=== PATIENT | male | born 1955 | race Caucasian/White ===

== ENCOUNTER → 2019-07-08 10:03 | Outpatient (CLI) | payer BC, SELFPAY ==
--- NOTE | 2019-07-08 10:21 | ECG_ITS ---
APPROVED REPORT Exam: Resting ECG HR:62 bpm ECG Measurements Heart Rate 62 AXES MT 144 P 34 QRSd 90 QRS 46 QT 412 T 47 QTc 418 <Conclusion> Normal sinus rhythm Normal ECG Electronically signed by : Jose Major, 07/09/2019 08:05:52
== END ==
PROVIDERS: PCP Family Medicine; Visit Provider Family Medicine
DX: R07.9 Chest pain, unspecified (principal)
CPT/HCPCS: 93005

== ENCOUNTER → 2019-07-13 07:56 | Outpatient (CLI) | payer SELFPAY ==
--- NOTE | 2019-07-13 | CA_ITS ---
APPROVED REPORT Exam: Exercise Treadmill Technologist: Maricruz Caldera Ht: 5 ft 11 in Wt: 185 lbs BSA: 2.04 m2 HR: 68 bpm BP: 120/74 mmHg Indications: Chest pain Stress Test Details Test: Urbano HR Resting HR: 68 bpm Max Heart Rate (APMHR): 158 bpm Max HR Achieved: 142 bpm Target HR (85% APMHR): 134 bpm % of APMHR: 89 Recovery HR: 84 bpm BP Resting BP: 120/74 mmHg Max BP: 157/75 mmHg Recovery BP: 139.0/73.0 mmHg ECG Clinical Exercise duration: 07:22 min Highest Stage Achieved: Exercise capacity: 10.1 METs Stress ECG Conclusion Resting ECG: Sinus rhythm Urbano protocol completed. Exercised 07:22. Test stopped due to shortness of breath, leg fatigue. Symptoms: Positive shortness of breath. Leg fatigue at peak exercise. Resolved in recovery. Arrhythmias/Ectopy: Less than 1.[address] depression. Conclusion: GXT only. Appropriate blood pressure response. No ectopy. Less than 1.[address] depression. No chest pain. Test Summary . . . . . . . . Stop exercise at 07:22 . . . . . Electronically signed by : Jose Major, 07/14/2019 17:17:41
--- NOTE | 2019-07-13 08:05 | CT_ITS ---
PROCEDURE: CT HEART W CALCIUM SCORE CLINICAL HISTORY: SCREENING COMPARISON: No exams were available for comparison TECHNIQUE: Gated images are obtained Axial images obtained with sagittal and coronal reformats. All CT scans at the facility use one or more dose reduction, viz: automated exposure control, ma/kV adjustment per patient size (including targeted exams where dose is matched to indication, i.e. head), or iterative reconstruction technique. FINDINGS: Coronary artery calcium score is 4 indicating minimal plaque burden with low cardiovascular disease risk Incidental findings include minimal pericardial thickening for anteriorly. There are atelectatic or fibrotic changes in the left lower lobe IMPRESSION: Minimal calcific plaque burden with low cardiovascular disease risk Dictated by: Angel Velázquez MD 07/13/2019 18:10 Electronically signed by Angel Velázquez MD in [place] 07/13/2019 18:10
== END ==
PROVIDERS: PCP Family Medicine; Visit Provider Family Medicine
DX: R07.9 Chest pain, unspecified (principal); Z13.6 Encounter for screening for cardiovascular disorders
CPT/HCPCS: 75571; 93017

== ENCOUNTER → 2019-07-13 08:00 | Outpatient (CLI) | payer BC, SELFPAY | PROVIDERS: PCP Family Medicine; Visit Provider Family Medicine | DX: R07.9 Chest pain, unspecified (principal) | CPT/HCPCS: 93017 ==

== ENCOUNTER → 2020-04-24 09:19 | Outpatient (CLI) | payer BC, SELFPAY ==
[2020-04-24 09:40] LABS: Basophils # 0.1 K/mm3 (0-0.2); Basophils % 0.8 % (0.1-2.0); Eosinophils # 0.2 K/mm3 (0.0-0.4); Eosinophils % 2.1 % (0.1-12.0); Hematocrit 56.3 % (42.0-52.0); Lymphocytes # 2.6 K/mm3 (0.7-4.5); Lymphocytes % 25.4 % (10-50); Mean Corpuscular HGB Conc 33.2 g/dL (31.8-35.4); Mean Corpuscular Hemoglobin 31.7 pg (27.0-31.2); Mean Corpuscular Volume 95.6 fl (80-94); Mean Platelet Volume 7.5 fl (7.4-10.4); Monocytes # 0.6 K/mm3 (0.1-1.0); Monocytes % 5.9 % (1.7-9.3); Neutrophils # 6.7 K/mm3 (1.8-7.8); Neutrophils % 65.8 % (37.0-80.0); Platelet Count 257 K/mm3 (142-424); Red Blood Count 5.89 M/mm3 (4.60-6.20); Red Cell Distribution Width 13.5 % (11.5-17.5); White Blood Count 10.2 K/mm3 (4.8-10.8)
[2020-04-24 09:42] LABS: Hemoglobin 18.6 g/dL (14.1-18.0)
[2020-04-24 11:08] LABS: Vitamin B12 742 pg/mL (239-931)
[2020-04-24 11:23] LABS: Folate 4.71 ng/mL
[2020-04-25 12:54] LABS: Ceruloplasmin 24.7 mg/dL (16.0-31.0)
== END ==
PROVIDERS: Visit Provider Nurse Practitioner Family
DX: R25.1 Tremor, unspecified (principal)
CPT/HCPCS: 36415; 82390; 82607; 82746; 85025

== ENCOUNTER → 2020-04-25 14:39 | Outpatient (CLI) | payer BC, SELFPAY ==
--- NOTE | 2020-04-25 14:53 | MR_ITS ---
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 No prior. COMPARISON: No exams were available for comparison TECHNIQUE: Routine multiplanar multi echo sequences are performed without gadolinium enhancement. FINDINGS: No midline shift, mass effect, intracranial hemorrhage, or hydrocephalus is evident. No evidence of acute infarction. The cerebellopontine angles, cerebellum, and brainstem have an unremarkable appearance. No abnormal white matter signal intensity. The pituitary optic chiasm, corpus callosum, and craniocervical junction have unremarkable appearance. The hippocampal gyri and temporal horns are unremarkable. No mastoid effusion or sinus air-fluid level. Small retention cyst is present in the medial wall the left maxillary sinus at 4 mm. IMPRESSION: Negative MRI of the brain. No acute intracranial findings. Dictated by: Angel Velázquez MD 04/26/2020 10:12 Angel Velázquez MD in [place] 04/26/2020 10:12
== END ==
PROVIDERS: PCP Family Medicine; Visit Provider Specialist
DX: R25.1 Tremor, unspecified (principal)
CPT/HCPCS: 70551

== ENCOUNTER → 2020-05-05 10:31 | Outpatient (CLI) | payer BC, SELFPAY ==
[2020-05-14 01:08] LABS: Erythropoietin 8.8 mIU/mL (2.6-18.5)
[2020-06-09 13:37] LABS: Carbon Monoxide, Whole Blood 2.3
== END ==
PROVIDERS: Visit Provider Internal Medicine Medical Oncology
DX: D45 Polycythemia vera (principal)
CPT/HCPCS: 36415; 81270; 82375; 82668

== ENCOUNTER → 2020-05-17 09:39 | Outpatient (CLI) | payer BC, SELFPAY | PROVIDERS: PCP Family Medicine; Visit Provider Internal Medicine Medical Oncology | DX: G47.33 Obstructive sleep apnea (adult) (pediatric) (principal); R53.83 Other fatigue | CPT/HCPCS: G0399 ==

== ENCOUNTER → 2020-10-04 11:17 | Outpatient (CLI) | payer BC, SELFPAY | PROVIDERS: Visit Provider Internal Medicine Gastroenterology | DX: Z20.822 Contact with and (suspected) exposure to COVID-19 (principal) | CPT/HCPCS: U0003 ==

== ENCOUNTER 2020-10-06 07:25 | Day surgery (SDC) | payer BC, SELFPAY ==
[2020-09-29 13:17] VITALS: BMI 26.5
[2020-10-06 07:46] VITALS: BP 136/79; PULSE 92; RESP 18; TEMP 36.6; O2SAT 95
[2020-10-06 07:54] LABS: POC Glucose,Bedside 123 (70-110)
--- NOTE | 2020-10-06 08:22 | P.PCN_ITS ---
[facility] Procedure Note Procedure Note:: Colonoscopy Procedure Report: Colonoscopy with cold snare polypectomy Endoscopist: Lauri Li II, MD Referring physician: Blu Estrada MD Date of Procedure: October 06, 2020 Equipment: Olympus 190 variable stiffness pediatric colonoscope Sedation: MAC sedation Indication: Mr. Shipley is a 64-year-old gentleman who is here for screening colonoscopy. His last colonoscopy 12 years ago was normal. He reports no abdominal pain, weight loss, change in his bowel habits or rectal bleeding. He reports no family history of colon cancer. His father had prostate cancer. Procedure: Prior to the procedure, a history and physical exam was performed, and patient's medications and allergies were reviewed. The risks, benefits and alternatives of the sedation and procedure were discussed with the patient. All questions were answered and informed consent was obtained. The patient was brought to the procedure room. Patient identification and proposed procedure were verified by the physician and the nurse. The patient was placed in a left lateral decubitus position and the scope was passed under direct vision. Throughout the procedure, the patient's blood pressure, pulse, and oxygen saturations were monitored continuously. The colonoscopy was accomplished without difficulty. The patient tolerated the procedure well. Findings: On digital rectal examination there was normal rectal tone. There were no external hemorrhoids. The prostate was 2-3+, smooth, soft, symmetric without nodules. The colonoscope was introduced through the anal canal to the rectum and advanced to the cecum. The ileocecal valve and appendiceal orifice were identified. The scope was advanced a short distance into the ileum which appeared grossly normal. The scope was then withdrawn into the colon. There were a total of 4 diminutive polyps (cecum x3 (3, 3 and 4 mm) and descending x1 (3 mm)) which were all removed via cold snare polypectomy. The remaining cecum, ascending and transverse colon and mucosa were grossly normal. There were scattered diverticuli throughout the descending and sigmoid colon (LEFT colon). The rectum itself was normal. Upon retroflexion within the rectum there were grade 1-2 internal hemorrhoids. The preparation was excellent throughout with Emerson Preparation Score of 9. The cecal time was 12 minutes. Impression: 1. Diminutive colonic polyps x4 2. Left-sided diverticulosis 3. Grade 1-2 internal hemorrhoids Plan: I will follow up the polyp pathology and recommend repeat colonoscopy again in 5-7 years based upon the polyp histology. I would encourage bulking fiber supplementation on a long-term daily maintenance basis.
--- NOTE | 2020-10-06 08:25 | P.PN_ITS ---
[facility] Anesthesia Checklist - Patient Identification Patient Identification: Arm Band - Structural Data Admitted From: Home Planned Operative Procedure/s: colonoscopy Consent for Planned Operative Procedure(s) Verified: Yes Verified Documents: Surgical Consent, History and Physical - NPO Status Verified Time NPO: 00:00 - Additional verifications Anesthesia Reactions: No - Airway Assessment C-Spine Mobility Assessed: Yes (mp2) TMJ Mobility Assessed: Yes Dentition: Good Dentition - Neurological Assessment Level of Consciousness: Awake, Alert - Anesthesia Plan Anesthesia Risk discussed: Yes Anesthesia Plan: Verified ASA Class: III Anesthesia Type: MAC [facility] History I have reviewed the patient's past medical history: Yes Medical History: Reports:: Anxiety, Diabetes Mellitus Type 2, Hyperlipidemia, Hypertension Denies:: Cancer, Diabetes Mellitus Type 1, Internal Pacemaker, MRSA, Seizures *Have you ever received a pneumonia vaccine?: No *Have you received a flu vaccine this season?: Yes Other Medical History: Reports: Arthritis Anesthesia experience/problems:: nac Other Surgeries: Yes: No Previous Surgery, Other. No: Pacemaker Amputation: No Fractures: No - *Social History Last grade of school completed: High school graduate Smoking Status: Never smoker Alcohol Intake: current Alcohol Intake Frequency:: holidays/special occasions only Substance Use Type: denies use *Occupational Status:: retired Housing: house Household Members: spouse *Travel in the last 8 weeks: None - Psychiatric History Pschychiatric History:: Reports:: Anxiety Family Hx:: Diabetes, Cancer
[2020-10-06 08:47] VITALS: BP 91/74; PULSE 75; RESP 18; TEMP 36.1; O2SAT 94
[2020-10-06 08:57] VITALS: BP 103/72; PULSE 70; RESP 18; O2SAT 93
[2020-10-06 09:14] VITALS: BP 128/72; PULSE 80; RESP 18; O2SAT 93
[2020-10-06 09:36] VITALS: BP 124/75; PULSE 69; RESP 18; O2SAT 97
[2020-10-06 12:27] VITALS: O2SAT 97
== END 2020-10-06 09:49 | disposition home or self-care (01) ==
PROVIDERS: PCP Family Medicine; Visit Provider Internal Medicine Gastroenterology
PROC: 0DJD8ZZ Inspection of Lower Intestinal Tract, Via Natural or Artificial Opening Endoscopic (ICD-10-PCS; CPT 45378; principal; 2020-10-06 08:30)
DX: Z12.11 Encounter for screening for malignant neoplasm of colon (principal); K63.5 Polyp of colon; K57.30 Diverticulosis of large intestine without perforation or abscess without bleeding; K64.0 First degree hemorrhoids; Z80.42 Family history of malignant neoplasm of prostate; E78.5 Hyperlipidemia, unspecified; I10 Essential (primary) hypertension; E11.9 Type 2 diabetes mellitus without complications; F41.9 Anxiety disorder, unspecified; M19.90 Unspecified osteoarthritis, unspecified site; Z83.3 Family history of diabetes mellitus; Z79.899 Other long term (current) drug therapy
CPT/HCPCS: 45385; 82962

== ENCOUNTER → 2020-11-16 14:53 | Outpatient (CLI) | payer BC, SELFPAY ==
[2020-11-16 16:03] LABS: Chloride 103 mmol/L (98-107); Potassium 4.3 mmoL/L (3.5-5.1); Sodium 138 mmol/L (136-145)
[2020-11-16 16:05] LABS: Blood Urea Nitrogen 21 mg/dl (9-20); Estimated Glomerular Filt Rate 75 ml/min (>60); GFR (African American) 91 ML/MIN (>60)
[2020-11-16 16:06] LABS: Alanine Aminotransferase 32 U/L (12-78); Albumin Level 4.1 g/dl (3.5-5.0); Albumin/Globulin Ratio 1.5 (1.1-1.8); Alkaline Phosphatase 66 U/L (38-126); Anion Gap 16.3 mEq/L (5-15); Aspartate Amino Transferase 33 U/L (17-59); Bilirubin,Total 0.2 mg/dl (0.2-1.3); Calcium 9.3 mg/dl (8.4-10.2); Carbon Dioxide 23 mmol/L (22.0-30.0); Globulin 2.7 g/dL (1.3-3.2); Glucose 140 mg/dl (74-100); Magnesium 1.8 mg/dl (1.6-2.3); Phosphorous 3.4 mg/dl (2.5-4.5); Total Protein,Serum 6.8 g/dl (6.3-8.2)
== END ==
PROVIDERS: Visit Provider Family Medicine
DX: R53.83 Other fatigue (principal)
CPT/HCPCS: 80053; 83735; 84100

== ENCOUNTER 2020-11-17 12:05 | Emergency (ER) | payer BC, SELFPAY ==
[2020-11-17 13:40] VITALS: BP 127/82; PULSE 89; RESP 18; TEMP 36.8; O2SAT 94; BMI 27.2
--- NOTE | 2020-11-17 14:13 | HMH.EDUTC ---
[facility] [place] Disposition Clinical Impression: Viral syndrome, Exposure to COVID-19 virus Disposition: Home, Self-Care Condition on Discharge: Good Instructions: DI for COVID-19 (Suspected or Confirmed ), Preventing the Spread of Coronavirus Discharge Instructions Additional Instructions: Drink plenty of fluids. Take tylenol for pain or fever. Return if you begin to have difficulty breathing. Follow up with your regular doctor. GO TO THE ER FOR ANY WORSENING SYMPTOMS Quarantine until you know the results of your covid-19 test. If it is positive, the health department should call you and give you further instructions about your length of Quarantine and other things. Notify your school or workplace of your results and follow their instructions regarding return to work/school. Referrals: Blu Estrada MD [Primary Care Provider] - Time of Disposition: 14:16 Medical Decision Making - Medical Records Medical records reviewed: No: I reviewed the patient's medical records. - Miky Inquiry Pt receiving controlled substance: No Vital Signs: 11/17/20 13:40 11/17/20 14:19 Temperature 98.3 F 98.3 F Temperature Source Oral Pulse Rate 89 Pulse Rate [Right Brachial] 89 Respiratory Rate 18 18 Blood Pressure 127/82 Blood Pressure [Right Arm] 127/82 Blood Pressure Mean [Right Arm] 97 Blood Pressure Source [Right Arm] Automatic Cuff Blood Pressure Position [Right Arm] Sitting 02 Sat by Pulse Oximetry 94 L Oxygen Delivery Method Room Air [facility] [place] HPI - General Stated complaint: covid test Time Seen by Provider: 11/17/20 14:13 Mode of Arrival: Ambulatory Source of Information: Patient Limitations: No Limitations Description of Symptoms (Recalled from Triage Doc. by RN): COVID TEST. STATES HE HAS BEEN FEELING SICK X 2 WEEKS HEENT Symptoms (Recalled from RN notes): No Resp Symptoms (Recalled from RN notes): No Skin Symptoms (Recalled from RN notes): No MS Symptoms (Recalled from RN notes): No Functional Status (Recalled from RN notes): WNL - History of Present Illness Provider Complaint: He is here to have a covid-19 test. He has felt very fatigued and he has had gi upset for the past several weeks. His pcp has did blood work and treated him diverticulitis. He states that he doesn't feel much better after finishing the anitibiotics that his pcp prescribed. He has an abdominal ct scan scheduled in 2 days to check further into the diverticulosis. He denies any cough, chest congestion, fever/chills/body aches. He has not been vaccinated against covid-19. - Related Data Home Medications Medication Instructions Recorded Confirmed empagliflozin 12.5 mg-metformin ER 1 tab PO BID 04/24/20 10/06/20 1,000 mg tablet,extended rel 24 hr lisinopril 10 1 tab PO DAILY tab 04/24/20 10/06/20 mg-hydrochlorothiazide 12.5 mg tablet meloxicam 15 mg tablet 15 mg PO DAILY tab 04/24/20 10/06/20 rosuvastatin 20 mg tablet 20 mg PO DAILY tab 04/24/20 10/06/20 cholecalciferol (vitamin D3) 125 125 mcg PO DAILY 06/19/20 10/06/20 mcg (5,000 unit) capsule Primidone 200 mg PO BID 09/29/20 10/06/20 Ubidecarenone/Vit E Acet [Co Q-10 2 each PO DAILY 09/29/20 10/06/20 100 mg Softgel] Allergies Allergy/AdvReac Type Severity Reaction Status Date / Time No Known Allergies Allergy Verified 10/06/20 07:39 - Worker's Comp Is this a Worker's Comp case?: No [facility] History - Hepatitis A Screen Drug use history?: No High risk sexual behaviors?: No History of sexually transmitted infection?: No Currently employed?: No Childcare worker?: No Do you have indoor plumbing?: Yes Do you have electricity?: Yes Attestation statement:: This patient has been screened for Hepatitis A risk factors. I have reviewed the patient's past medical history: Yes Medical History: Reports:: Anxiety, Diabetes Mellitus Type 2, Hyperlipidemia, Hypertension Denies:: Cancer, Diabetes Mellitus Type 1, Internal Pacemaker, MRSA, Seiz
[2020-11-17 14:19] VITALS: BP 127/82; PULSE 89; RESP 18; TEMP 36.8; O2SAT 94
== END 2020-11-17 14:22 | disposition home or self-care (01) ==
PROVIDERS: Emergency Provider Nurse Practitioner Family; PCP Family Medicine
DX: B34.9 Viral infection, unspecified (principal); Z20.822 Contact with and (suspected) exposure to COVID-19; I10 Essential (primary) hypertension; E11.9 Type 2 diabetes mellitus without complications; E78.5 Hyperlipidemia, unspecified; F41.9 Anxiety disorder, unspecified; Z79.899 Other long term (current) drug therapy
CPT/HCPCS: 99202; G0463; U0003

== ENCOUNTER → 2020-11-21 11:04 | Outpatient (CLI) | payer BC, SELFPAY ==
--- NOTE | 2020-11-21 11:12 | CT_ITS ---
PROCEDURE: CT ABDOMEN PELVIS W CON CLINICAL INDICATION: ABD PAIN Diverticulitis COMPARISON: No exams were available for comparison TECHNIQUE: IV Contrast: 75ML Isovue 370 Oral Contrast 450ml Redicat Axial images obtained with sagittal and coronal reformats. All CT scans at the facility use one or more dose reduction, viz: automated exposure control, ma/kV adjustment per patient size (including targeted exams where dose is matched to indication, i.e. head), or iterative reconstruction technique. FINDINGS: LOWER THORAX: Mild atelectatic changes in the lung bases ABDOMEN & PELVIS: The liver and gallbladder, pancreas, and adrenal glands appear unremarkable. 4 mm I so density in the central aspect of the spleen nonspecific. The spleen has otherwise unremarkable appearance. No renal or ureteral calculi. No hydronephrosis or hydroureter No intestinal obstruction or free air. There is a mild amount of retained colonic feces. There is a prominent appendicolith within the distal aspect of the appendix which measures 11 by 5 mm. No evidence of appendicitis. There are small bilateral inguinal hernias containing fat. Urinary bladder wall slightly thickened nonspecific. There is diverticulosis of the sigmoid colon but no evidence of diverticulitis. No abscess or perforation apparent. Bowel gas pattern is nonspecific with no evidence of obstruction. There is a tiny umbilical hernia containing fat. No acute bony findings evident. IMPRESSION: 1. No acute finding. No evidence of diverticulitis, abscess, or perforation.. 2. Prominent appendicoliths at 11 x 5 mm. No evidence of appendicitis. 3. Small bilateral inguinal hernias containing fat and a small umbilical hernia containing fat. Dictated by: Angel Velázquez MD 11/22/2020 13:05 Angel Velázquez MD in [place] 11/22/2020 13:05
== END ==
PROVIDERS: PCP Family Medicine; Visit Provider Family Medicine
DX: R10.32 Left lower quadrant pain (principal)
CPT/HCPCS: 74177; Q9967

== ENCOUNTER → 2021-01-10 10:05 | Outpatient (CLI) | payer BC, SELFPAY ==
[2021-01-10 11:30] LABS: Basophils # 0.1 K/mm3 (0-0.2); Basophils % 0.7 % (0.1-2.0); Eosinophils # 0.3 K/mm3 (0.0-0.4); Eosinophils % 2.3 % (0.1-12.0); Hematocrit 52.9 % (42.0-52.0); Hemoglobin 17.3 g/dL (14.1-18.0); Lymphocytes # 1.7 K/mm3 (0.7-4.5); Lymphocytes % 13.9 % (10-50); Mean Corpuscular HGB Conc 32.7 g/dL (31.8-35.4); Mean Corpuscular Hemoglobin 32.8 pg (27.0-31.2); Mean Corpuscular Volume 100.4 fl (80-94); Mean Platelet Volume 7.4 fl (7.4-10.4); Monocytes # 0.7 K/mm3 (0.1-1.0); Monocytes % 5.7 % (1.7-9.3); Neutrophils # 9.3 K/mm3 (1.8-7.8); Neutrophils % 77.4 % (37.0-80.0); Platelet Count 232 K/mm3 (142-424); Red Blood Count 5.27 M/mm3 (4.60-6.20); Red Cell Distribution Width 13.4 % (11.5-17.5)
== END ==
PROVIDERS: PCP Family Medicine; Visit Provider Family Medicine
DX: Z20.822 Contact with and (suspected) exposure to COVID-19 (principal)
CPT/HCPCS: 36415; 85025; C9803; U0003; U0005

== ENCOUNTER → 2021-03-13 09:24 | Outpatient (POV) | payer BC, SELFPAY | PROVIDERS: Visit Provider Dermatology | DX: Z00.00 Encounter for general adult medical examination without abnormal findings (principal) ==

== ENCOUNTER → 2021-06-06 10:25 | Outpatient (CLI) | payer BC, SELFPAY ==
[2021-06-06 12:49] LABS: Basophils # 0.1 K/mm3 (0-0.2); Basophils % 1.2 % (0.1-2.0); Eosinophils # 0.2 K/mm3 (0.0-0.4); Eosinophils % 2.4 % (0.1-12.0); Hematocrit 54.2 % (42.0-52.0); Hemoglobin 17.5 g/dL (14.1-18.0); Lymphocytes # 1.9 K/mm3 (0.7-4.5); Lymphocytes % 25.6 % (10-50); Mean Corpuscular HGB Conc 32.2 g/dL (31.8-35.4); Mean Corpuscular Hemoglobin 32.3 pg (27.0-31.2); Mean Corpuscular Volume 100.3 fl (80-94); Monocytes # 0.4 K/mm3 (0.1-1.0); Monocytes % 5.6 % (1.7-9.3); Neutrophils # 4.9 K/mm3 (1.8-7.8); Neutrophils % 65.2 % (37.0-80.0); Platelet Count 238 K/mm3 (142-424); Red Blood Count 5.41 M/mm3 (4.60-6.20); Red Cell Distribution Width 13.1 % (11.5-17.5); White Blood Count 7.5 K/mm3 (4.8-10.8)
[2021-06-06 13:10] LABS: C-Reactive Protein 4.5 mg/L (0-4)
[2021-06-06 14:01] LABS: Erythrocyte Sedimentation Rate 5 mm/hr (0-20)
== END ==
PROVIDERS: Visit Provider Orthopaedic Surgery
DX: Z01.818 Encounter for other preprocedural examination (principal); Z11.52 Encounter for screening for COVID-19
CPT/HCPCS: 36415; 85025; 85651; 86140; C9803; U0003; U0005

== ENCOUNTER 2021-06-08 06:02 | Day surgery (SDC) | payer BC, SELFPAY ==
[2021-06-07 11:02] VITALS: BMI 26.5
[2021-06-07 11:48] LABS: Chloride 105 mmol/L (98-107); Potassium 4.4 mmoL/L (3.5-5.1); Sodium 139 mmol/L (136-145)
[2021-06-07 11:51] LABS: Alanine Aminotransferase 26 U/L (12-78); Albumin Level 4.4 g/dl (3.5-5.0); Albumin/Globulin Ratio 1.7 (1.1-1.8); Alkaline Phosphatase 64 U/L (38-126); Anion Gap 13.4 mEq/L (5-15); Aspartate Amino Transferase 28 U/L (17-59); Bilirubin,Total 0.4 mg/dl (0.2-1.3); Blood Urea Nitrogen 19 mg/dl (9-20); Carbon Dioxide 25 mmol/L (22.0-30.0); Creatinine Clearance Estimated 89 mL/min (50-200); Estimated Glomerular Filt Rate 75 ml/min (>60); GFR (African American) 91 ML/MIN (>60); Globulin 2.6 g/dL (1.3-3.2)
[2021-06-07 11:52] LABS: Calcium 8.5 mg/dl (8.4-10.2); Glucose 130 mg/dl (74-100)
[2021-06-08 06:22] VITALS: BP 140/89; PULSE 67; RESP 18; TEMP 36.2; O2SAT 96
--- NOTE | 2021-06-08 08:02 | HMH.ANESCL ---
[facility] Anesthesia Checklist - Patient Identification Patient Identification: Arm Band - Structural Data Admitted From: Home Planned Operative Procedure/s: Left Carpal Tunnel Release, Left Cubital Tunnel Release Consent for Planned Operative Procedure(s) Verified: Yes Verified Documents: Surgical Consent, History and Physical - NPO Status Verified Time NPO: 00:00 - Additional verifications Anesthesia Reactions: No Hx Blood Transfusions: No Blood Transfusion Reaction: No - Airway Assessment C-Spine Mobility Assessed: Yes (mp2) TMJ Mobility Assessed: Yes Dentition: Good Dentition - Neurological Assessment Level of Consciousness: Awake, Alert - Anesthesia Plan Anesthesia Risk discussed: Yes Anesthesia Plan: Verified ASA Class: II Anesthesia Type: MAC [facility] History I have reviewed the patient's past medical history: Yes Medical History: Reports:: Anxiety, Diabetes Mellitus Type 2, Hyperlipidemia, Hypertension Denies:: Cancer, Diabetes Mellitus Type 1, Internal Pacemaker, MRSA, Seizures *Have you ever received a pneumonia vaccine?: No *Have you received a flu vaccine this season?: Yes Other Medical History: Reports: Arthritis. Denies: Blood Transfusion Reaction Anesthesia experience/problems:: nac Other Surgeries: Yes: No Previous Surgery, Colonoscopy, Other. No: Pacemaker Amputation: No Fractures: No - *Social History Last grade of school completed: High school graduate Smoking Status: Never smoker Alcohol Intake: never Alcohol Intake Frequency:: holidays/special occasions only Substance Use Type: denies use *Occupational Status:: retired Housing: house Household Members: spouse *Travel in the last 8 weeks: None - Psychiatric History Pschychiatric History:: Reports:: Anxiety Family Hx:: Diabetes, Cancer
[2021-06-08 09:05] VITALS: BP 121/87; PULSE 63; RESP 16; TEMP 36.2; O2SAT 92
[2021-06-08 09:20] VITALS: BP 135/77; PULSE 54; RESP 16; O2SAT 95
--- NOTE | 2021-06-08 09:21 | HMH.OPNOTE ---
Date of procedure: 06/08/21 Pre-op Diagnosis:: Left carpal tunnel syndrome, left cubital tunnel syndrome Post-op Diagnosis:: Same Procedure performed:: Left endoscopic carpal tunnel release, left cubital tunnel release Surgeon:: Jose Guadalupe Benson JR, MD Anesthesia: GETA Estimated blood loss (mL): 5 Operative findings:: Decompression of the ulnar nerve at the elbow, median nerve at the wrist. Release of the transverse carpal ligament confirmed endoscopically. No ulnar nerve subluxation noted. Operative note:: Patient was identified in preoperative holding. Operative site was marked in indelible ink. History, physical, consent were reviewed and updated. Patient was surrendered to the anesthesia team, taken to the operative suite, placed supine on a well-padded operative table. A nonsterile tourniquet placed on the proximal brachium. Anesthesia was induced. The operative extremity was prepped and draped in the usual sterile fashion. The operative team donned sterile gowns and gloves and a timeout was called. All in attendance agreed regarding the patient's identity, procedure, operative site. Weight-based dose of antibiotics was given prior to incision. I made a transverse incision at the proximal wrist crease proximal to the transverse carpal ligament. I bluntly dissected through skin and subcutaneous tissue with care taken to avoid injuring the palmaris longus. I transected the fascia, inserted a dilating probe deep to the transverse carpal ligament and noted its depth distal to the transverse carpal ligament. I then inserted a cannula and scope, visualize the fibers of the transverse carpal ligament. I took to the distal aspect of the transverse carpal ligament to confirm its location, then with a curved blade under endoscopic visualization, transected the fibers of the transverse carpal ligament and noted that they retracted medially and laterally. I removed the cannula, achieved hemostasis, closed with Monocryl, Prineo and Dermabond. The patient was brought to the operating room and once an adequate general anesthesia was achieved, his left upper extremity was prepped and draped in standard sterile fashion. A sterile tourniquet was positioned and tourniquet was inflated at 250 mmHg. Perioperative antibiotics were infused. Time-out procedure was called. The medial epicondyle and the olecranon tip were well palpated. The incision was initiated at equidistant between the olecranon and the medial epicondyle. The ulnar nerve was identified proximally. It was mobilized with a blunt and a sharp dissection proximally to the arcade of [place], which was released sharply. The roof of the cubital tunnel was then incised and the nerve was mobilized distally to its motor branches. The ulnar nerve was well-isolated before it entered the cubital tunnel. The arch of the FCU was well defined. The fascia was elevated from the nerve and both the FCU fascia and the Ross fascia were divided protecting the nerve under direct visualization. Distally, the dissection was carried between the 2 heads of the FCU. Decompression of the nerve was performed between the heads of the FCU. The muscular branches were well protected. Similarly, the cutaneous branches in the arm and forearm were well protected. The venous plexus proximally and distally were well protected. The nerve was well mobilized from the cubital tunnel preserving the small longitudinal vessels accompanying it. Proximally, multiple vascular leashes were defined near the incision of the septum into the medial epicondyle, which were also protected. Once the in situ decompression of the ulnar nerve was performed proximally and distally, the elbow was flexed and extended. There was no evidence of any subluxation. Satisfactory decompression was performed. Tourniquet was released. Hemostasis was achieved. Subcutaneous layer was closed with 2-0 Vicryl and skin was approximated with Monocryl, Prineo, Dermabond. Nishant quinones
[2021-06-08 09:35] VITALS: BP 148/94; PULSE 58; RESP 16; O2SAT 94
[2021-06-08 09:50] VITALS: BP 131/79; PULSE 51; RESP 16; O2SAT 95
[2021-06-08 10:15] VITALS: BP 147/87; PULSE 54; RESP 16; O2SAT 95
[2021-12-20 10:58] LABS: POC Glucose,Bedside 152 (70-110)
== END 2021-06-08 10:15 | disposition home or self-care (01) ==
LOC: OR 06:04
PROVIDERS: PCP Family Medicine; Visit Provider Orthopaedic Surgery
PROC: (CPT 64721; principal; 2021-06-08 07:30)
DX: G56.02 Carpal tunnel syndrome, left upper limb (principal); G56.22 Lesion of ulnar nerve, left upper limb
CPT/HCPCS: 64721; 64718; 80053; 82962; 96374

== ENCOUNTER → 2021-07-26 09:31 | Outpatient (CLI) | payer BC, SELFPAY ==
--- NOTE | 2021-07-26 09:31 | MR_ITS ---
FINAL REPORT CLINICAL HISTORY: left wrist pain/ CTS left wrist pain , swelling and discolored , pt unable to move finger well pt also had surgery 8 weeks ago for carpal tunnel release and ulnar nerve release FINDINGS: MRI JOINT UPPER EXTREMITY W/O CONTRAST Multiplanar MR imaging of the left wrist was performed without contrast. There are mild degenerative changes. There is no evidence of fracture, bone bruise or marrow edema. There is no evidence of intrinsic ligament injury. There is a partial tear at the ulnar attachment of the triangular fibrocartilage. The flexor and extensor tendons are intact. There is small joint effusions. There is a 5 mm presumed ganglion cyst along the volar radial aspect of the wrist at the level of the distal radius. No focal abnormality is identified of the median nerve. IMPRESSION: Partial tear at the ulnar attachment of the triangular fibrocartilage. 5 mm presumed ganglion cyst as described. Small joint effusions. Reviewed, Interpreted and Dictated by Jose Billings III, MD Transcribed by Nicole Horowitz Authenticated by Jose Billings III, MD on 07/26/2021 12:53:15 PM [facility]
== END ==
PROVIDERS: PCP Family Medicine; Visit Provider Orthopaedic Surgery
DX: G56.02 Carpal tunnel syndrome, left upper limb (principal); G56.22 Lesion of ulnar nerve, left upper limb
CPT/HCPCS: 73221

== ENCOUNTER 2021-08-08 10:00 | Outpatient (RCR) | payer BC, SELFPAY ==
--- NOTE | 2021-07-02 10:49 | HMH.OTOPEV ---
OT Inpatient Evaluation Rehab OT Outpatient Eval Start: 07/02/21 10:17 Freq: Status: Active Protocol: Document 07/02/21 10:18 JAVIER (Rec: 07/02/21 10:49 JAVIER [id number]) Electronically Signed By Lisseth Britton OT 07/02/21 10:18 Outpatient Therapy Subjective History Subjective History 65 year old male referred to skilled OP OT services for left carpal tunnel release and left cubital tunnel release on 06/08/21. However Patient is only being seen for left carpal tunnel release due to increase pain, limited AROM and triage clinician strengthening. Patient stated having difficulty with grasping everday items such as hygiene/ grooming and utensils for self feeding. Patient stated to be dropping items 2* pain and weakness. Chief Complaint Pain,Weakness,Decreased Coordination Symptom Type Ache,Numbness,Tingling, Shooting Symptoms Relieved By Nothing Symptoms Aggravated By Physical Activity Prior Functional Limitations None Current Functional Limitations Reaching,Lifting,Recreation Activity Symptom Description Intermittent Level of pain today (0-10) 0 Pain scale - at its best (0-10) 0 Pain scale - at its worst (0-10) 9 Wrist/Hand Eval Wrist Range of Motion Left Wrist Extension Active Range of Motion ( 54 degrees) Wrist Flexion Active Range of Motion ( 60 degrees) Wrist Radial Deviation Active Range of 16 Motion (degrees) Wrist Ulnar Deviation Active Range of 20 Motion (degrees) Forearm Supination Active Range of 90 Motion (degrees) Forearm Pronation Active Range of Motion 90 (degrees) Lithograph Printer/Pinch Strength Right Lithograph Printer Strength Measurement (lbs) 65 Left Lithograph Printer Strength Measurement (lbs) 18 OT Outpatient Assessment Impairments Problems/Impairments Impaired Range of Motion, Impaired Strength,Subjective C /O Pain Prognosis Rehab Potential Good Clinical Impression Consistent with Diagnosis Yes Short Term Goals Number of Weeks 2 Increase Range of Motion Yes: AROM of L UE wrist flex: 65; ext: 60; RD: 18; UD: 25
== END 2021-08-08 10:05 | disposition home or self-care (01) ==
LOC: OT 10:00
PROVIDERS: Visit Provider Orthopaedic Surgery
DX: G56.02 Carpal tunnel syndrome, left upper limb (principal)
CPT/HCPCS: 97010; 97014; 97035; 97110; 97140; 97164; 97165; 97530; G0283

== ENCOUNTER → 2022-10-29 13:46 | Outpatient (POV) | payer MEDICARE, BC, SELFPAY | PROVIDERS: Visit Provider Dermatology | DX: Z00.00 Encounter for general adult medical examination without abnormal findings (principal) ==

== ENCOUNTER 2023-01-06 08:00 | Emergency (ER) | payer MEDICARE, BC, SELFPAY ==
[2023-01-06 08:10] VITALS: BP 131/75; PULSE 96; RESP 20; TEMP 36.8; O2SAT 94; BMI 25.8
--- NOTE | 2023-01-06 08:23 | EXP.UTC ---
Discharge Plan Disposition Patient Disposition: Home, Self-Care Condition: Good Prescriptions Prescriptions: New amoxicillin [amoxicillin] 875 mg tablet 875 mg PO Q12H Qty: 20 0RF methylprednisolone 4 mg Tablets,Dose Pack 4 mg PO DIRECTED Qty: 21 0RF hirvxjzwikuhmxu-rifjunxfl-UO [Bromfed DM] 2-30-10 mg/5 mL Syrup 5 ml PO Q6H PRN (Reason: Cough) Qty: 240 0RF ondansetron 4 mg Tablet,Disintegrating 4 mg PO Q8H PRN (Reason: Nausea) Qty: 12 0RF No Action empagliflozin-metformin 12.5-1,000 mg tablet, IR - ER, biphasic 24hr 1 tab PO BID lisinopril-hydrochlorothiazide 10-12.5 mg tablet 1 tab PO DAILY Patient Comments: TAKE 1 TABLET BY MOUTH ONCE DAILY rosuvastatin 20 mg tablet 20 mg PO DAILY meloxicam 15 mg tablet 15 mg PO DAILY primidone 250 mg tablet 250 mg PO BID Patient Comments: TAKE 1 TABLET BY MOUTH TWICE DAILY propranolol 160 mg capsule,extended release 24 hr 160 mg PO DAILY Patient Comments: TAKE 1 CAPSULE BY MOUTH ONCE DAILY Rybelsus 7 mg tablet 7 mg PO DAILY cholecalciferol (vitamin D3) 125 mcg (5,000 unit) capsule 125 mcg PO DAILY coenzyme Q10 [CoQ-10] 100 mg Capsule 200 mg PO DAILY Referrals Follow up/Referrals: Blu Estrada MD [Primary Care Provider] - See instructions Activity Restrictions/Add. Instructions Additional Instructions/Restrictions: Drink plenty of fluids. Take tylenol or ibuprofen for pain or fever. Take the medications as directed. Follow up with your regular doctor. GO TO THE ER FOR ANY WORSENING SYMPTOMS Clinical Impressions Clinical Impression: Pharyngitis, Acute viral syndrome, Exposure to 2019 novel coronavirus Instructions Patient Instructions: Dexamethasone Injection, Coronavirus Disease 2019, Preventing the Spread of Coronavirus Discharge Instructions Discharge ED Provider: Drake Motley [facility] HPI General Stated complaint: Sore throat and Headache Mode of Arrival: Ambulatory Source of Information: Patient Limitations: No Limitations Time Seen by Provider: 01/06/23 08:23 Description of Symptoms (Recalled from Triage Doc. by RN): PATIENT C/O HEADACHE, CONGESTION, AND SORE THROAT X 3 DAYS. HE STATES HIS TESTED POSITIVE FOR COVID ON FRIDAY HEENT Symptoms (Recalled from RN notes): Yes Resp Symptoms (Recalled from RN notes): No Skin Symptoms (Recalled from RN notes): No MS Symptoms (Recalled from RN notes): No Functional Status (Recalled from RN notes): WNL History of Present Illness Provider Complaint: He states that for the past 2 days he has had a very sore throat and chills. His tested positive for covid-19 1 day ago. He denies any chest congestion and shortness of breath. Related Data Home Medications Medication Instructions Recorded Confirmed empagliflozin 12.5 mg-metformin ER 1 tab PO BID Diabetes 04/24/20 01/06/23 1,000 mg tablet,extended rel 24 hr lisinopril 10 1 tab PO DAILY Hypertension 04/24/20 01/06/23 mg-hydrochlorothiazide 12.5 mg tablet meloxicam 15 mg tablet 15 mg PO DAILY Arthritis 04/24/20 01/06/23 rosuvastatin 20 mg tablet 20 mg PO DAILY Cholesterol 04/24/20 01/06/23 cholecalciferol (vitamin D3) 125 125 mcg PO DAILY Supplement 06/19/20 01/06/23 mcg (5,000 unit) capsule primidone 250 mg tablet 250 mg PO BID 07/30/21 01/06/23 propranolol 160 mg capsule,24 160 mg PO DAILY 07/30/21 01/06/23 hr,extended release semaglutide 7 mg tablet (Rybelsus) 7 mg PO DAILY 01/01/23 01/06/23 coenzyme Q10 100 mg capsule 200 mg PO DAILY 01/06/23 01/06/23 (CoQ-10) Previous Rx's Medication Instructions Recorded amoxicillin 875 mg tablet 875 mg PO Q12H #20 tabs 01/06/23 wgmufzpyyrrcddy-qhrowtkbaueyuju-MT 5 ml PO Q6H PRN Cough #240 mL 01/06/23 2 mg-30 mg-10 mg/5 mL oral syrup (Bromfed DM) methylprednisolone 4 mg tablets in 4 mg PO DIRECTED #21 tabs 01/06/23 a dose pack ondansetron 4 mg disintegrating 4 mg PO Q8H PRN Na
[2023-01-06 08:26] LABS: UTC Strep Screen (Rapid) Negative (Negative)
[2023-01-06 08:39] VITALS: BP 131/75; PULSE 96; RESP 20; TEMP 36.8; O2SAT 94
== END 2023-01-06 08:46 | disposition home or self-care (01) ==
PROVIDERS: Emergency Provider Nurse Practitioner Family; PCP Family Medicine
DX: U07.1 COVID-19 (principal); R51.9 Headache, unspecified; I10 Essential (primary) hypertension; E78.5 Hyperlipidemia, unspecified; E11.9 Type 2 diabetes mellitus without complications; G47.33 Obstructive sleep apnea (adult) (pediatric); Z79.84 Long term (current) use of oral hypoglycemic drugs
CPT/HCPCS: 87635; 87880; 96372; 99212; 99214; G0463

== ENCOUNTER 2024-09-09 11:07 | Outpatient (CLI) | payer MEDICARE, BC, SELFPAY ==
--- OUTSIDE RECORDS SUMMARY | 2024-03-09 05:00 | XMS_ITS ---
Author Organization [facility] Address [address] [place] [id number] Care Team Providers Care Tub Puller Name Role Phone Blu Estrada Primary Care Provider Allergies No Known Allergies REASON FOR VISIT 6 month check Medications Medication SIG (Take, Route, Frequency, Duration) Notes Start Date End Date Status Synjardy XR 12.5-1000 MG 1 tab Orally Once a day Active Sildenafil Citrate 20 MG 1 to 5 tab(s) o rally once daily as needed 08/07/2020 Active RELION GLUCOMETER 10/17/2016 A ctive Vitamin D3 125 MCG (5000 UT) 1 cap(s) orally once a day Active Rybelsus 7 MG 1 tablet at least 30 minutes before first food, beverage or other oral medicine of the day Orally Once a day 09/05/2022 Active Meloxicam 15 MG 1 tablet Orally once daily for 90 days Active ReliOn Blood Glucose Test - as directed In Vitro Active ReliOn Lancets Ultra-Thin 30G - as directed Active Terbinafine HCl 250 MG 1 tablet Orally O nce a day for 90 days 03/09/2024 Active CoQ-10 100 MG as directed Orally Active Propranolol HCl ER 160 MG 1 capsule Oral ly Once a day for 90 days Active Rosuvastatin Calcium 20 MG 1 tab(s) oral ly once a day (at bedtime) for 90 days Active Modafinil 100 MG 1 tab(s) Orally Two times a day Active Primidone 250 MG 1 tablet Orally Two times a day for 90 days Active Lisinopril 10 MG 1 tablet Orally Once a day Active Immunizations Vaccine Route Administration Date Status Comme nts Fluzone High Dose (65yr and older) IM Intramuscular 03/09/2024 Administered PNEUMOVAX 23 VACCINE IM Intramuscular 03/09/2024 Administe red Vital Signs Blood pressure systolic 120 mm Hg 03/09/20 24 Blood pressure diastolic 70 mm Hg 024 Heart Rate 90 /min 03/09/2024 Height 69.50 in 03/09/2024 Weight 182 lbs 03/09/2024 BMI 26.49 kg/m2 03/09/2024 Encounters Encounter Location Date Provider Diagnosis [facility] [address] [facility] 36 [facility] [address] [place] [id number] 03/09/2024 Blu Estrada Essential hypertensi on I10 ; Vitamin D deficiency E55.9 ; Mixed hyperlipidemia E78.2 ; Hypertriglyceridemia E78.1 ; Essential tremor G25.0 and Encounter for immunization Z23 Assessments Encounter Date Diagnosis (ICD Code) Assessment Notes Treatment Notes Treatment Clinical Notes Section Notes 03/09/2024 Essential hypertensi on (ICD-10 - I10) 03/09/2024 Vitamin D deficiency (ICD-10 - E55.9) 03/09/2024 Mixed hyperlipidemia (ICD-10 - E78.2) 03/09/2024 Hypertriglyceridemia (ICD-10 - E78.1) 03/09/2024 Essential tremor (IC D-10 - G25.0) 03/09/2024 Encounter for immunization (ICD-10 - Z23) Plan Of Treatment Medication Medication Name Sig Start Date Stop Date Notes Meloxicam 15 MG 1 tablet Orally once daily for 90 days Terbinafine HCl 250 MG 1 tablet Orally O nce a day for 90 days 03/09/2024 Propranolol HCl ER 160 MG 1 capsule Oral ly Once a day for 90 days Rosuvastatin Calcium 20 MG 1 tab(s) oral ly once a day (at bedtime) for 90 days Primidone 250 MG 1 tablet Orally Two times a day for 90 days Lisinopril 10 MG 1 tablet Orally Once a day Next Appt Details Follow Up: 6 Months, Reason: Provider Name:Blu allen, 03/09/2025 10:15:00 AM, [address] [facility], [address], [place], [id number], Progress Notes * Darrion COWAN:[birth year] (68 yo M)Acc No.[id number]:03/09/2024 Progress Notes Patient: Darrion CONNOR Provider: Cody Estrada M.D. :1955 A ge:68 Y S ex:Male Date:03/09/2024 Address:[address] [place] [address] [id number] Subjective: * Chief Complaints: * 1 . 6 month check. * HPI: C ardiology: 68 year old male presents with c/o Blood Pressure Elevated P t here for 6 mo f/u on hypertension, states he is doing well and does not have any concerns. c/o Hyperlipidemia P t is fasting today. E ndocrinology: c/o Recent Blood Sugars P t here to f/u on DM 2, pt states he does check blood sugar at home and it has been normal . Pt states he sees Endo and his A1C was 6.5% in January. * ROS: D ERMATOLOGY: no R allan. [...] day Orally Once a day , Taking Meloxicam 15 MG Tablet Take 1 tablet by mouth once daily , Taking Synjardy XR 12.5-1000 MG Tablet Extended Release 24 Hour 1 tab Orally Once a day , Taking Propranolol HCl ER 160 MG Capsule Extended Release 24 Hour 1 capsule Orally Once a day , Taking Rosuvastatin Calcium 20 MG Tablet 1 tab(s) orally once a day (at bedtime) , Taking Lisinopril 10 MG Tablet 1 tablet Orally Once a day , Taking Primidone 250 MG Tablet Take 1 tablet by mouth twice daily for 90 days , Discontinued Terbinafine HCl 250 MG Tablet 1 tablet Orally Once a day , Discontinued Cefdinir 300 MG Capsule 1 cap(s) Orally Two times a day , Medication List reviewed and reconciled with the patient * Allergies: N .K.D.A. Objective: * Vitals: W t:182, Temp:97.6, BP:120/70, HR:90, Nurse:lanie, Ht: 69.50, BMI:26.49. * Examination: E ndocrinology: General Appearance: N AD. Heart: R SR. Lungs: c lear to auscultation. Extremities: n o leg edema. Skin: l eft great toenail thickened and crumbling distally.? Assessment: * Assessment: 1. E ssential hypertension - I10 (Primary) 2 . V itamin D deficiency - E55.9 3 . M ixed hyperlipidemia - E78.2 4 . H ypertriglyceridemia - E78.1 5 . E ssential tremor - G25.0 6 . E ncounter for immunization - Z23 Plan: * Treatment: 2. M ixed hyperlipidemia Refill Rosuvastatin Calcium Tablet, 20 MG, 1 tab(s), orally, once a day (at bedtime), 90 days, 90, Refills 1. 3. E ssential tremor Refill Primidone Tablet, 250 MG, 1 tablet, Orally, Two times a day, 90 days, 180 Tablet, Refills 1.? 4. O thers Refill Meloxicam Tablet, 15 MG, 1 tablet, Orally, once daily, 90 days, 90, Refills 1; S tart Terbinafine HCl Tablet, 250 MG, 1 tablet, Orally, Once a day, 90 days, 90 Tablet, Refills 0. ? * Immunizations: Fluzone High Dose (65yr and older) : 0.5 mL (Route: Intramuscular) given by Lisa De La Garza on Right Deltoid (Encounter for immunization) PNEUMOVAX 23 VACCINE : 0.5 mL (Route: Intramuscular) given by Lisa De La Garza on Left Arm (Encounter for immunization) * Procedure Codes: G 2211 Complex e/m visit add on * Follow Up: 6 Months * Billing Information: * Visit Code: 40858 Office Visit, Est Pt., Level 4. * Procedure Codes: G2211 Complex e/m visit add on. * Electronic signature of Cyn Estrada MD on 09/09/2024 at 11:16 AM EDT Sign off status: Pending * Provider: Cody Estrada M.D. Date: 1 05/10/2023 Generated for Mayco almaraz/Barbara/Jayitting on: 0 09/09/2024 11:16 AM EDT History and Physical Notes * HPI (History of Present Illness) Category Sub-Category Detail Notes Category Not es Endocrinology Recent Blood Sugars Pt here to f /u on DM 2, pt states he does check blood sugar at home and it has been normal . Pt states he sees Endo and his A1C was 6.5% in January Cardiology Blood Pressure Elevated Pt here for 6 mo f/u on hypertension, states he is doing well and does not have any concerns Hyperlipidemia Pt is fasting today Examination Category Sub-Category Detail Notes Category Not es Endocrinology Heart: RSR Lungs: clear to auscultatio n Extremities: no leg edema General Appearance: NAD Skin: left great toenail t hickened and crumbling distally
--- OUTSIDE RECORDS SUMMARY | 2024-07-29 10:00 | XMS_ITS | Encounter Summary ---
Author Organization Healthcare Address [address] [place] [address] Care Team Providers Care Restaurant Crew Name Role Phone Blu Estrada MD Primary Care Provider [phone] Encounter Details Date Type Department Care Team (Late st Contact Info) Description 07/29/2024 10:00 AM EDT [facility] [place] [facility] Room E214 [address] [place] [phone] Jenifer Tejeda, DDS [address] [place] [address] [phone] Traci Dozier Obstructive sleep apnea (Primary Dx) Social History Tobacco Use Types Packs/Day Years Used Date Smoking Tobacco: Never Assessed Sex and Gender Information Value Date Recorded Sex Assigned at Not on file Legal Sex Male 8:52 PM EDT Gender Identity Not on file Sexual Orientation Not on file documented as of this encounter Last Filed Vital Signs Vital Sign Reading Time Taken Comments Blood Pressure 161/92 07/29/2024 9:34 AM EDT Pulse 68 07/29/2024 9:34 AM EDT Temperature 36.7 C (98 F) 07/29/2024 9:34 AM EDT Respiratory Rate - - Oxygen Saturation 96% 07/29/2024 9:34 AM EDT Inhaled Oxygen Concentration - - Weight 81.8 kg (180 lb 5.4 oz) 07/29/2024 9:34 A M EDT Height 177.8 cm (5' 10 ) 07/29/2024 9:34 AM EDT Body Mass Index 25.88 07/29/2024 9:34 AM EDT documented in this encounter Miscellaneous Notes * Progress Notes - Traci Dozier - 07/29/2024 10:00 AM EDT Patient returned to the [facility] the [facility] for a follow-up appointment to evaluate his Panthera appliance for the management of moderate PETER. History of present illness: Darrion Shipley reported some improvement in his symptoms since ourlast appointment. Reportedly, he uses the appliance every night for 8 hours and indicated using theAM shipping and receiving associate every morning for 5 minutes as recommended. He denied for snoring and denied gasping forair. Reportedly, his sleep quality improved significantly, and his nocturia not changed (from 1 to 1 ). His daytime sleepiness remained unchanged and naps of 2 hours in the afternoon (denied using theappliance during his naps). EES=5. Darrion Shipley denied changes in his bite and denied pain in jaw muscles and/or TMJ. Appointment Date ESS Night-time urination Initial eval 04/15/24 3 1 FU #1 06/24/24 3 0 FU #2 07/08/24 6 0 FU #3 07/29/2024 5 1 Medical history: No changes were reported since last visit. Examination: Visit Vitals BP (!) 161/92 Pulse 68 Temp 36.7 ??C (98 ??F) Ht 1.778 m (5' 10 ) Wt 81.8 kg (180 lb 5.4 oz) SpO2 96% BMI 25.88 kg/m?? No changes in occlusion noted since last appointment. No dental mobility was found LA occlusal contact with max stock was noted between all teeth except teeth #6- 11 and their antagonist. No pain upon palpation. No noises were recorded. Max opening 50 mm. Vertical overbite 3 mm and horizontal overjet 4 mm. Procedure: Appliance had size 28 arms. It was advanced 1 mm per side for a total of 27 mm arms. It was tried for 10 minutes and patient indicated it felt comfortable. Remaining protrusive movement 4 mm. Appointment Date Adjustment of appliance Total amount of protrusion Delivery 3/6/25 Arm #30 FU #1 06/24/24 Arm # 29 +1 mm FU #2 07/08/24 Arm #28 +1 mm FU #3 07/29/24 Arm #27 +1 mm Assessment: Moderate obstructive sleep apnea managed by MAD pending results of second sleep study. Plan: Patient to continue wearing appliance nightly and recommended to use while taking nap. We will evaluate his symptoms in next visit and refer for the second sleep study since patient has not noted further benefit with the last advacements. Patient to return for follow-up appointment on 08/19/2024. Cosigned by Jenifer Tejeda DDS at 08/02/2024 3:38 PM EDT Associated attestation - Jenifer Tejeda DDS - 08/02/2024 3:38 PM EDT I saw and evaluated the patient, I discussed the case with the student services director and agree with the notes as documented below. documented in this encounter Plan of Treatment Upcoming Encounters Date Type Department Care Team (Late st Contact Info) Description 09/14/2024 11:00 AM EDT [facility] [place] [facility] Room [facility] [place] [address] Jenifer Tejeda DDS [address] [phone] [place] Berrios documented as of this encounter Visit Diagnoses Diagnosis Obstructive sleep apnea- Primary Obstructive sleep apnea (adult) (pediatric) documented in this encounter Additional Health Concerns Assessment Noted Time A Body Mass Index follow-up plan has been documented for the patient 08/02/2024 3:39 PM EDT documented as of this encounter Care Teams Restaurant Crew Relationship Specialty Start Date End Date Blu Estrada MD [address] [place] [id number] PCP - General 08/09/21 documented as of this encounter
--- OUTSIDE RECORDS SUMMARY | 2024-08-19 10:30 | XMS_ITS | Encounter Summary ---
Author Organization Healthcare Address [address] [place] [address] Care Team Providers Care Corporate Bond Trader Name Role Phone Blu Estrada MD Primary Care Provider Encounter Details Date Type Department Care Team (Late st Contact Info) Description 08/19/2024 10:30 AM EDT Office Visit [facility] Room E214 [address] [place] [address] Jenifer Tejeda, DDS [address] [place] [address] [phone] El Modi Obstructive sleep apnea (Primary Dx) Social History [...] Sign Reading Time Taken Comments Blood Pressure 158/100 08/19/2024 10:11 AM EDT Pulse 78 08/19/2024 10:11 AM EDT Temperature 36.4 C (97.6 F) 08/19/2024 10:11 AM EDT Respiratory Rate - - Oxygen Saturation 96% 08/19/2024 10:11 AM EDT Inhaled Oxygen Concentration - - Weight 80.5 kg (177 lb 7.5 oz) 08/19/2024 10:11 AM EDT Height 177.8 cm (5' 10 ) 08/19/2024 10:11 AM EDT Body Mass Index 25.46 08/19/2024 10:11 AM EDT documented in this encounter Miscellaneous Notes * Progress Notes - El Modi - 08/19/2024 10:30 AM EDT Patient returned to the [facility] at the [facility] for a follow-up appointment to evaluate his Panthera appliance for the management of moderate PETER. History of present illness: Darrion Shipley reported significant improvement in his symptoms since our last appointment. Reportedly, he uses the appliance every night for 8 hours and indicated using the AM plaster mechanic every morning for 5 minutes as recommended. He denied for snoring and denied gasping for air. Reportedly, his sleep quality improved significantly, and his nocturia not changed (from 1 to 1). His daytime sleepiness remained unchanged and the length of his afternoon naps has decreased. EES=3. Darrion Shipley denied changes in his bite and denied pain in jaw muscles and/or TMJ. Appointment Date ESS Night-time urination Initial eval 04/15/24 3 1 FU #1 06/24/24 3 0 FU #2 07/08/24 6 0 FU #3 07/29/2024 5 1 FU #4 08/19/2024 3 1 Medical history: No changes were reported since last visit. Examination: Visit Vitals BP (!) 158/100 Pulse 78 Temp 36.4 ??C (97.6 ??F) Ht 1.778 m (5' 10 ) Wt 80.5 kg (177 lb 7.5 oz) SpO2 96% BMI 25.46 kg/m?? No changes in occlusion noted since last appointment. Grade 1 mobility #24 and 25 [place] occlusal contact with max stock was noted between all teeth except teeth #6- 11 and their antagonist. No pain upon palpation. No noises were recorded. Max opening 50 mm. Vertical overbite 3 mm and horizontal overjet 4 mm. Procedure: Appliance had size 27 arms. It was advanced 1 mm per side for a total of 26 mm arms per patient request. It was tried for 10 minutes and patient indicated it felt comfortable with slight tightness inthe jaw muscles. Remaining protrusive movement 3 mm. Appointment Date Adjustment of appliance Total amount of protrusion Delivery 05/27/24 Arm #30 FU #1 06/24/24 Arm # 29 +1 mm FU #2 07/08/24 Arm #28 +1 mm FU #3 07/29/24 Arm #27 +1 mm FU #4 08/19/2024 Arm #26 +1 mm Assessment: Moderate obstructive sleep apnea managed by MAD pending results of second sleep study. Plan: Patient to continue wearing appliance nightly and recommended to use while taking nap. We will evaluate his symptoms in next visit and refer for the second sleep study Patient to return for follow-up appointment in 2 weeks. Cosigned by Jenifer Tejeda DDS at 08/20/2024 10:13 AM EDT Associated attestation - Jenifer Tejeda DDS - 08/20/2024 10:13 AM EDT I saw and evaluated the patient, I discussed the case with the public relations account supervisor and agree with the notes as documented below. documented in this encounter Plan of Treatment Upcoming Encounters Date Type Department Care Team (Late st Contact Info) Description 09/14/2024 11:00 AM EDT Office Visit [facility] Room [facility] [place] [address] Jenifer Tejeda DDS [address] [phone] [place] Berrios documented as of this encounter Visit Diagnoses Diagnosis Obstructive sleep apnea- Primary Obstructive sleep apnea (adult) (pediatric) documented in this encounter Additional Health Concerns Assessment Noted Time A Body Mass Index follow-up plan has been documented for the patient 08/20/2024 10:14 AM EDT documented as of this encounter Care Teams Corporate Bond Trader Relationship Specialty Start Date End Date Blu Estrada MD [address] [place] [phone] PCP - General 08/09/21 documented as of this encounter
--- OUTSIDE RECORDS SUMMARY | 2024-09-07 05:30 | XMS_ITS ---
Author Organization [facility] Address [address] [facility] [address] [place] [id number] Care Team Providers Care Land Resource Specialist Name Role Phone Maxi Estradaian Primary Care Provider Allergies No Known Allergies Results Component Value Reference Range Notes P-Comprehensive Metabolic Pa zafar (CMP) Reviewed date:09/09/2024 09:06:30 AM Interpretation:K+ 6.8, gluc 132 Performing Lab: Notes/Report: Test performed by [facility], [place] [address] [place] [address] , [address], [place] [address] Nicolas Skelton MD, Covered Buckle Assembler CLIA: [id number] Sodium 138 135-145 mmol/L Potassium 6.8 3.5-5.3 mmol/L ALERT VALUE Results were repeated and confirmed. No visual hemolysis present. Chloride 103 97-108 mmol/L CO2 23 22-32 mmol/L Glucose 132 65-99 mg/dL BUN 14 8-23 mg/dL Creatinine 0.97 0.70-1.30 mg/dL Calcium 9.3 8.6-10.4 mg/dL eGFR by Creatinine 85 >59 mL/min/1.73m2 Protein 6.8 6.0-8.3 g/dL Albumin 4.4 3.5-5.3 g/dL Alkaline Phosphatase 81 40-129 IU/L ALT (SGPT) 26 <5-55 IU/L AST (SGOT) 24 <5-46 IU/L Bilirubin, Total 0.4 <0.2-1.2 mg/dL A/G Ratio 1.8 1.1-2.5 P-Lipid Panel Reviewed date:09/09/2024 09:06:30 AM Interpretation:Normal Performing Lab: Notes/Report: Test performed by [facility], [place] [id number] [facility] [address], [place] [address] Nicolas Skelton MD, Covered Buckle Assembler CLIA: [id number] Cholesterol 189 <200 mg/dL Triglycerides 114 <150 mg/dL HDL Cholesterol 65 >39 mg/dL Cholesterol / HDL Ratio 2.91 0.00-4.99 Ratio Non-HDL Cholesterol 124 <130 mg/dL LDL Cholesterol (Calculation) 101 <130 mg/dL LDL Cholesterol Levels* Less than [...] Results: 91 Units: mg/dL % Change: - Test Date: 09/08/2024 LDL Results: 101 Units: mg/dL % Change: +10% P-PSA Reviewed date:09/09/2024 09:06:30 AM Interpretation:Normal Performing Lab: Notes/Report: Test performed by [facility] [address] , [place] [address] Nicolas Skelton MD, Covered Buckle Assembler CLIA: [id number] PSA 1.55 <4.00 ng/mL Please note this is an ultrasensitive PSA assay with a lower limit of detection of 0.014 ng/mL. This test is performed by the Bert ECLIA methodology. Values obtained with different assay methods or kits cannot be directly compared. P-TSH reflex to FT4 Reviewed date:09/09/2024 09:06:30 AM Interpretation:Normal Performing Lab: Notes/Report: Test performed by [facility] [address] , [place] [address] Nicolas Skelton MD, Covered Buckle Assembler CLIA: [id number] TSH reflex to FT4 1.28 0.43-5.25 mU/L P-Microalbumin/Creatinine, R andom Urine Sample Reviewed date:09/09/2024 09:06:30 AM Interpretation:Normal Performing Lab: Notes/Report: Test performed by [facility] [address] , [place] [address] Nicolas Skelton MD, Covered Buckle Assembler CLIA: [id number] Albumin/Creatinine Ratio, Urine 5 0-30 ug/mg Microalbumin, Urine, Random 0.5 Creatinine, Urine 92.1 P-Vitamin D 25-Hydroxy Reviewed date:09/09/2024 09:06:30 AM Interpretation:46.3 Performing Lab: Notes/Report: Test performed by [facility] [address] , [place] [address] Nicolas Skelton MD, Covered Buckle Assembler CLIA: [id number] Vitamin D 25-Hydroxy 46.3 30.0-100.0 ng/mL Interpretation of Vitamin D 25 OH: < 20 ng/mL - Deficiency 20 - 29 ng/mL - Insufficiency 30 - 100 ng/mL - Sufficiency > 100 ng/mL - Super-therapeutic- toxicity may occur above this level. Clinical correlation required. REASON FOR VISIT 6 months Medications Medication SIG (Take, Route, Frequency, Duration) Notes Start Date End Date Status Modafinil 200 MG 1 tablet in the morn ing Orally Once a day Active ReliOn Lancets Ultra-Thin 30G - as directed Active Modafinil 100 MG 1 tablet in the afte rnoon Orally Once a day Active CoQ-10 100 MG as directed Orally Active ReliOn Blood Glucose Test - as directed In Vitro Active Lisinopril 10 MG 1 tablet Orally Once a day for 90 days Active Meloxicam 15 MG 1 tablet Orally once daily for 90 days Active Primidone 250 MG 1 tablet Orally Two times a day for 90 days Active Terbinafine HCl 250 MG 1 tablet Orally O nce a day for 90 days 03/09/2024 Active Jardiance 25 MG 1 tablet Orally Once a day Active Propranolol HCl ER 160 MG 1 capsule Oral ly Once a day for 90 days Active Rosuvastatin Calcium 20 MG 1 tab(s) oral ly once a day (at bedtime) for 90 days Active Rybelsus 7 MG 1 tablet at least 30 minutes before first food, beverage or other oral medicine of the day Orally Once a day 09/05/2022 Active Sildenafil Citrate 20 MG 1 to 5 tab(s) o rally once daily as needed 08/07/2020 Active RELION GLUCOMETER 10/17/2016 A ctive Vitamin D3 125 MCG (5000 UT) 1 cap(s) orally once a day Active Problems Problem Type SNOMED Code ICD Code Onset Dates Problem Status W/U Status Risk Notes Problem [id number] PETER (obstructive sleep apnea) (G47.33) Active confirmed Vital Signs Blood pressure systolic 124 mm Hg 09/08/19 25 Blood pressure diastolic 70 mm Hg 025 Heart Rate 75 /min 09/07/2024 Height 69.50 in 09/07/2024 Weight 178.8 lbs 09/07/2024 BMI 26.02 kg/m2 09/07/2024 Encounters Encounter Location Date Provider Diagnosis [facility] [address] [place], [place] [id number] 09/07/2024 Blu P[place] Essential hypertensi on I10 ; Mixed hyperlipidemia E78.2 ; Hypertriglyceridemia E78.1 ; Vitamin D deficiency E55.9 ; Type 2 diabetes mellitus without complication, without long-term current use of insulin E11.9 ; Prostate cancer screening Z12.5 and PETER (obstructive sleep apnea) G47.33 Assessments Encounter Date Diagnosis (ICD Code) Assessment Notes Treatment Notes Treatment Clinical Notes Section Notes 09/07/2024 Essential hypertensi on (ICD-10 - I10) 09/07/2024 Mixed hyperlipidemia (ICD-10 - E78.2) 09/07/2024 Hypertriglyceridemia (ICD-10 - E78.1) 09/07/2024 Vitamin D deficiency (ICD-10 - E55.9) 09/07/2024 Type 2 diabetes angelito itus without complication, without long-term current use of insulin (ICD-10 - E11.9) 09/07/2024 Prostate cancer screening (ICD-10 - Z12.5) 09/07/2024 PETER (obstructive sle ep apnea) (ICD-10 - G47.33) Doing well with mandibular advancment device Plan Of Treatment Medication Medication Name Sig Start Date Stop Date Notes Lisinopril 10 MG 1 tablet Orally Once a day for 90 days Treatment Notes Assessment Notes PETER (obstructive sleep apnea) Doing well with mandibular advancment device Next Appt Details Follow Up: 6 Months, Reason: Provider Name:Blu Hernandez , 03/09/2025 10:15:00 AM, [address], [address], [place], [id number], Progress Notes * Darrion COWANDOB:[birth year] (68 yo M)Acc No.[id number]:09/07/2024 Progress Notes Patient: Darrion CONNOR Provider: Cody Estrada M.D. :1955 A ge:68 Y S ex:Male Date:09/07/2024 Address:[address] [place], [place] [id number] Subjective: * Chief Complaints: * 1 . 6 months. * HPI: C ardiology: 68 year old male presents with c/o Blood Pressure Elevated P t here for 6 mo f/u on hypertension. Pt states he is doing well and does not have any concerns.? c/o Hyperlipidemia P t is fasting today. E ndocrinology: c/o Recent Blood Sugars P t here to f/u on DM 2. Pt requesting lab results from today to be faxed to Dr. Theron Monahan in [place]. * ROS: D ERMATOLOGY: no R allan. n o H lilly. G ASTROENTEROLOGY: no N ausea. n o V omiting. U ROLOGY: no D ifficulty urinating. n o B lood in urine. * Medical History: T ype 2 Diabetes, followed by [facility], Allergic Rhinitis, Anxiety disorder, Father had prostate cancer in his 50's, sleep apnea, Dx: 2013, Tremor, Hypertension, Hyperlipidemia, Hypertriglyceridemia, Carpal tunnel syndrome, Diverticulosis, Basal cell carinoma, Squamous cell skin cancer. * Surgical History: V asectomy , Colonoscopy [...] Sexually active: yes. * Medications: T aking Jardiance 25 MG Tablet 1 tablet Orally Once a day , Taking Modafinil 200 MG Tablet 1 tablet in the morning Orally Once a day , Taking Modafinil 100 MG Tablet 1 tablet in the afternoon Orally Once a day , Taking ReliOn Lancets Ultra-Thin [...] capsule Orally Once a day , Taking Primidone 250 MG Tablet 1 tablet Orally Two times a day , Taking Meloxicam 15 MG Tablet 1 tablet Orally once daily , Taking Terbinafine HCl 250 MG Tablet 1 tablet Orally Once a day , Taking Lisinopril 10 MG Tablet 1 tablet Orally Once a day , Discontinued Synjardy XR 12.5-1000 MG Tablet Extended Release 24 Hour 1 tab Orally Once a day , Medication List reviewed and reconciled with the patient * Allergies: N .K.D.A. Objective: * Vitals: W t: 178.8, Temp: 97.8, BP: 124/70, HR: 75, Nurse: lanie, Ht: 69.50, BMI:26.02. * Examination: E ndocrinology: General Appearance: N AD. HEENT: u nremarkable. Heart: R SR. Lungs: c lear to auscultation. Extremities: n o leg edema. Assessment: * Assessment: 1. E ssential hypertension - I10 (Primary) 2 . M ixed hyperlipidemia - E78.2 3 . H ypertriglyceridemia - E78.1 4 . V itamin D deficiency - E55.9 5 . T ype 2 diabetes mellitus without complication, without long-term current use of insulin - E11.9 6 . P rostate cancer screening - Z12.5 7 . O SA (obstructive sleep apnea) - G47.33 Plan: * Treatment: Value Reference Range A /G Ratio 1.8 1.1-2.5 - * A lbumin 4.4 3.5-5.3 - g/dL * A lkaline Phosphatase 81 40-129 - IU/L * A LT (SGPT) 26 <5-55 - IU/L * A ST (SGOT) 24 <5-46 - IU/L * B ilirubin, Total 0.4 <0.2-1.2 - mg/dL * B UN 14 8-23 - mg/dL * C alcium 9.3 8.6-10.4 - mg/dL * C hloride 103 97-108 - mmol/L * C O2 23 22-32 - mmol/L * C reatinine 0.97 0.70-1.30 - mg/dL * G lucose 132 H 65-99 - mg/dL * P otassium 6.8 HH 3.5-5.3 - mmol/L * S odium 138 135-145 - mmol/L * P rotein 6.8 6.0-8.3 - g/dL * e GFR by Creatinine 85 >59 - mL/min/1.73m2 * Shabana Martínez 09/09/2024 09:0 6:22 AM EDT > See phone encounter ?LAB: P-Microalbumin/Creatinine, Random Urine Sample (Collection Date & Time - 09/08/2024 09:14 AM)?Normal* Value Reference Range A lbumin/Creatinine Ratio, Urine 5 0-30 - ug /mg * C reatinine, Urine 92.1 - mg/dL * M icroalbumin, Urine, Random 0.5 - mg/dL * Shabana Martínez 09/09/2024 09:0 6:22 AM EDT > See phone encounter 2.?Mixed hyperlipidemia?LAB: P-Comprehensive Metabolic Panel (CMP) (Collection Date & Time - 09/08/2024 09:14 AM)?K+ 6.8, gluc 132* Value Reference Range A /G Ratio 1.8 1.1-2.5 - * A lbumin 4.4 3.5-5.3 - g/dL * A lkaline Phosphatase 81 40-129 - IU/L * A LT (SGPT) 26 <5-55 - IU/L * A ST (SGOT) 24 <5-46 - IU/L * B ilirubin, Total 0.4 <0.2-1.2 - mg/dL * B UN 14 8-23 - mg/dL * C alcium 9.3 8.6-10.4 - mg/dL * C hloride 103 97-108 - mmol/L * C O2 23 22-32 - mmol/L * C reatinine 0.97 0.70-1.30 - mg/dL * G lucose 132 H 65-99 - mg/dL * P otassium 6.8 HH 3.5-5.3 - mmol/L * S odium 138 135-145 - mmol/L * P rotein 6.8 6.0-8.3 - g/dL * e GFR by Creatinine 85 >59 - mL/min/1.73m2 * Shabana Martínez 09/09/2024 09:0 6:22 AM EDT > See phone encounter ?LAB: P-Lipid Panel (Collection Date & Time - 09/08/2024 09:14 AM)?Normal* Value Reference Range C holesterol / HDL Ratio 2.91 0.00-4.99 - Ratio * C holesterol 189 <200 - mg/dL * H DL Cholesterol 65 >39 - mg/dL * L DL Cholesterol (Calculation) 101 <130 - mg/d L * L DL/HDL Ratio 1.6 <3.3 - Ratio * N on-HDL Cholesterol 124 <130 - mg/dL * T riglycerides 114 <150 - mg/dL * Shabana Martínez 09/09/2024 09:0 6:22 AM EDT > See phone encounter ?LAB: P-TSH reflex to FT4 (Collection Date & Time - 09/08/2024 09:14 AM)? Normal* Value Reference Range T SH reflex to FT4 1.28 0.43-5.25 - mU/L * Shabana Martínez 09/09/2024 09:0 6:22 AM EDT > See phone encounter 3.?Vitamin D deficiency?LAB: P-Vitamin D 25-Hydroxy (Collection Date & Time - 09/08/2024 09:14 AM)? 46.3* Value Reference Range V itamin D 25-Hydroxy 46.3 30.0-100.0 - ng/mL * Shabana Martínez 09/09/2024 09:0 6:22 AM EDT > See phone encounter 4.?Type 2 diabetes mellitus without complication, without long-term current use of insulin?LAB: P-Comprehensive Metabolic Panel (CMP) (Collection Date & Time - 09/08/2024 09:14 AM)?K+ 6.8, gluc 132* Value Reference Range A /G Ratio 1.8 1.1-2.5 - * A lbumin 4.4 3.5-5.3 - g/dL * A lkaline Phosphatase 81 40-129 - IU/L * A LT (SGPT) 26 <5-55 - IU/L * A ST (SGOT) 24 <5-46 - IU/L * B ilirubin, Total 0.4 <0.2-1.2 - mg/dL * B UN 14 8-23 - mg/dL * C alcium 9.3 8.6-10.4 - mg/dL * C hloride 103 97-108 - mmol/L * C O2 23 22-32 - mmol/L * C reatinine 0.97 0.70-1.30 - mg/dL * G lucose 132 H 65-99 - mg/dL * P otassium 6.8 HH 3.5-5.3 - mmol/L * S odium 138 135-145 - mmol/L * P rotein 6.8 6.0-8.3 - g/dL * e GFR by Creatinine 85 >59 - mL/min/1.73m2 * Shabana Martínez 09/09/2024 09:0 6:22 AM EDT > See phone encounter 5.?Prostate cancer screening?LAB: P-PSA (Collection Date & Time - 09/08/2024 09:14 AM)?Normal* Value Reference Range P SA 1.55 <4.00 - ng/mL * Shabana Martínez 09/09/2024 09:0 6:22 AM EDT > See phone encounter 6.?PETER (obstructive sleep apnea)? Notes: Doing well with mandibular advancment device?? * Procedure Codes: G 2211 Complex e/m visit add on * Follow Up: 6 Months * Billing Information: * Visit Code: 64272 Office Visit, Est Pt., Level 4. * Procedure Codes: G2211 Complex e/m visit add on. * Electronic signature of Cyn Estrada MD on 09/09/2024 at 11:15 AM EDT Sign off status: Pending * Provider: Cody Estrada M.D. Date: 0 09/07/2024 Generated for Gregoryi ng/Faxing/eTransmitting on: 0 09/09/2024 11:15 AM EDT History and Physical Notes * HPI (History of Present Illness) Category Sub-Category Detail Notes Category Not es Endocrinology Recent Blood Sugars Pt here to f /u on DM 2. Pt requesting lab results from today to be faxed to Dr. Theron Monahan in [place] [facility] Blood Pressure Elevated Pt here for 6 mo f/u on hypertension. Pt states he is doing well and does not have any concerns Hyperlipidemia Pt is fasting today Examination Category Sub-Category Detail Notes Category Not es Endocrinology HEENT: unremarkable Heart: RSR Lungs: clear to auscultatio n Extremities: no leg edema General Appearance: NAD
--- OUTSIDE RECORDS SUMMARY | 2024-09-09 11:16 | XMS_ITS | Encounter Summary ---
Author Organization [facility] Address [address] [place] [address] Care Team Providers Care Stockroom Selector Name Role Phone Blu Estrada MD Primary Care Provider [phone] Encounter Details Date Type Department Care Team (Late st Contact Info) Description 09/08/2024 Telephone [facility] Room [address] [address] Gaby Pennington [facility] [place] [address] Social History Tobacco Use Types Packs/Day Years Used Date Smoking Tobacco: Never Assessed Sex and Gender Information Value Date Recorded Sex Assigned at Not on file Legal Sex Male 8:52 PM EDT Gender Identity Not on file Sexual Orientation Not on file documented as of this encounter Miscellaneous Notes * Telephone Encounter - Gaby Pennington - 09/08/2024 10:37 AM EDT Phone call complete documented in this encounter Plan of Treatment Upcoming Encounters Date Type Department Care Team (Late st Contact Info) Description 09/14/2024 11:00 AM EDT Office Visit [facility] Room [address] [place] [address] Jenifer Tejeda, DDS [address] [address] Melani Berrios documented as of this encounter Visit Diagnoses Not on filedocumented in this encounter Additional Health Concerns Assessment Noted Time A Body Mass Index follow-up plan has been documented for the patient 08/20/2024 10:14 AM EDT documented as of this encounter Care Teams Stockroom Selector Relationship Specialty Start Date End Date Blu Estrada MD [address] [place] [address] PCP - General 08/09/21 documented as of this encounter
--- OUTSIDE RECORDS SUMMARY | 2024-09-09 11:16 | XMS_ITS | Encounter Summary ---
Author Organization [facility] Address [address] [place] [address] Care Team Providers Care Parts Cataloguer Name Role Phone Blu Estrada MD Primary Care Provider [phone] Encounter Details Date Type Department Care Team (Latest Contact Info) Description 08/12/2024 Travel Social History Tobacco Use Types Packs/Day Years Used Date Smoking Tobacco: Never Assessed Sex and Gender Information Value Date Recorded Sex Assigned at Not on file Legal Sex Male 8:52 PM EDT Gender Identity Not on file Sexual Orientation Not on file documented as of this encounter Plan of Treatment Upcoming Encounters Date Type Department Care Team (Late st Contact Info) Description 09/14/2024 11:00 AM EDT Office Visit [facility] Room [address] [place] [address] Jenifer Tejeda, DDS [address] [address] Melani Berrios documented as of this encounter Visit Diagnoses Not on filedocumented in this encounter Additional Health Concerns Assessment Noted Time A Body Mass Index follow-up plan has been documented for the patient 08/02/2024 3:39 PM EDT documented as of this encounter Care Teams Parts Cataloguer Relationship Specialty Start Date End Date Blu Estrada MD [address] [place] [address] PCP - General 08/09/21 documented as of this encounter
--- OUTSIDE RECORDS SUMMARY | 2024-09-09 11:16 | XMS_ITS | Encounter Summary ---
Author Organization [facility] Address [address] [place] [address] Care Team Providers Care Director Water And Waste Services Name Role Phone Blu Estrada MD Primary Care Provider [phone] Encounter Details Date Type Department Care Team (Latest Contact Info) Description 09/07/2024 Travel Social History Tobacco Use Types Packs/Day [...] Description 09/14/2024 11:00 AM EDT Office Visit [facility] Room [address] [place] [address] Jenifer Tejeda, DDS [address] [address] Melani Berrios documented as of this encounter Visit Diagnoses Not on filedocumented in this encounter Additional Health Concerns Assessment Noted Time A Body Mass Index follow-up plan has been documented for the patient 08/20/2024 10:14 AM EDT documented as of this encounter Care Teams Director Water And Waste Services Relationship Specialty Start Date End Date Blu Estrada MD [address] [place] [address] PCP - General 08/09/21 documented as of this encounter
--- OUTSIDE RECORDS SUMMARY | 2024-09-09 11:16 | XMS_ITS | Encounter Summary ---
Author Organization [facility] Address [address] [place] [address] Care Team Providers Care Polisher And Buffer Name Role Phone Blu Estrada MD Primary Care Provider [phone] Encounter Details Date Type Department Care Team (Latest Contact Info) Description 07/29/2024 Travel Social History Tobacco Use Types Packs/Day [...] Description 09/14/2024 11:00 AM EDT Office Visit [facility] Room [address] [place] [address] Jenifer Tejeda, DDS [address] [address] Melani Berrios documented as of this encounter Visit Diagnoses Not on filedocumented in this encounter Additional Health Concerns Assessment Noted Time A Body Mass Index follow-up plan has been documented for the patient 08/02/2024 3:39 PM EDT documented as of this encounter Care Teams Polisher And Buffer Relationship Specialty Start Date End Date Blu Estrada MD [address] [place] [address] PCP - General 08/09/21 documented as of this encounter
--- OUTSIDE RECORDS SUMMARY | 2024-09-09 11:16 | XMS_ITS | Patient Health Record ---
Author Organization [facility] Address [address] [facility] [address] [facility] [address] [place] Guadalupe [id number] Care Team Providers Care Organ Builder Name Role Phone Maxi Estradaian Primary Care Provider [phone] Allergies No Known Allergies Results Component Value Reference Range Notes P-Comprehensive Metabolic Pa zafar (CMP) Reviewed date:09/09/2024 09:06:30 AM Interpretation:K+ 6.8, gluc 132 Performing Lab: Notes/Report: Test performed by [facility] [address] [place] [address] , [address], [place] [address] Nicolas Skelton MD, Roll Up Helper CLIA: [id number] Sodium 138 135-145 mmol/L Potassium 6.8 3.5-5.3 [...] Interpretation:Normal Performing Lab: Notes/Report: Test performed by [facility] [address] [facility] , [address], [place] [address] Nicolas Skelton MD, Roll Up Helper MIAH: [id number] Cholesterol 189 <200 mg/dL Triglycerides 114 <150 [...] Interpretation:Normal Performing Lab: Notes/Report: Test performed by [facility] , [place] [address] Nicolas Skelton MD, Roll Up Helper CLIA: [id number] PSA 1.55 <4.00 ng/mL Please note this is an ultrasensitive PSA assay with a lower limit of detection of 0.014 ng/mL. This test is performed by the [employer] ECLIA methodology. Values obtained with different assay methods or kits cannot be directly compared. P-TSH reflex to FT4 Reviewed date:09/09/2024 09:06:30 AM Interpretation:Normal Performing Lab: Notes/Report: Test performed by [facility] , [place] [address] Nicolas Skelton MD, Roll Up Helper CLIA: [id number] TSH reflex to FT4 1.28 0.43-5.25 mU/L P-Microalbumin/Creatinine, R andom Urine Sample Reviewed date:09/09/2024 09:06:30 AM Interpretation:Normal Performing Lab: Notes/Report: Test performed by [facility] , [address], [place] [address] Nicolas Skelton MD, Roll Up Helper CLIA: [id number] Albumin/Creatinine Ratio, Urine 5 0-30 ug/mg Microalbumin, Urine, Random 0.5 Creatinine, Urine 92.1 P-Vitamin D 25-Hydroxy Reviewed date:09/09/2024 09:06:30 AM Interpretation:46.3 Performing Lab: Notes/Report: Test performed by [facility] , [address], [place] [address] Nicolas Skelton MD, Roll Up Helper CLIA: [id number] Vitamin D 25-Hydroxy 46.3 30.0-100.0 ng/mL Interpretation of Vitamin D 25 OH: < 20 ng/mL - Deficiency 20 - 29 ng/mL - Insufficiency 30 - 100 ng/mL - Sufficiency > 100 ng/mL - Super-therapeutic- toxicity may occur above this level. Clinical correlation required. CBC Fingerstick (in house) Reviewed date:09/22/2023 04:13:39 [...] - 38 plat 251 100 - 400 Reason For Referral No Information Medications Medication SIG (Take, Route, Frequency, Duration) Notes Start Date End Date Status Modafinil 200 MG 1 tablet in the morn ing Orally Once a day Active RELION GLUCOMETER 10/17/2016 A ctive Vitamin D3 125 MCG (5000 UT) 1 cap(s) orally once a day Active CoQ-10 100 MG as directed Orally Active ReliOn Blood Glucose Test - as directed In Vitro Active Terbinafine HCl 250 MG 1 tablet Orally O nce a day for 90 days 03/09/2024 Active Jardiance 25 MG 1 tablet Orally Once a day Active Rosuvastatin Calcium 20 MG 1 tab(s) oral ly once a day (at bedtime) for 90 days Active Rybelsus 7 MG 1 tablet at least 30 minutes before first food, beverage or other oral medicine of the day Orally Once a day 09/05/2022 Active Sildenafil Citrate 20 MG 1 to 5 tab(s) o rally once daily as needed 08/07/2020 Active Lisinopril 10 MG 1 tablet Orally Once a day for 90 days Active [facility] Lancets Ultra-Thin 30G - as directed Active Meloxicam 15 MG 1 tablet Orally once daily for 90 days Active Modafinil 100 MG 1 tablet in the afte rnoon Orally Once a day Active Primidone 250 MG 1 tablet Orally Two times a day for 90 days Active Propranolol HCl ER 160 MG 1 capsule Oral ly Once a day for 90 days Active Immunizations Vaccine Route Administration Date Status Comme nts COVID 19 David Unknown 05/31/2020 Administered COVID 19 Pfizer Unknown 02/22/2021 Administered Flublok IM Intramuscular 02/27/2018 Administered Fluzone High Dose (65yr and older) IM Intramuscular 02/21/2023 Administered Fluzone High Dose (65yr and older) IM Intramuscular 03/09/2024 Administered Fluzone Quad (6months&older) IM Intramuscular 02/04/2017 Administered Fluzone Quad (6months&older) IM Intramuscular 12/07/2018 Administered Fluzone Quad (6months&older) IM Intramuscular 02/05/2021 Administered PNEUMOVAX 23 VACCINE IM Intramuscular 03/09/2024 Administe red Prevnar (PCV20) IM Intramuscular 02/21/2023 Administered Problems Problem Type SNOMED Code ICD Code Onset Dates Problem Status W/U Status Risk Notes Problem 14829807 Vitamin D defici ency (E55.9) Active confirmed Problem 01793421 Essential hypert ension (I10) Active confirmed Problem 297711101 Hypertriglycerid emia (E78.1) Active confirmed Problem 38762767 Tremor (R25.1) Active confirmed Problem 849246372 Impaired fasting glucose (R73.01) Active confirmed Problem 83073944 Generalized anxi ety disorder (F41.1) Active confirmed Problem 578416189 Mixed hyperlipid emia (E78.2) Active confirmed Problem 836832669 Essential tremor (G25.0) Active confirmed Problem 036692320 Erectile dysfunc tion, unspecified erectile dysfunction type (N52.9) Active confirmed Problem 62078449 PETER (obstructive sleep apnea) (G47.33) Active confirmed Problem 12943263 Carpal tunnel sy ndrome of left wrist (G56.02) Active confirmed Problem 870332449 Type 2 diabetes mellitus without complication, without long-term current use of insulin (E11.9) Active confirmed Problem 15693740 Rhinitis, unspec ified type (J31.0) Active confirmed Problem 121099942 Pure hypercholesterolemia (E78.00) Active confirmed Problem 610097339 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) Active confirmed Vital Signs Heart Rate 75 /min 09/07/2024 Blood pressure diastolic 70 mm Hg 09/07/2024 Height 69.50 in 09/07/2024 Blood pressure systolic 124 mm Hg 09/07/2024 Weight 178.8 lbs 09/07/2024 BMI 26.02 kg/m2 09/07/2024 Encounters Encounter Location Date Provider Diagnosis [facility] [address] [place] [id number] 09/22/2023 [facility] [address] [place] [id number] 03/09/2024 Blu Leburn Essential hypertensi on I10 ; Vitamin D deficiency E55.9 ; Mixed hyperlipidemia E78.2 ; Hypertriglyceridemia E78.1 ; Essential tremor G25.0 and Encounter for immunization Z23 [facility] [address] [facility] [address] [place] [id number] 09/07/2024 Blu Leburn Essential hypertensi on I10 ; Mixed hyperlipidemia E78.2 ; Hypertriglyceridemia E78.1 ; Vitamin D deficiency E55.9 ; Type 2 diabetes mellitus without complication, without long-term current use of insulin E11.9 ; Prostate cancer screening Z12.5 and PETER (obstructive sleep apnea) G47.33 [facility] [address] [place] [id number] 09/09/2024 Blu Leburn Abnormal finding of blood chemistry, unspecified R79.9 Assessments Encounter Date Diagnosis (ICD Code) Assessment Notes Treatment Notes Treatment Clinical Notes Section Notes 09/22/2023 Acute URI (ICD-10 - J06.9) 03/09/2024 Vitamin D deficiency (ICD-10 - E55.9) 03/09/2024 Essential hypertensi on (ICD-10 - I10) 09/07/2024 Essential hypertensi on (ICD-10 - I10) 09/07/2024 Mixed hyperlipidemia (ICD-10 - E78.2) 09/09/2024 Abnormal finding of blood chemistry, unspecified (ICD-10 - R79.9) 09/07/2024 Hypertriglyceridemia (ICD-10 - E78.1) 03/09/2024 Mixed hyperlipidemia (ICD-10 - E78.2) 03/09/2024 Hypertriglyceridemia (ICD-10 - E78.1) 09/07/2024 Vitamin D deficiency (ICD-10 - E55.9) 09/07/2024 Type 2 diabetes angelito itus without complication, without long-term current use of insulin (ICD-10 - E11.9) 03/09/2024 Essential tremor (IC D-10 - G25.0) 03/09/2024 Encounter for immunization (ICD-10 - Z23) 09/07/2024 Prostate cancer screening (ICD-10 - Z12.5) 09/07/2024 PETER (obstructive sle ep apnea) (ICD-10 - G47.33) Doing well with mandibular advancment device Plan Of Treatment Pending Test Test Name Order Date H-Potassium 09/09/2024 Next Appt Details Provider Name:Blu Hernandez ry, 03/09/2025 10:15:00 AM, [address], [address], [place], [place], [id number], Insurance Providers Payer Name Payer Address Payer Phone Subscriber Number Group Number Insured Name Patient Relationship to Insured Coverage Start Date Coverage End Date MEDICARE PART B [address] [address] [place] L[place] [address] [id number] Darrion Shipley Self - patient is the insured [employer] [address] [place] [address] [id number] Darrion Shipley Self - patient is the insured Medications Administered Medication Instructions Date of Administration Dosage Notes Dexamethasone 12/04/2015 1 mL Dexamethasone 12/25/2020 1 mL Medical (General) History Medical History History ICD Code Type 2 Diabetes, followed by Endo Allergic Rhinitis Anxiety disorder Father had prostate cancer in his 50's sleep apnea, Dx: 2013 Tremor Hypertension hyperlipidemia hypertriglyceridemia carpal tunnel syndrome diverticulosis Basal cell carinoma Squamous cell skin cancer Surgical History Surgery Date(Month/Year) Vasectomy Colonoscopy 2008 Colonoscopy 2020 LT Carpal Tunnel Release 2021 LT Ulnar Nerve Release 2021
--- OUTSIDE RECORDS SUMMARY | 2024-09-09 11:16 | XMS_ITS | Encounter Summary ---
Author Organization [facility] Address [address] [place] [address] Care Team Providers Care Pre Owned Sales Manager Name Role Phone Blu Estrada MD Primary Care Provider [phone] Encounter Details Date Type Department Care Team (Late st Contact Info) Description 09/08/2024 Telephone [facility] Room [facility] [address] [place] [phone] Clary Valente Social History Tobacco Use Types Packs/Day Years [...] Description 09/14/2024 11:00 AM EDT Office Visit [facility] Room [address] [place] [address] Jenifer Tejeda, DDS [address] [address] Melani Berrios documented as of this encounter Visit Diagnoses Not on filedocumented in this encounter Additional Health Concerns Assessment Noted Time A Body Mass Index follow-up plan has been documented for the patient 08/20/2024 10:14 AM EDT documented as of this encounter Care Teams Pre Owned Sales Manager Relationship Specialty Start Date End Date Blu Estrada MD [address] [facility] [address] [place] [id number] PCP - General 08/09/21 documented as of this encounter
--- OUTSIDE RECORDS SUMMARY | 2024-09-09 11:16 | XMS_ITS | Encounter Summary ---
Author Organization Healthcare Address [address] [id number] Care Team Providers Care Wallpaper Scraper Name Role Phone Blu Estrada MD Primary Care Provider [phone] Reason for Referral * Consultation (Routine) - Closed Specialty Diagnoses / Procedures Referred By Anna layne Referred To Contact Dentist / Pain Medicine Diagnoses Obstructive sleep apnea Mariaa Macdonald MD [address] [place] [address] Phone: tel: fax: Jenifer Tejeda, DDS [address] [facility] [address] [place] [address] Phone: tel: fax: Referral ID Status Reason Start Date Expiration Date Visits Re quested Visits Authorized [id number] Closed 01/12/2024 07/13/2025 1 1 Encounter Details Date Type Department Care Team (Late st Contact Info) Description 01/12/2024 Community [facility] [address] [place] [address] Mariaa Macdonald MD [address] [facility] [address] [place] [address] Obstructive sleep apnea (Primary Dx) Social History [...] Description 09/14/2024 11:00 AM EDT Office Visit [facility] [address] [place] [address] Jenifer Tejeda, DDS [address] [place] [phone] Melani Berrios Scheduled Referrals Name Type Priority Associated Diagnoses Order Schedule Ambulatory Referral to Orofacial Pain Outpatient Referral Routine Obstructive sleep apnea Expected: 01/12/2024 (Approximate), Expires: 07/12/2025 documented as of this encounter Visit Diagnoses Diagnosis Obstructive sleep apnea- Primary Obstructive sleep apnea (adult) (pediatric) documented in this encounter Care Teams Wallpaper Scraper Relationship Specialty Start Date End Date Blu Estrada MD [address] [facility] [address] [place] [address] PCP - General 08/09/21 documented as of this encounter
--- OUTSIDE RECORDS SUMMARY | 2024-09-09 11:16 | XMS_ITS | Encounter Summary ---
Author Organization [facility] Address [address] [place] [address] Care Team Providers Care Slot Editor Name Role Phone Blu Estrada MD Primary Care Provider [phone] Encounter Details Date Type Department Care Team (Latest Contact Info) Description 08/19/2024 Travel Social History Tobacco Use Types Packs/Day [...] Description 09/14/2024 11:00 AM EDT Office Visit [facility] [address] [place] [address] Jenifer Tejeda, DDS [address] [address] Melani Berrios documented as of this encounter Visit Diagnoses Not on filedocumented in this encounter Additional Health Concerns Assessment Noted Time A Body Mass Index follow-up plan has been documented for the patient 08/20/2024 10:14 AM EDT documented as of this encounter Care Teams Slot Editor Relationship Specialty Start Date End Date Blu Estrada MD [address] [place] [address] PCP - General 08/09/21 documented as of this encounter
--- OUTSIDE RECORDS SUMMARY | 2024-09-09 11:16 | XMS_ITS | Encounter Summary ---
Author Organization [facility] Address [address] [place] [address] Care Team Providers Care Finisher Denture Name Role Phone Blu Estrada MD Primary Care Provider [phone] Encounter Details Date Type Department Care Team (Latest Contact Info) Description 07/22/2024 Travel Social History Tobacco Use Types Packs/Day [...] 09/14/2024 11:00 AM EDT Office [facility] [address] [place] [address] Jenifer Tejeda, DDS [address] [address] Melani Berrios documented as of this encounter Visit Diagnoses Not on filedocumented in this encounter Additional Health Concerns Assessment Noted Time A Body Mass Index follow-up plan has been documented for the patient 07/12/2024 10:51 PM EDT documented as of this encounter Care Teams Finisher Denture Relationship Specialty Start Date End Date Blu Estrada MD [address] [place] [address] PCP - General 08/09/21 documented as of this encounter
--- OUTSIDE RECORDS SUMMARY | 2024-09-09 11:16 | XMS_ITS | Clinical Summary ---
Author Organization [facility] Address [address] [place] [address] Care Team Providers Care Home Hospice Aide Name Role Phone Blu Estrada MD Primary Care Provider [phone] Allergies No known active allergies Medications cholecalciferol (Vitamin D-3) 125 MCG (5000 UT) capsule Take 1 capsule (5,000 Units) by mouth 1 (one) time each day. Active Synjardy XR 12.5-1000 MG 24 hr tablet Take 2 tablets by mouth 1 (one) time each day. 02/12/2024 Active levoFLOXacin (Levaquin) 500 MG tablet take 1 tablet by mouth once daily for 7 days 07/08/2023 Active lisinopril 10 MG tablet Take 1 tablet (10 mg) by mouth 1 (one) time each day. 04/12/2014 Active meloxicam (Mobic) 15 MG tablet 04/12/2019 Active modafinil (Provigil) 100 MG tablet Take 1 tablet (100 mg) by mouth 2 (two) times a day. 01/05/2024 Active Rybelsus 7 MG tablet Take 7 mg by mouth 1 (one) time each day. 04/12/2023 Active propranolol LA (Inderal LA) 160 MG 24 hr capsule Take 1 capsule (160 mg) by mouth 1 (one) time each day. 02/15/2024 Active Encounters Date Type Department Care Team Description 09/08/2024 Telephone [facility] [address] [place] [address] Clary Valente 09/08/2024 Telephone [facility] [address] [place] [address] James Penningtonpa 09/07/2024 Travel 08/19/2024 10:30 AM EDT Office Visit [facility] [address] [place] [address] Jenifer Tejeda, [place] Obstructive sleep apnea (Primary Dx) 08/19/2024 Travel 08/12/2024 Travel 07/29/2024 10:00 AM EDT Office Visit [facility] [address] [place] [address] Jenifer Tejeda, Traci Harris Obstructive sleep apnea (Primary Dx) 07/29/2024 Travel 07/22/2024 Travel 07/08/2024 10:45 AM EDT Office Visit [facility] [address] [place] [address] Jenifer Tejeda DDS Kimble, Catherine D Obstructive sleep apnea (Primary Dx) 07/08/2024 Travel 07/07/2024 Travel 06/24/2024 11:15 AM EDT Office Visit [facility] [address] [place] [address] Jenifer Tejeda DDS Kimble, Catherine D Obstructive sleep apnea (Primary Dx) 06/24/2024 Travel 06/18/2024 Travel from Last 3 Months Family History Medical History Relation Name Comments Cancer Father Jose Guadalupe Stringertox Sr Diabetes Mother Jenifer Stringertox Relation Name Status Comments Father Jose Guadalupe Stringertox Sr Alive Mother Jenifer Stringertox Alive Social History Tobacco Use Types Packs/Day Years Used Date Smoking Tobacco: Never Assessed Sex and Gender Information Value Date Recorded Sex Assigned at Not on file Legal Sex Male 8:52 PM EDT Gender Identity Not on file Sexual Orientation Not on file Last Filed Vital Signs Vital Sign Reading [...] Mass Index 25.46 08/19/2024 10:11 AM EDT Plan of Treatment Upcoming Encounters Date Type Department Care Team (Late st Contact Info) Description 09/14/2024 11:00 AM EDT [facility] [address] [place] [address] Jenifer Tejeda, S [address] [address] Melani Berrios Health Maintenance Due Date Last Done Comments Dental Oral Exam 1955 Dental Prophylaxis 1955 Dental X-Ray: Bitewings 1955 Dental X-Ray: Full Mouth 1955 [facility]-Depression Screening 1956 [facility]-Hepatitis C Screening 1956 [facility]-Medicare Annual Wellness (AWV) 1955 [facility]-Infant/Child/Adol SDOH Screenings 1956 [facility]- SDOH Screenings 1974 [facility]-Adult SDOH Screenings 1974 [facility]-DTaP,Tdap,and Td Vaccines (1 - Tdap) 10/11/1975 CT Colonography 2001 Colonoscopy 2001 FIT-DNA 2001 FIT 2001 FOBT 2001 Sigmoidoscopy 2001 [facility]-Colorectal Cancer Screening 2001 [facility]-Zoster Vaccines (1 of 2) 2006 IGT-PDLYO-02 Vaccine (3 - season) 2023 02/22/2021, 05/31/2020 [facility]-Influenza Vaccine (Season Ended) 2024 02/05/2021, 12/07/2018, 02/27/2018, Additional history exists [facility]-RSV Vaccine: 60+ Years or (1 - 1-dose 75+ series) 10/11/2031 [facility]-Pneumococcal Vaccine: 50+ Years Completed 03/09/2024, 02/21/2023 [facility]-Obesity Intervention Completed 025, 07/29/2024, 07/08/2024, Additional history exists HPV Vaccines Aged Out No longer eligi ble based on patient's age to complete this topic [facility]-HIB Vaccines Aged Out No longer e ligible based on patient's age to complete this topic [facility]-Hepatitis A Vaccines Aged Out No longer eligible based on patient's age to complete this topic [facility]-IPV Vaccines Aged Out No longer e ligible based on patient's age to complete this topic [facility]-Rotavirus Vaccines Aged Out No lo nger eligible based on patient's age to complete this topic Insurance [facility] [facility] [id number] [place] MEDICARE Care Teams Home Hospice Aide Relationship Specialty Start Date End Date Blu Estrada MD [address] [place] [address] PCP - General 08/09/21
[2024-09-09 13:16] LABS: Potassium 4.2 mmoL/L (3.5-5.1)
== END 2024-09-09 23:59 | disposition home or self-care (01) ==
PROVIDERS: PCP Family Medicine; Visit Provider Family Medicine
DX: R79.9 Abnormal finding of blood chemistry, unspecified (principal)
CPT/HCPCS: 36415; 84132

== ENCOUNTER → 2024-11-01 14:01 | Outpatient (CLI) | payer MEDICARE, BC, SELFPAY ==
--- OUTSIDE RECORDS SUMMARY | 2024-03-09 05:00 | XMS_ITS ---
[facility] Address [address] [place] [id number] Care Team Providers Care Asset Protection Manager Name Role Phone Blu Estrada Primary Care [...] 03/09/2024 Encounters Encounter Location Date Provider Diagnosis [facility] [address] [place] [id number] 03/09/2024 Blu Estrada Essential hypertensi on I10 [...] Follow Up: 6 Months, Reason: Provider Name:Blu Hernadnez ry, 03/09/2025 10:15:00 AM, [address] [facility], [address], [place], [phone], Progress Notes * Darrion COWAN:[birth year] (69 yo M)Acc No.[id number]:03/09/2024 Progress Notes Patient: Darrion CONNOR Provider: Cody Estrada M.D. :1955 A ge:68 Y S ex:Male Date:03/09/2024 Address:[address] [place] [address] [place] [phone] Subjective: * Chief Complaints: * 1 . [...] * Images: Billing Information: * Visit Code: 45521 Office Visit, Est Pt., Level 4. * Procedure Codes: G2211 Complex e/m visit add on. * Electronic signature of Cyn Estrada MD on 11/01/2024 at 02:17 PM EDT Sign off status: Pending * Provider: Cody Estrada M.D. Date: 05/10/2023 Generated for Mayco almaraz/Barbara/Jayitting on: 0 11/01/2024 02:17 PM EDT History and Physical Notes * [...]
--- OUTSIDE RECORDS SUMMARY | 2024-08-06 09:15 | XMS_ITS | Encounter Summary ---
Author Organization [facility] Address [address] [place] [address] Care Team Providers Care Glassware Verifier Name Role Phone Blu Estrada MD Primary Care Provider + [phone] Reason for Visit * Reason Comments Diabetes Encounter Details Date Type Department Care Team (Late st Contact Info) Description 08/06/2024 9:15 AM EDT Office Visit [facility] [address] [facility] [place] [address] [place] [phone] Thao Crump MD [address] [facility] [address] [place] [phone] Type 2 diabetes mellitus with hyperglycemia, without long-term current use of insulin (Primary Dx); Hyperlipidemia, unspecified hyperlipidemia type Social History Tobacco Use Types Packs/Day Years Used Date Smoking Tobacco: Never Smokeless Tobacco: Never Tobacco Cessation:Counseling Given: Not Answered Alcohol Use Standard Drinks/Week Comments Not Currently 0 (1 standard drink = 0.6 oz pur e alcohol) occasionally Sex and Gender Information Value Date Recorded Sex Assigned at Male 07/30/2024 7:28 AM EDT Legal Sex Male 2:00 PM EDT Gender Identity Not on file Sexual Orientation Not on file documented as of this encounter Last Filed Vital Signs Vital Sign Reading Time Taken Comments Blood Pressure 130/78 08/06/2024 8:36 AM EDT Pulse 67 08/06/2024 8:36 AM EDT Temperature - - Respiratory Rate - - Oxygen Saturation 95% 08/06/2024 8:36 AM EDT Inhaled Oxygen Concentration - - Weight 81.2 kg (179 lb) 08/06/2024 8:36 AM EDT Height 177.8 cm (5' 10 ) 08/06/2024 8:36 AM EDT Body Mass Index 25.68 08/06/2024 8:36 AM EDT documented in this encounter Progress Notes * Thao Crump MD - 08/06/2024 9:15 AM EDT Chief Complaint Patient presents with Diabetes HPI Darrion Shipley is a 68 y.o. male had concerns including Diabetes. Patient presents for follow-up of diabetes. He reports gastrointestinal symptoms resolved after stopping synjardy. He did have a rise in glucose and jardiance was started. Current diabetes medications include the following: Rybelsus 7 mg daily Jardiance 25 mg daily Patient reports intermittently high glucose values which are generally after he had eaten somethingout of the ordinary. He denies adverse effects of current medications. Glucose values generally improved throughout the day. Patient is taking rosuvastatin 20 mg daily for hyperlipidemia. The following portions of the patient's history were reviewed and updated as appropriate: allergies, current medications, and past social history. Review of Systems Gastrointestinal: Negative for diarrhea, nausea and vomiting. BP 130/78 Pulse 67 Ht 177.8 cm (70 ) Wt 81.2 kg (179 lb) SpO2 95% BMI 25.68 kg/m?? Physical Exam Constitutional: well developed; well nourished no acute distress appears stated age ENT/Thyroid: not examined Eyes: Conjunctiva: clear Respiratory: breathing is unlabored clear to auscultation bilaterally Cardiovascular: regular rate and rhythm Chest: Not performed. Abdomen: Not performed. : Not performed. Musculoskeletal: Not performed Skin: not performed. Neuro: mental status, speech normal Psych: mood and affect are within normal limits Labs/Imaging A1C: Lab Results Component Value Date HGBA1C 6.4 (A) 08/06/2024 HGBA1C 6.6 (A) 04/08/2024 Glucose: Lab Results Component Value Date POCGLU 143 (A) 08/06/2024 Diagnoses and all orders for this visit: 1. Type 2 diabetes mellitus with hyperglycemia, without long-term current use of insulin (Primary) - POC Glucose, Blood - POC Glycosylated Hemoglobin (Hb A1C) Diabetes is well-controlled with hemoglobin A1c 6.4%. Glucose is mildly elevated during office visit Patient has intermittent hyperglycemia on home glucose data Patient denies adverse effects of current medications, plan to continue Rybelsus, Jardiance. Patient to contact the clinic in the interim between visits if values are persistently abnormal. Monofilament exam was completed March 2024 CMP, lipid panel, urine microalbumin are up-to-date from August 2023-patient reports that his PCP will repeat labs at follow-up next month and he will have these forwarded for review. 2. Hyperlipidemia, unspecified hyperlipidemia type Patient will continue rosuvastatin 20 mg daily Other orders - empagliflozin (Jardiance) 25 MG tablet tablet; Take 1 tablet by mouth Daily. Dispense: 90 tablet;Refill: 1 - Rybelsus 7 MG tablet; Take 7 mg by mouth Daily. Dispense: 90 tablet; Refill: 1 Outside labs received dated 09/08/2024 Alkaline phosphatase 81 ALT 26 AST 24 eGFR 85 Total cholesterol 189 LDL 101 Triglycerides 114 TSH 1.28 Urine albumin to creatinine ratio 5 Return in about 6 months (around 02/06/2025). The patient was instructed to contact the clinic withany interval questions or concerns. Electronically signed by: Thao Crump MD Community Association Manager Dictated Utilizing Dragon Dictation documented in this encounter Plan of Treatment Upcoming Encounters Date Type Department Care Team (Late st Contact Info) Description 02/08/2025 8:00 AM EST Office Visit [facility] END[facility] [address] [phone] Thao Crump MD [address] [phone] documented as of this encounter Procedures Procedure Name Priority Date/Time Associated Diagnosis Comments EGFR-GLOMERULAR FILTRATION Routine 09/09/2024 MICROALBUMIN / CREATININE URINE RATIO Routine 09/09/2024 POCT GLUCOSE, BLD (NON STRIP) Routine 08/06/2024 8:48 AM EDT Type 2 diabetes mellitus with hyperglycemia, without long-term current use of insulin POCT GLYCOSYLATED HEMOGLOBIN (HGB A1C) Routine 08/06/2024 8:48 AM EDT Type 2 diabetes mellitus with hyperglycemia, without long-term current use of insulin documented in this encounter Results * eGFR-Glomerular Filtration (09/09/2024) eGFR 85 Blood 09/09/2024 Historical Provider LAB BLOOD ORDERABLES Estefania l Result * Microalbumin / Creatinine Urine Ratio - Urine, Clean Catch (09/09/2024) Albumin/Creatin ine Ratio, Urine 5 Urine Urine specimen obtained by clean catch procedure / Unknown 09/09/2024 Historical Provider URINE ORDERABLES Final Re sult * (ABNORMAL) POC Glycosylated Hemoglobin (Hb A1C) (08/06/2024 8:48 AM EDT) Hemoglobin A1C 6.4(A) 4.5 - 5.7 % [facility] Lot Number [facility] Expiration Date [facility] Blood 08/06/2024 8:48 AM EDT Thao Crump MD POINT OF CARE TEST ORDERABLES F inal Result [facility]
[address] [place] [address], * (ABNORMAL) POC Glucose, Blood (08/06/2024 8:48 AM EDT) Glucose 143(A) 70 - 130 mg/dL Lot Number [id number] Expiration Date Blood 08/06/2024 8:48 AM EDT Thao Crump MD POINT OF CARE TEST ORDERABLES F inal Result documented in this encounter Visit Diagnoses Diagnosis Type 2 diabetes mellitus with hyperglycemia, without long-term current use of insulin- Primary Hyperlipidemia, unspecified hyperlipidemia type documented in this encounter Care Teams Glassware Verifier Relationship Specialty Start Date End Date Blu Estrada MD [address] [facility] [address] [facility] [address] [place] [address] PCP - General Family Medicine 02/11/23 documented as of this encounter
--- OUTSIDE RECORDS SUMMARY | 2024-09-09 05:05 | XMS_ITS ---
Author Organization [facility] Address [address] [place] [address] [address] ANG[place] Guadalupe [id number] Care Team Providers Care Community Health Nurse Supervisor Name Role Phone Blu Estrada Primary Care Provider Results Component Value Reference Range Notes H-Potassium Reviewed date:09/09/2024 04:33:42 PM Interpretation: Performing Lab: Notes/Report: K 4.2 3.5-5.1 mmoL/L REASON FOR VISIT critical lab (DONE) Encounters Encounter Location Date Provider Diagnosis [facility] [address] [facility] [address] [facility] [address] [place] Gu[place]upe [id number] 09/09/2024 Blu Estrada Abnormal finding of blood chemistry, unspecified R79.9 Assessments Encounter Date Diagnosis (ICD Code) Assessment Notes Treatment Notes Treatment Clinical Notes Section Notes 09/09/2024 Abnormal finding of blood chemistry, unspecified (ICD-10 - R79.9) Plan Of Treatment Next Appt Details Provider Name:Blu Hernandez ry, 03/09/2025 10:15:00 AM, [address], [address], [place] Gu[place], [phone], Progress Notes * CAMRYNDarrion Vick RufinoDOB:[birth year] (68 yo M)Acc No.[id number]:09/09/2024 Patient: Darrion CONNOR :1955 A ge:68 Y S ex:Male Address:[address] [place], [address] Subjective: * Chief Complaints: * c ritical lab (DONE) * Medical History: * Surgical History: * Hospitalization/Major Diagno stic Procedure: * Medications: Objective: * Vitals: * Physical Examination: Assessment: * Assessment: 1. A bnormal finding of blood chemistry, unspecified - R79.9 Plan: * Treatment: Value Reference Range K 4.2 3.5-5.1 - mmoL/L * Procedure Codes: * true * Date: Generated for Mayco almaraz/Barbara/eTnosmitting on: 0 11/01/2024 02:17 PM EDT
--- OUTSIDE RECORDS SUMMARY | 2024-09-14 11:00 | XMS_ITS | Encounter Summary ---
Author Organization Healthcare Address [address] [place] [address] Care Team Providers Care Vp Software Engineering Name Role Phone Blu Estrada MD Primary Care Provider [phone] Encounter Details Date Type Department Care Team (Late st Contact Info) Description 09/14/2024 11:00 AM EDT [facility] Visit [facility] [address] [place] [address] Jenifer Tejeda, DDS [address] [address] Willow Benson Obstructive sleep apnea (Primary Dx) Social History [...] Sign Reading Time Taken Comments Blood Pressure 150/92 09/14/2024 10:53 AM EDT Pulse 68 09/14/2024 10:53 AM EDT Temperature 36.7 C (98.1 F) 09/14/2024 10:53 AM EDT Respiratory Rate - - Oxygen Saturation 97% 09/14/2024 10:53 AM EDT Inhaled Oxygen Concentration - - Weight 81 kg (178 lb 9.2 oz) 09/14/2024 10:53 AM EDT Height 177.8 cm (5' 10 ) 09/14/2024 10:53 AM EDT Body Mass Index 25.62 09/14/2024 10:53 AM EDT documented in this encounter Miscellaneous Notes * Progress Notes - Willow Benson - 09/14/2024 11:00 AM EDT Patient returned to the [facility] at the [facility] for a follow-up appointment to evaluate his Panthera appliance for the management of moderate PETER. History of present illness: Darrion Shipley reported no improvement in his symptoms since our last appointment. Reportedly, he uses the appliance every night for 8 hours and indicated using the AM home economics expert every morning for 5 minutes as recommended. He denied for snoring and denied gasping for air. Reportedly, his sleep quality improved significantly, and his nocturia not changed (from 1 to 1). His daytime sleepiness has remained unchanged and the length of his afternoon naps has decreased. EES=3. Mr. Shipley denied changes in his bite and reported having jaw pain on the left side (masseter/pre-auricular area). The pain occurs after taking appliance out in the morning and remains the entire day. He would like to have the appliance pushed back. The self care recommendation have been helpful. Appointment Date ESS Night-time urination Initial eval 04/15/24 3 1 FU #1 06/24/24 3 0 FU #2 07/08/24 6 0 FU #3 07/29/2024 5 1 FU #4 08/19/2024 3 1 FU #5 09/14/24 3 1 Medical history: No changes were reported since last visit. Examination: Visit Vitals BP (!) 150/92 Pulse 68 Temp 36.7 ??C (98.1 ??F) Ht 1.778 m (5' 10 ) Wt 81 kg (178 lb 9.2 oz) SpO2 97% BMI 25.62 kg/m?? No changes in occlusion noted since last appointment. Grade 1 mobility #24 and 25 ID occlusal contact with max stock was noted between all teeth except teeth #6- 11 and their antagonist. Pain on palpation of left masseter Max opening 50 mm. Vertical overbite 3 mm and horizontal overjet 4 mm. Procedure: Appliance had size 26 arms. It was reduced 1 mm per side for a total of 27 mm arms per patient request. It was tried for 10 minutes and patient indicated it felt comfortable with slight tightness in the jaw muscles. Remaining protrusive movement 3 mm. Appointment Date Adjustment of appliance Total amount of protrusion Delivery 05/27/24 Arm #30 FU #1 06/24/24 Arm # 29 +1 mm FU #2 07/08/24 Arm #28 +1 mm FU #3 07/29/24 Arm #27 +1 mm FU #4 08/19/2024 Arm #26 +1 mm FU #5 09/14/24 Arm #27 -1 mm Assessment: Moderate obstructive sleep apnea managed by MAD pending results of second sleep study. Plan: Patient to continue wearing appliance nightly and recommended to use while taking nap. We will refer patient back to physician for the second sleep study w/ appliance in place. Patient to return for follow-up after completion of sleep study Cosigned by Jenifer Tejeda DDS at 09/15/2024 12:31 PM EDT Associated attestation - Jneifer Tejeda DDS - 09/15/2024 12:31 PM EDT I saw and evaluated the patient, I discussed the case with the crm dynamics developer and agree with the notes as documented below. documented in this encounter Plan of Treatment Upcoming Encounters Date Type Department Care Team (Late st Contact Info) Description 03/09/2025 2:30 PM EST Office Visit [facility] Room [facility] [place] [address] Jenifer Tejeda DDS [address] [address] Clary Valente documented as of this encounter Visit Diagnoses Diagnosis Obstructive sleep apnea- Primary Obstructive sleep apnea (adult) (pediatric) documented in this encounter Additional Health Concerns Assessment Noted Time A Body Mass Index follow-up plan has been documented for the patient 09/15/2024 12:33 PM EDT documented as of this encounter Care Teams Vp Software Engineering Relationship Specialty Start Date End Date Blu Estrada MD [address] [place] [address] PCP - General 08/09/21 documented as of this encounter
--- OUTSIDE RECORDS SUMMARY | 2024-11-01 14:16 | XMS_ITS | Encounter Summary ---
Author Organization [facility] Address [address] [place] [address] Care Team Providers Care Grain Oilseed Or Pasture Farm Manager Name Role Phone Blu Estrada MD Primary Care Provider [phone] Encounter Details Date Type Department Care Team [...] Description 03/09/2025 2:30 PM EST Office Visit [facility] [address] [place] [address] Jenifer Tejeda, DDS [address] [address] Clary Valente documented as of this encounter Visit Diagnoses Not on filedocumented in this encounter Additional Health Concerns Assessment Noted Time A Body Mass Index follow-up plan has been documented for the patient 08/20/2024 10:14 AM EDT documented as of this encounter Care Teams Grain Oilseed Or Pasture Farm Manager Relationship Specialty Start Date End Date Blu Estrada MD [address] [place] [id number] PCP - General 08/09/21 documented as of this encounter
--- OUTSIDE RECORDS SUMMARY | 2024-11-01 14:16 | XMS_ITS | Clinical Summary ---
Author Organization [facility] Address [address] [place] [address] Care Team Providers Care Junior Graphic Designer Name Role Phone Blu Estrada MD Primary Care Provider [phone] Allergies No known active allergies Medications modafinil (PROVIGIL) 100 MG tablet Take 1 tablet by mouth Daily. 300 mg. 02/03/2023 Active meloxicam (MOBIC) 15 MG tablet Take 1 tablet by mouth Daily. 01/27/2023 Active primidone (MYSOLINE) 250 MG tablet Take 1 tablet by mouth Every 12 (Twelve) Hours. 12/23/2022 Active rosuvastatin (CRESTOR) 20 MG tablet Take 1 tablet by mouth every night at bedtime. 01/27/2023 Active propranolol LA (INDERAL LA) 160 MG 24 hr capsule Take 1 capsule by mouth Daily. 12/03/2022 Active coenzyme Q10 100 MG capsule Take 2 capsules by mouth Daily. Active vitamin D3 125 MCG (5000 UT) capsule capsule Take 1 capsule by mouth Daily. Active lisinopril (PRINIVIL,ZESTR IL) 10 MG tablet Take 1 tablet by mouth Daily. 12/06/2023 Active empagliflozin (Jardiance) 25 MG tablet tablet Take 1 tablet by mouth Daily. 90 tablet 1 08/06/2024 Active Rybelsus 7 MG tablet Take 7 mg by mouth Daily. 90 tablet 1 08/06/2024 Active Active Problems No known active problems Encounters Date Type Department Care Team Description 08/06/2024 9:15 AM EDT Office Visit [facility] ENDOCR[facility]OLOGY [address] [facility] [address] [place] [address] Thao Crump MD Type 2 diabetes mellitus with hyperglycemia, without long-term current use of insulin (Primary Dx); Hyperlipidemia, unspecified hyperlipidemia type 08/06/2024 Travel from Last 3 Months Family History Medical History Relation Name Comments No Known Problems Brother 1 Jose Guadalupe No Known Problems Brother 2 [place] Brain cancer Father Jose Guadalupe Stringertox Sr Cancer Father Jose Guadalupe Stringertox Sr Diabetes Mother Jenifer Shipley Relation Name Status Comments Brother 1 Jose Guadalupe Alive Brother 2 [place] Alive Daughter 1 Melanie Alive Daughter 2 [place] Alive Father Jose Guadalupe Stringertox Sr Mother Jenifer Shipley Social History Tobacco Use Types Packs/Day Years [...] Pulse 67 08/06/2024 8:36 AM EDT Temperature 36.3 C (97.3 F) 12/19/2023 9:30 AM EDT Respiratory Rate 16 12/19/2023 9:30 AM EDT Oxygen Saturation 95% 08/06/2024 8:36 AM EDT Inhaled Oxygen Concentration - - Weight 81.2 kg (179 lb) 08/06/2024 8:36 AM EDT Height 177.8 cm (5' 10 ) 08/06/2024 8:36 AM EDT Body Mass Index 25.68 08/06/2024 8:36 AM EDT Plan of Treatment Upcoming Encounters Date Type Department Care Team (Late st Contact Info) Description 02/08/2025 8:00 AM EST Office Visit [facility] ENDOCRINOLOGY [address] [facility] [address] [place] [address] Thao Crump MD [address] [facility] [address] [place] [id number] Health Maintenance Due Date Last Done Comments LIPID PANEL 1956 TDAP/TD VACCINES (1 - Tdap) 10/11/1975 COLOGUARD 2001 COLON CANCER SCREENING 5 YEA R SIGMOIDOSCOPY 2001 COLONOSCOPY [address] CANCER SCREENING [address] COLONOGRAPHY 2001 FECAL OCCULT BLOOD TEST 2001 FIT Testing (1 year) 2001 ZOSTER VACCINE (1 of 2) 2006 ANNUAL WELLNESS VISIT 02/10/2023 HEPATITIS C SCREENING 02/10/2023 COVID-19 Vaccine (3 - 2023-2 5 season) 2023 02/22/2021, 05/31/2020 INFLUENZA VACCINE 12/22/2024 03/09/2024, , 12/07/2018, Additional history exists HEMOGLOBIN A1C 02/06/2025 08/06/2024, 03/24, 12/19/2023, Additional history exists DIABETIC EYE EXAM 03/03/2025 03/03/2024 (Pa tient-Reported (Performed Externally)), 02/20/2023 (Patient-Reported (Performed Externally)) DIABETIC FOOT EXAM 04/08/2025 04/08/2024, 0 04/08/2024, 04/08/2024 URINE MICROALBUMIN-CREATININ E RATIO (uACR) 09/09/2025 09/09/2024, 09/08/2023, 09/08/2023 Pneumococcal Vaccine 50+ Completed 03/09/2024, 1203/2022 Procedures Procedure Name Priority Date/Time Associated Diagnosis Comments EGFR-GLOMERULAR FILTRATION Routine 09/09/2024 MICROALBUMIN / CREATININE URINE RATIO Routine 09/09/2024 SCANNED - LABS 09/09/2024 POCT GLYCOSYLATED HEMOGLOBIN (HGB A1C) Routine 08/06/2024 8:48 AM EDT Type 2 diabetes mellitus with hyperglycemia, without long-term current use of insulin POCT GLUCOSE, BLD (NON STRIP) Routine 08/06/2024 8:48 AM EDT Type 2 diabetes mellitus with hyperglycemia, without long-term current use of insulin from Last 3 Months Results * LABS SCANNED (09/09/2024) Blu Estrada MD LAB BLOOD ORDERABLES Final R esult * eGFR-Glomerular Filtration (09/09/2024) eGFR 85 Blood 09/09/2024 Result [facility] Historical Provider LAB BLOOD ORDERABLES Estefania l Result * Microalbumin / Creatinine Urine Ratio - Urine, Clean Catch (09/09/2024) Albumin/Creatin ine Ratio, Urine 5 Urine Urine specimen obtained by clean catch procedure / Unknown 09/09/2024 Result [facility] Historical Provider URINE ORDERABLES Final Re sult * (ABNORMAL) POC Glucose, Blood (08/06/2024 8:48 AM EDT) Glucose 143(A) 70 - 130 mg/dL Lot Number [id number] Expiration Date [id number] Blood 08/06/2024 8:48 AM EDT Result [facility] Thao rCump MD POINT OF CARE TEST ORDERABLES F inal Result * (ABNORMAL) POC Glycosylated Hemoglobin (Hb A1C) (08/06/2024 8:48 AM EDT) Hemoglobin A1C 6.4(A) 4.5 - 5.7 % [facility] Lot Number [id number] [facility] Expiration Date [facility] Blood 08/06/2024 8:48 AM EDT Thao Crump MD POINT OF CARE TEST ORDERABLES F inal Result [facility]
[address] [place] [address], [place] [phone] from Last 3 Months Insurance [address] [facility] [place] [address] MEDICARE A & B Member Subscriber Plan / Payer (Ef fective 2021-Present) Name:Darrion Shipley Member ID:[id number] Relation to Subscriber:Self Name:Darrion Shipley Subscriber ID:[id number] Payer ID:[id number] Group ID:Not on file Type:Not on file Address: [facility] [id number] [address] Care Teams Junior Graphic Designer Relationship Specialty Start Date End Date Blu Estraad MD [address] [place] [address] PCP - General Family Medicine 02/11/23
--- OUTSIDE RECORDS SUMMARY | 2024-11-01 14:17 | XMS_ITS | Clinical Summary ---
Author Organization [facility] Address [address] [place] [address] Care Team Providers Care Vegetable Buncher Name Role Phone Blu Estrada MD Primary Care Provider [phone] Allergies No known active allergies Medications cholecalciferol [...] Encounters Date Type Department Care Team Description 09/14/2024 11:00 AM EDT Office Visit [place] [facility] Room [address] [place] [address] Jenifer Tejeda, [place] Obstructive sleep apnea (Primary Dx) 09/14/2024 Travel 09/08/2024 Telephone [facility] O[facility]facial Pain Clinic [facility] Room [address] [place] [address] Clary Valente 09/08/2024 Telephone [facility] Room [address] [place] [address] ModeJames [email or web address] 09/07/2024 Travel 08/19/2024 10:30 AM EDT Office Visit [facility]facial Pain Clinic [facility] Room [address] [place] [address] Jenifer Tejeda, [place] Obstructive sleep apnea (Primary Dx) 08/19/2024 Travel 08/12/2024 Travel from Last 3 Months Family History Medical History Relation Name Comments Cancer Father Jose Guadalupe Camryn Sr Diabetes Mother Jenifer Camryn Relation Name Status Comments Father Jose Guadalupe Camryn Sr Alive Mother Jenifer Camryn Alive Social History Tobacco Use Types Packs/Day [...] Mass Index 25.62 09/14/2024 10:53 AM EDT Plan of Treatment Upcoming Encounters Date Type Department Care Team (Late st Contact Info) Description 03/09/2025 2:30 PM EST Office Visit [place] [facility] Room [address] [place] [address] Jenifer Tejeda Nishant, DDS [address] [place] [address] Clary Valente Health Maintenance Due Date Last Done Comments Dental Oral Exam 1955 Dental Prophylaxis 1955 Dental X-Ray: Bitewings 1955 Dental X-Ray: Full Mouth 1956 [facility]-Depression Screening 1956 [facility]-Hepatitis C Screening 1956 [facility]-Medicare Annual Wellness (AWV) 1956 [facility]-/Child/Adol SDOH Screenings 1956 [facility]- SDOH Screenings 1974 [facility]-Adult SDOH Screenings 1974 [facility]-DTaP,Tdap,and Td Vaccines (1 - Tdap) 10/11/1975 CT Colonography 2001 Colonoscopy 2001 FIT-DNA 2001 FIT 2001 FOBT 2001 Sigmoidoscopy 2001 [facility]-Colorectal Cancer Screening 2001 [facility]Y-Zoster Vaccines (1 of 2) 2006 [id number] Vaccine (3 - 2023- season) 2023 02/22/2021, 05/31/2020 [facility]-Influenza Vaccine (#1) 11/22/202402/05, 12/07/2018, 02/27/2018, Additional history exists [facility]-RSV Vaccine: 60+ Years or (1 - 1-dose 75+ series) 10/11/2031 [facility]-Pneumococcal Vaccine: 50+ Years Completed 03/09/2024, 02/21/2023 [facility]-Obesity Intervention Completed 025, 08/19/2024, 07/29/2024, Additional history exists HPV Vaccines Aged Out [...] patient's age to complete this [place] [address] Care Teams Vegetable Buncher Relationship Specialty Start Date End Date Blu Estrada MD [address] [place] [facility] [address] [place] [address] PCP - General 08/09/21
--- OUTSIDE RECORDS SUMMARY | 2024-11-01 14:17 | XMS_ITS | Encounter Summary ---
Author Organization [facility] Address [address] [place] [address] Care Team Providers Care Ice Skating Instructor Name Role Phone Blu Estrada MD Primary Care Provider [phone] Encounter Details Date Type Department Care Team (Late st Contact Info) Description 09/08/2024 Telephone [facility] Orofacial Pain Clinic Orofacial [facility] Clinic [facility] Room [address] [place] [address] Gaby Pennington [facility] [place] [address] Social History Tobacco Use Types Packs/Day Years [...] Description 03/09/2025 2:30 PM EST Office Visit [facility] Orofacial Pain Clinic Orofacial Pain [facility] Room [address] [place] [address] Jenifer Tejeda, DDS [address] [address] Clary Valente documented as of this encounter Visit Diagnoses Not on filedocumented in this encounter Additional Health Concerns Assessment Noted Time A Body Mass Index follow-up plan has been documented for the patient 08/20/2024 10:14 AM EDT documented as of this encounter Care Teams Ice Skating Instructor Relationship Specialty Start Date End Date Blu Estrada MD [address] [place] [address] PCP - General 08/09/21 documented as of this encounter
--- OUTSIDE RECORDS SUMMARY | 2024-11-01 14:17 | XMS_ITS | Encounter Summary ---
Author Organization [facility] Address [address] [id number] Care Team Providers Care Kettle Loader Name Role Phone Blu Estrada MD Primary Care Provider [phone] Reason for Referral * Consultation (Routine) - Closed Specialty Diagnoses / Procedures Referred By Anna layne Referred To Contact Dentist / Pain Medicine Diagnoses Obstructive sleep apnea Mariaa Macdonald MD [address] [place] [address] Phone: tel: fax: Jenifer Tejeda, DDS [address] [facility] [address] [place] [address] Phone: tel: fax: Referral ID Status Reason Start Date Expiration Date Visits Re quested Visits Authorized [id number] Closed 01/12/2024 07/13/2025 1 1 Encounter Details Date Type Department Care Team (Late st Contact Info) Description 01/12/2024 Community [facility] [address] [place] [address] Mariaa Macdonald MD [address] [facility] [address] [place] [address] Obstructive sleep apnea (Primary Dx) Social [...] Description 03/09/2025 2:30 PM EST Office Visit [place] [facility] [address] [place] [address] Jenifer Tejeda, DDS [address] [place] [address] Clary Valente Scheduled Referrals Name Type Priority Associated Diagnoses Order Schedule Ambulatory Referral to Orofacial Pain Outpatient Referral Routine Obstructive sleep apnea Expected: 01/12/2024 (Approximate), Expires: 07/12/2025 documented as of this encounter Visit Diagnoses Diagnosis Obstructive sleep apnea- Primary Obstructive sleep apnea (adult) (pediatric) documented in this encounter Care Teams Kettle Loader Relationship Specialty Start Date End Date Blu Estrada MD [address] [facility] [address] [place] [address] PCP - General 08/09/21 documented as of this encounter
--- OUTSIDE RECORDS SUMMARY | 2024-11-01 14:17 | XMS_ITS | Encounter Summary ---
Author Organization [facility] Address [address] [place] [address] Care Team Providers Care Armature Rewinder Name Role Phone Blu Estrada MD Primary Care Provider [phone] Encounter Details Date Type Department Care Team (Latest Contact Info) Description 09/14/2024 Travel Social History Tobacco Use Types Packs/Day [...] Description 03/09/2025 2:30 PM EST Office [facility] [place] [facility] [address] [place] [address] Jenifer Tejeda, DDS [address] [address] Clary Valente documented as of this encounter Visit Diagnoses Not on filedocumented in this encounter Additional Health Concerns Assessment Noted Time A Body Mass Index follow-up plan has been documented for the patient 09/15/2024 12:33 PM EDT documented as of this encounter Care Teams Armature Rewinder Relationship Specialty Start Date End Date Blu Estrada MD [address] [place] [address] PCP - General 08/09/21 documented as of this encounter
--- OUTSIDE RECORDS SUMMARY | 2024-11-01 14:17 | XMS_ITS | Encounter Summary ---
Author Organization [facility] Address [address] [place] [address] Care Team Providers Care Spray Stainer Name Role Phone Blu Estrada MD Primary Care Provider [phone] Encounter Details Date Type Department Care Team (Late st Contact Info) Description 09/08/2024 Telephone [facility] Orofacial Pain Clinic Orofacial Pain Clinic [facility] Room [address] [place] [address] Clary Valente Social History Tobacco Use Types [...] Description 03/09/2025 2:30 PM EST Office Visit [facility] O[facility]facial Pain Clinic [facility] Room [address] [place] [address] Jenifer Tejeda, DDS [address] [address] Clary Valente documented as of this encounter Visit Diagnoses Not on filedocumented in this encounter Additional Health Concerns Assessment Noted Time A Body Mass Index follow-up plan has been documented for the patient 08/20/2024 10:14 AM EDT documented as of this encounter Care Teams Spray Stainer Relationship Specialty Start Date End Date Blu Estrada MD [address] [place] [facility] [address] [place] [address] PCP - General 08/09/21 documented as of this encounter
== END ==
LOC: SL 14:02
PROVIDERS: PCP Specialist; Visit Provider Specialist
DX: G47.33 Obstructive sleep apnea (adult) (pediatric) (principal); G47.36 Sleep related hypoventilation in conditions classified elsewhere
CPT/HCPCS: G0399

== ENCOUNTER 2024-11-24 09:04 | Outpatient (CLI) | payer MEDICARE, SELFPAY ==
--- OUTSIDE RECORDS SUMMARY | 2024-11-24 09:23 | XMS_ITS | Encounter Summary ---
Author Organization [facility] Address [address] [id number] Care Team Providers Care Twill Cutter Name Role Phone Blu Estrada MD Primary Care Provider [phone] Reason for Referral * Consultation (Routine) - Closed Specialty Diagnoses / Procedures Referred By Anna layne Referred To Contact Dentist / Pain Medicine Diagnoses Obstructive sleep apnea Mariaa Macdonald MD [address] [place] [address] Phone: tel: fax: Jenifer Tejeda, DDS [address] [facility] [address] [place] [address] Phone: tel: fax: Referral ID Status Reason Start Date Expiration Date Visits Re quested Visits Authorized [id number] Closed 01/12/2024 07/13/2025 1 1 Encounter Details Date Type Department Care Team (Late st Contact Info) Description 01/12/2024 Community [facility] Community Practice [address] [place] [address] Mariaa Macdonald MD [address] [facility] [address] [place] [address] Obstructive sleep apnea (Primary Dx) Social [...] Description 03/09/2025 2:30 PM EST Office Visit [place] [facility] [address] [place] [address] Jenifer Tejeda, DDS [address] [place] [address] Clary Valente Scheduled Referrals Name Type Priority Associated Diagnoses Order Schedule Ambulatory Referral to Orofacial Pain Outpatient Referral Routine Obstructive sleep apnea Expected: 01/12/2024 (Approximate), Expires: 07/12/2025 documented as of this encounter Visit Diagnoses Diagnosis Obstructive sleep apnea- Primary Obstructive sleep apnea (adult) (pediatric) documented in this encounter Care Teams Twill Cutter Relationship Specialty Start Date End Date Blu Estrada MD [address] [facility] [address] [place] [address] PCP - General 08/09/21 documented as of this encounter
--- OUTSIDE RECORDS SUMMARY | 2024-11-24 09:23 | XMS_ITS | Clinical Summary ---
Author Organization [facility] Address [address] [place] [address] Care Team Providers Care Divisional Storekeeper Name Role Phone Blu Estrada MD Primary Care Provider [phone] Allergies No known active allergies Medications modafinil [...] Active Active Problems No known active problems Family History Medical History Relation Name Comments No Known Problems Brother 1 Jose Guadalupe No Known Problems Brother 2 Woodrow Brain cancer Father Jose Guadalupe Yanni Sr Cancer Father Jose Guadalupe Cowan Sr Diabetes Mother Jenifer Cowan Relation Name Status Comments Brother 1 Jose Guadalupe Alive Brother 2 Woodrow Alive Daughter 1 Melanie Alive Daughter 2 Belkys Alive Father Jose Guadalupe Judgex Sr Mother Jenifer Cowan Social History Tobacco Use Types Packs/Day Years [...] Description 02/08/2025 8:00 AM EST Office Visit [facility] ENDOCRINOLOGY [address] [place] [address] Thao Crump MD [address] [place] [address] [place] [address] Health Maintenance Due Date Last Done Comments LIPID PANEL 1956 TDAP/TD VACCINES (1 - Tdap) 10/11/1975 COLOGUARD 2001 COLON CANCER SCREENING 5 YEA R SIGMOIDOSCOPY 2001 COLONOSCOPY [address] CANCER SCREENING 2001 CT COLONOGRAPHY 2001 FECAL OCCULT BLOOD TEST 2001 FIT Testing (1 year) 2001 ZOSTER VACCINE (1 of 2) 2006 ANNUAL WELLNESS VISIT 02/10/2023 HEPATITIS C SCREENING 02/10/2023 COVID-19 Vaccine (3 - 2024-2 6 season) 2024 02/22/2021, 05/31/2020 INFLUENZA VACCINE 12/22/2024 03/09/2024, , 12/07/2018, Additional history exists HEMOGLOBIN A1C 02/06/2025 08/06/2024, 03/24, 12/19/2023, Additional history exists DIABETIC EYE EXAM 03/03/2025 03/03/2024 (Pa tient-Reported (Performed Externally)), 02/20/2023 (Patient-Reported (Performed Externally)) DIABETIC FOOT EXAM 04/08/2025 04/08/2024, 0 04/08/2024, 04/08/2024 URINE MICROALBUMIN-CREATININ E RATIO (uACR) 09/09/2025 09/09/2024, 09/08/2023, 09/08/2023 Pneumococcal Vaccine 50+ Completed 03/09/2024, 03/2022 Procedures Procedure Name Priority Date/Time Associated Diagnosis Comments EGFR-GLOMERULAR FILTRATION Routine 09/09/2024 MICROALBUMIN / CREATININE URINE RATIO Routine 09/09/2024 SCANNED - LABS 09/09/2024 POCT GLYCOSYLATED HEMOGLOBIN (HGB A1C) Routine 08/06/2024 8:48 AM EDT Type 2 diabetes mellitus with hyperglycemia, without long-term current use of insulin from Last 3 Months or Most Recently Relevant to Health Maintenance Results * LABS SCANNED (09/09/2024) us Blu Estrada MD LAB BLOOD ORDERABLES Final [...] Hemoglobin A1C 6.4(A) 4.5 - 5.7 % [facility] Lot Number [id number] [facility] Expiration Date [facility] Blood 08/06/2024 8:48 AM EDT Thao Crump MD POINT OF CARE TEST ORDERABLES F inal Result [facility]
[address] [place] [id number], from Last 3 Months or Most Recently Relevant to Health Maintenance Insurance MEDICARE A & B Member Subscriber Plan / Payer (Ef fective 2021-Present) Name:Darrion Cowan Member ID:[id number] Relation to Subscriber:Self Name:Darrion Cowan Subscriber ID:[id number] Payer ID:[id number] Group ID:Not on file Type:Not on file [address] Care Teams Divisional Storekeeper Relationship Specialty Start Date End Date Blu Estrada MD [address] [place] [address] [place] [id number] PCP - General Family Medicine 02/11/23
--- OUTSIDE RECORDS SUMMARY | 2024-11-24 09:23 | XMS_ITS | Clinical Summary ---
Author Organization [facility] Address [address] [place] [address] Care Team Providers Care Press Offbearer Name Role Phone Blu Estrada MD Primary Care Provider [phone] Allergies No known active allergies Medications cholecalciferol [...] Description 09/14/2024 11:00 AM EDT Office Visit [place] [facility] Clinic O[facility]facial Pain Clinic [facility] Room [address] [place] [address] Jenifer Tejeda DDS [place], Monica R Obstructive sleep apnea (Primary Dx) 09/14/2024 Travel 09/08/[address] [facility] Orofacial Pain Clinic Orofacial Pain Clinic [facility] Room [facility] [address] [place] [address] Clary Valente 09/08/[address] [facility] Orofacial Pain [facility] Orofacial Pain [facility] Room [facility] [address] [place] [address] ModeJames [email or web address] 09/07/2024 Travel from Last 3 Months Family History [...] Description 03/09/2025 2:30 PM EST Office Visit [facility] Orofacial Pain [facility] Orofacial Pain [facility] Room [address] [place] [address] Jenifer Tejeda DDS [address] [address] Clary Valente Health Maintenance Due Date Last Done Comments Dental Oral Exam 1955 Dental Prophylaxis 1955 Dental X-Ray: Bitewings 1956 Dental X-Ray: Full Mouth 1956 [facility]-Depression Screening 1956 [facility]-Hepatitis C Screening 1956 [facility]-Medicare Annual Wellness (AWV) 1956 [facility]-Infant/Child/Adol SDOH Screenings 1956 [facility]- SDOH Screenings 1974 [facility]-Adult SDOH Screenings 1974 [facility]-DTaP,Tdap,and Td Vaccines (1 - Tdap) 10/11/1975 CT Colonography 2001 Colonoscopy 2001 FIT-DNA 2001 FIT 2001 FOBT 2001 Sigmoidoscopy 2001 [facility]-Colorectal Cancer Screening 2001 [facility]Y-Zoster Vaccines (1 of 2) 2006 [id number] Vaccine (3 - season) 2024 02/22/2021, 05/31/2020 [facility]-Influenza Vaccine (#1) 11/22/202402/05, 12/07/2018, [...] age to complete this topic Insurance [id number] [facility] [place] [id number] ANTH MEDICARE Care Teams Press Offbearer Relationship Specialty Start Date End Date Blu Estrada MD [address]10 [facility] [address] [place] [address] PCP - General 08/09/21
== END 2024-11-24 23:59 | disposition home or self-care (01) ==
LOC: RT 09:05
PROVIDERS: PCP Family Medicine; Visit Provider Specialist
DX: G47.33 Obstructive sleep apnea (adult) (pediatric) (principal); G47.10 Hypersomnia, unspecified; I49.9 Cardiac arrhythmia, unspecified; R00.2 Palpitations; R94.31 Abnormal electrocardiogram [ECG] [EKG]
CPT/HCPCS: 93225; 93227

== ENCOUNTER → 2024-12-01 11:04 | Outpatient (CLI) | payer MEDICARE, SELFPAY ==
--- OUTSIDE RECORDS SUMMARY | 2023-09-08 05:00 | XMS_ITS ---
Author Organization [facility] Address [address] [facility] [address] [place] [id number] Care Team Providers Care Tomography Technologist Name Role Phone Blu Estrada Primary Care [...] 09:23:13 AM Interpretation:gluc 147 Performing Lab: Notes/Report: Test performed by [facility], [employer] [address] [place] [address] , [address], [place] [address] Nicolas Skelton MD, Pattern Drafter CLIA: [id number] Sodium 142 135-145 mEq/L Potassium 4.2 3.5-5.3 [...] Interpretation:Normal Performing Lab: Notes/Report: Test performed by [facility], [address] , [place] [address] Nicolas Skelton MD, Pattern Drafter CLIA: [id number] Cholesterol 171 <200 mg/dL Triglycerides 121 <150 [...] Interpretation:Normal Performing Lab: Notes/Report: Test performed by [facility] [address] [place] [address] , [place] [address] Nicolas Skelton MD, Pattern Drafter CLIA: [id number] PSA 1.54 <4.00 ng/mL Please note this is an ultrasensitive PSA assay with a lower limit of detection of 0.014 ng/mL. This test is performed by the Bert ECLIA methodology. Values obtained with different assay methods or kits cannot be directly compared. P-TSH reflex to FT4 Reviewed date:09/09/2023 09:23:13 AM Interpretation:Normal Performing Lab: Notes/Report: Test performed by [facility] [address] [place] [address] , [place] [address] Nicolas Skelton MD, Pattern Drafter CLIA: [id number] TSH reflex to FT4 1.54 0.43-5.25 mU/L P-Microalbumin/Creatinine, R andom Urine Sample Reviewed date:09/09/2023 09:23:13 AM Interpretation:satisfactory Performing Lab: Notes/Report: Test performed by [facility] [address] [place] [address] , [address], [place] [address] Nicolas Skelton MD, Pattern Drafter CLIA: [id number] Albumin/Creatinine Ratio, Urine See Comment 0-30 ug/mg Unable to calculate Urine Albumin/Creatinine Ratio when urine creatinine or urine albumin fall outside established reportable range. Microalbumin, Urine, Random <0.3 Creatinine, Urine 101.5 P-Vitamin D 25-Hydroxy Reviewed date:09/09/2023 09:23:13 AM Interpretation:Normal Performing Lab: Notes/Report: Test performed by [facility] [address] [place] [address] , [address], [place] [address] Nicolas Skelton MD, Pattern Drafter CLIA: [id number] Vitamin D 25-Hydroxy 52.3 30.0-100.0 ng/mL Interpretation [...] Provider Diagnosis [facility] [address] [facility] [address] [place] [address], [place] [phone] 09/08/2023 Blu Estrada Type 2 diabetes angel[address], [address], [place], [id number], Progress Notes * Darrion COWANDOB:09/[birth year] (69 yo M)Acc No.[id number]:09/08/2023 Progress Notes Patient: Darrion CONNOR Provider: Cody Estrada M.D. :1955 A ge:67 Y S ex:Male Date:09/08/2023 Address:[address] [facility] [id number] Subjective: * Chief Complaints: * 1 . [...] G 2211 Complex e/[place], [address] GLUCOSE TEST, 91496 GLYCATED HEMOGLOBIN TEST, Modifiers: QW * Follow Up: 6 Months * Images: Billing Information: * Visit Code: 32453 Office Visit, Est Pt., Level 4. * Procedure Codes: G2211 Complex e/[place]. [address] GLUCOSE TEST. 76963 GLYCATED HEMOGLOBIN TEST. Modifiers: QW * Electronic signature of Cyn Estrada MD on 12/01/2024 at 11:07 AM EDT Sign off status: Pending * Provider: Cody Estrada M.D. Date: 0 09/08/2023 Generated for Mayco almaraz/Barbara/Cynthia on: 0 12/01/2024 11:07 AM EDT History and Physical Notes * HPI (History of Present Illness) Category Sub-Category Detail Notes Category Not es Endocrinology Maintenance [facility]. Pt [...]
--- OUTSIDE RECORDS SUMMARY | 2023-09-22 10:45 | XMS_ITS ---
[facility] Address [address] [place] [id number] Care Team Providers Care Grid Caster Name Role Phone Blu Estrada Primary Care [...] 09/22/2023 Encounters Encounter Location Date Provider Diagnosis [facility] [address] [facility] 36 [facility] [address] [place] [id number] 09/22/2023 Blu Estrada Acute URI J06.9 Assessments Encounter Date [...] Name:Blu Hernandez ry, 03/09/2025 10:15:00 AM, [address] [facility] [address] [facility], [address], [place], [id number], Progress Notes * Darrion COWANDOB:09/22 (69 yo M)Acc No.[id number]:09/22/2023 Progress Notes Patient: Darrion CONNOR Provider: Cody Estrada M.D. :1955 A ge:67 Y S ex:Male Date:09/22/2023 Address:[address] [place] [address] [place], [id number] Subjective: * Chief Complaints: * 1 . [...] Procedure Codes: 3 6416 CAPILLARY BLOOD DRAW, [address] [place], [address] CBC WITH AUTO DIFF, G2211 Complex e/m visit add on * Follow Up: p rn * Images: Billing Information: * Visit Code: 68539 Office Visit, Est Pt., Level 3. * Procedure Codes: 26521 CAPILLARY BLOOD [place]. [address] [place]. [address] CBC WITH AUTO DIFF. G2211 Complex e/m visit add on. * Electronic signature of Cyn Estrada MD on 12/01/2024 at 11:07 AM EDT Sign off status: Pending * Provider: Cody Estrada M.D. Date: 0 09/22/2023 Generated for Mayco almaraz/Barbara/eTransmitting on: 0 12/01/2024 11:07 AM EDT History [...]
--- OUTSIDE RECORDS SUMMARY | 2024-03-09 05:00 | XMS_ITS ---
Author [facility] Address [address] [place] [id number] Care Team Providers Care Gerentological Physiotherapist Name Role Phone Blu Estrada Primary Care Provider [phone] Allergies No Known Allergies REASON FOR VISIT [...] 03/09/2024 Encounters Encounter Location Date Provider Diagnosis [facility] [address] [place] [phone] 03/09/2024 Blu Estrada Essential hypertensi on I10 [...] 03/09/2025 10:15:00 AM, [address] [facility], [address], [place], [id number], Progress Notes * Darrion COWAN:[birth year] (69 yo M)Acc No.[id number]:03/09/2024 Progress Notes Patient: Darrion CONNOR Provider: Cody Estrada M.D. :1955 A ge:68 Y S ex:Male Date:03/09/2024 Address:[address] [place] [address] [id number] Subjective: * Chief Complaints: * 1 . [...] * Images: Billing Information: * Visit Code: 85572 Office Visit, Est Pt., Level 4. * Procedure Codes: G2211 Complex e/m visit add on. * Electronic signature of Cyn Estrada MD on 12/01/2024 at 11:08 AM EDT Sign off status: Pending * Provider: Cody Estrada M.D. Date: 05/10/2023 Generated for Mayco almaraz/Barbara/Jayitting on: 0 12/01/2024 11:08 AM EDT History and Physical Notes * [...]
--- OUTSIDE RECORDS SUMMARY | 2024-09-07 05:30 | XMS_ITS ---
Author Organization [facility] Address [address] [facility] [address] ANGIE Guadalupe [id number] Care Team Providers Care Sand Drier Name Role Phone Maxi Estradaian Primary Care Provider Allergies No Known Allergies Results Component Value Reference Range Notes P-Comprehensive Metabolic Pa zafar (CMP) Reviewed date:09/09/2024 09:06:30 AM Interpretation:K+ 6.8, gluc 132 Performing Lab: Notes/Report: Test performed by [facility], [facility] [address] [place] [address] , [address], [place] [address] Nicolas Skelton MD, Second Baller CLIA: [id number] Sodium 138 135-145 mmol/L Potassium 6.8 3.5-5.3 [...] Interpretation:Normal Performing Lab: Notes/Report: Test performed by [facility], [place] [id number] [facility] [address]even [address], [place] [address] Nicolas Skelton MD, Second Baller CLIA: [id number] Cholesterol 189 <200 mg/dL Triglycerides 114 <150 [...] Interpretation:Normal Performing Lab: Notes/Report: Test performed by [facility] [address] , [place] [address] Nicolas Skelton MD, Second Baller CLIA: [id number] PSA 1.55 <4.00 ng/mL Please note this is an ultrasensitive PSA assay with a lower limit of detection of 0.014 ng/mL. This test is performed by the [employer] ECLIA methodology. Values obtained with different assay methods or kits cannot be directly compared. P-TSH reflex to FT4 Reviewed date:09/09/2024 09:06:30 AM Interpretation:Normal Performing Lab: Notes/Report: Test performed by [facility] [address] , [place] [address] Nicolas Skelton MD, Second Baller CLIA: [id number] TSH reflex to FT4 1.28 0.43-5.25 mU/L P-Microalbumin/Creatinine, R andom Urine Sample Reviewed date:09/09/2024 09:06:30 AM Interpretation:Normal Performing Lab: Notes/Report: Test performed by [facility] [address] , [place] [address] Nicolas Skelton MD, Second Baller CLIA: [id number] Albumin/Creatinine Ratio, Urine 5 0-30 ug/mg Microalbumin, Urine, Random 0.5 Creatinine, Urine 92.1 P-Vitamin D 25-Hydroxy Reviewed date:09/09/2024 09:06:30 AM Interpretation:46.3 Performing Lab: Notes/Report: Test performed by [facility] [address] , [place] [address] Nicolas Skelton MD, Second Baller CLIA: [id number] Vitamin D 25-Hydroxy 46.3 30.0-100.0 ng/mL Interpretation [...] Risk Notes Problem Obstructive sleep apnea syndrome (94054881) PETER (obstructiv e sleep apnea) (G47.33) Active confirmed Vital Signs Blood pressure systolic 124 mm Hg 09/08/19 25 Blood pressure diastolic 70 mm Hg 025 Heart Rate 75 /min 09/07/2024 Height 69.50 in 09/07/2024 Weight 178.8 lbs 09/07/2024 BMI 26.02 kg/m2 09/07/2024 Encounters Encounter Location Date Provider Diagnosis [facility] [address] [place], [place] [id number] 09/07/2024 Blu T[place]seh Essential hypertensi on I10 ; Mixed hyperlipidemia E78.2 ; Hypertriglyceridemia E78.1 ; Vitamin D deficiency E55.9 ; Type 2 diabetes mellitus without complication, without long-term current use of insulin E11.9 ; Prostate cancer screening Z12.5 ; PETER (obstructive sleep apnea) G47.33 ; Type 2 diabetes mellitus with diabetic mononeuropathy, unspecified whether intermodal owner operator truck driver insulin use E11.41 and BMI 26.0-26.9,adult Z68.26 [...] angelito itus with diabetic mononeuropathy, unspecified whether intermodal owner operator truck driver insulin use (ICD-10 - E11.41) 09/07/2024 BMI [...] 03/09/2025 10:15:00 AM, [address] [facility], [address] , [place], [place], [id number], Progress Notes * Darrion COWANDOB:[birth year] (69 yo M)Acc No.[id number]:09/07/2024 Progress Notes Patient: Darrion CONNOR Provider: Cody Estrada M.D. :1955 A ge:68 Y S ex:Male Date:09/07/2024 Address:[address] [facility] [place] [id number] Subjective: * Chief Complaints: * 1 . [...] be faxed to Dr. Theron Monahan in [place]. * ROS: D ERMATOLOGY: no R allan. 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 B NV 26.0-26.9,adult - Z68.26 Plan: * Treatment: Value [...] * Images: Billing Information: * Visit Code: 94931 Office Visit, Est Pt., Level 4. * [...] 0 09/07/2024 Generated for Gregoryi ng/Fajohng/eTransmitting on: 0 12/01/2024 11:08 AM EDT History and Physical Notes * HPI (History of Present Illness) Category Sub-Category Detail Notes Category Not es Endocrinology Recent Blood Sugars Pt here to f /u on DM 2. Pt requesting lab results from today to be faxed to Dr. Theron Monahan in [place] [facility] Blood Pressure Elevated Pt here for 6 mo f/u on hypertension. Pt states he is doing well and does not have any concerns Hyperlipidemia Pt is fasting today Examination Category Sub-Category Detail Notes Category Not es Endocrinology HEENT: unremarkable Heart: RSR Lungs: clear to auscultatio n Extremities: no leg edema General Appearance: NAD
--- OUTSIDE RECORDS SUMMARY | 2024-12-01 11:07 | XMS_ITS | Clinical Summary ---
Author Organization [facility] Address [address] [place] [address] Care Team Providers Care Molder Apprentice Name Role Phone Blu Estrada MD Primary Care Provider + [phone] Allergies No known active allergies Medications modafinil [...] Description 02/08/2025 8:00 AM EST Office Visit [facility] END[facility] [address] [place] [address] Thao Crump MD [address] [place] [address] [place] [address] Health Maintenance Due Date Last Done Comments [...] Hemoglobin A1C 6.4(A) 4.5 - 5.7 % [facility] Lot Number [id number] [facility] Expiration Date [facility] Blood 08/06/2024 8:48 AM EDT Thao Crump MD POINT OF CARE TEST ORDERABLES F inal Result [facility]
[address] [place] [id number], from Last 3 Months or Most Recently Relevant to Health Maintenance Insurance MEDICARE A & B Member Subscriber Plan / Payer (Ef fective 2021-Present) Name:Darrion Cowan Member ID:[id number] Relation to Subscriber:Self Name:Darrion Cowan Subscriber ID:[id number] Payer ID:[id number] Group ID:Not on file Type:Not on file Address[address] Care Teams Molder Apprentice Relationship Specialty Start Date End Date Bul Estrada MD [address] [place] [address] [place] [id number] PCP - General Family Medicine 02/11/23
--- OUTSIDE RECORDS SUMMARY | 2024-12-01 11:08 | XMS_ITS | Clinical Summary ---
Author Organization [facility] Address [address] [place] [address] Care Team Providers Care Victims Advocate Clerk/Specialist Name Role Phone Blu Estrada MD Primary Care Provider [phone] Allergies No known active allergies Medications cholecalciferol [...] Description 09/14/2024 11:00 AM EDT Office Visit [place] [facility] Pain Clinic Orofacial Pain Clinic [facility] Room [address] [place] [address] Jenifer Tejeda DDS [place], Monica R Obstructive sleep apnea (Primary Dx) 09/14/2024 Travel 09/08/[address] [facility] Orofacial Pain Clinic Orofacial Pain Clinic [facility] Room [facility] [address] [place] [address] Clary Valente 09/08/[address] [facility] Orofacial Pain [facility] Orofacial Pain [facility] Room [facility] [address] [place] [address] ModeJames [email or web address] 09/07/2024 Travel from [...] 03/09/2025 2:30 PM EST Office Visit [facility] Orofacial Pain [facility] Orofacial Pain [facility] Room [address] [place] [address] Jenifer Tejeda DDS [address] [address] Clary Valente Health Maintenance Due Date Last [...] 2001 [facility]-Zoster Vaccines (1 of 2) 2006 [id number] Vaccine (3 - season) 2024 02/22/2021, 05/31/2020 [facility]-Influenza Vaccine (#1) 11/22/202402/05, 12/07/2018, 02/27/2018, Additional history exists [facility]-Diabetes: Hemoglobin A1C 08/06/2025, 04/08/2024, 12/19/2023, Additional history exists [facility]-RSV Vaccine: 60+ Years [...] age to complete this topic Insurance MEDICARE Care Teams Victims Advocate Clerk/Specialist Relationship Specialty Start Date End Date Blu Estrada MD [address] [facility] [address] [place] [address] PCP - General 08/09/21
--- OUTSIDE RECORDS SUMMARY | 2024-12-01 11:08 | XMS_ITS | Patient Health Record ---
Author Organization [facility] Address [address] [facility] [address] [facility] [address] ANGIE Guadalupe [id number] Care Team Providers Care Carpet Inspector Name Role Phone Maxi Estradaian Primary Care Provider Allergies No Known Allergies Results Component Value Reference Range Notes P-Comprehensive Metabolic Pa zafar (CMP) Reviewed date:09/09/2024 09:06:30 AM Interpretation:K+ 6.8, gluc 132 Performing Lab: Notes/Report: Test performed by [facility] [address] [place] [address] , [address], [place] [address] Nicolas Skelton MD, Recreation Technician CLIA: [id number] Sodium 138 135-145 mmol/L Potassium 6.8 3.5-5.3 [...] Interpretation:Normal Performing Lab: Notes/Report: Test performed by [facility] [address] [facility] , [address], [place] [address] Nicolas Skelton MD, Recreation Technician MIAH: [id number] Cholesterol 189 <200 mg/dL Triglycerides 114 <150 [...] Interpretation:Normal Performing Lab: Notes/Report: Test performed by [facility] [address] , [place] [address] Nicolas Skelton MD, Recreation Technician CLIA: [id number] PSA 1.55 <4.00 ng/mL Please note this is an ultrasensitive PSA assay with a lower limit of detection of 0.014 ng/mL. This test is performed by the [employer] ECLIA methodology. Values obtained with different assay methods or kits cannot be directly compared. P-TSH reflex to FT4 Reviewed date:09/09/2024 09:06:30 AM Interpretation:Normal Performing Lab: Notes/Report: Test performed by [facility] , [place] [address] Nicolas Skelton MD, Recreation Technician CLIA: [id number] TSH reflex to FT4 1.28 0.43-5.25 mU/L P-Microalbumin/Creatinine, R andom Urine Sample Reviewed date:09/09/2024 09:06:30 AM Interpretation:Normal Performing Lab: Notes/Report: Test performed by [facility] , [address], [place] [address] Nicolas Skelton MD, Recreation Technician CLIA: [id number] Albumin/Creatinine Ratio, Urine 5 0-30 ug/mg Microalbumin, Urine, Random 0.5 Creatinine, Urine 92.1 P-Vitamin D 25-Hydroxy Reviewed date:09/09/2024 09:06:30 AM Interpretation:46.3 Performing Lab: Notes/Report: Test performed by [facility] , [address], [place] [address] Nicolas Skelton MD, Recreation Technician CLIA: [id number] Vitamin D 25-Hydroxy 46.3 30.0-100.0 ng/mL Interpretation of Vitamin D 25 OH: < 20 ng/mL - Deficiency 20 - 29 ng/mL - Insufficiency 30 - 100 ng/mL - Sufficiency > 100 ng/mL - Super-therapeutic- toxicity may occur above this level. Clinical correlation required. H-Potassium Reviewed date:09/09/2024 04:33:42 PM Interpretation: Performing Lab: Notes/Report: K 4.2 3.5-5.1 mmoL/L Reason For Referral No Information Medications Medication SIG (Take, Route, Frequency, Duration) Notes Start Date End Date Status Modafinil 200 MG 1 tablet in the morn ing Orally Once a day Active RELION GLUCOMETER 10/17/2016 A ctive Vitamin D3 125 MCG (5000 UT) 1 cap(s) orally once a day Active CoQ-10 100 MG as directed Orally Active Propranolol HCl ER 160 MG Take 1 capsule by mouth once daily; Duration: 90 Active ReliOn Blood Glucose Test - as directed In Vitro Active Terbinafine HCl 250 MG 1 tablet Orally O nce a day; Duration: 90 days 03/09/2024 Active Jardiance 25 MG 1 tablet Orally Once a day Active Rosuvastatin Calcium 20 MG 1 tab(s) oral ly once a day (at bedtime); Duration: 90 days Active Meloxicam 15 MG 1 tablet Orally once daily; Duration: 90 days Active Rybelsus 7 MG 1 tablet at least 30 minutes before first food, beverage or other oral medicine of the day Orally Once a day 09/05/2022 Active Sildenafil Citrate 20 MG 1 to 5 tab(s) o rally once daily as needed 08/07/2020 Active Lisinopril 10 MG 1 tablet Orally Once a day; Duration: 90 days Active [facility] Lancets Ultra-Thin 30G - as directed Active Modafinil 100 MG 1 tablet in the afte rnoon Orally Once a day Active Primidone 250 MG 1 tablet Orally Two times a day; Duration: 90 days Active Immunizations Vaccine Route Administration [...] Problem Status W/U Status Risk Notes Problem Vitamin D deficiency (12348150) Vitamin D deficiency (E55.9) Active confirmed Problem Essential hypertension (71471005) Essential hypertension (I10) Active confirmed Problem Hypertriglyceridemia (241809928) Hypertriglyceridemia (E78.1) Active confirmed Problem Tremor (56528676) Tremor (R25.1) Active confirm ed Problem Impaired fasting glucose (084113491) Impaired fasting glucose (R73.01) Active confirmed Problem Generalized anxiety disorder (00734967) Generalized anxiety disorder (F41.1) Active confirmed Problem Mixed hyperlipidemia (104504999) Mixed hyperlipidemia (E78.2) Active confirmed Problem Essential tremor (722046729) Essential tremor (G25.0) Active confirmed Problem Erectile dysfunction (disorder) (625031789) Erectile dysfunction, unspecified erectile dysfunction type (N52.9) Active confirmed Problem Obstructive sleep apnea syndrome (22451353) PETER (obstructive sleep apnea) (G47.33) Active confirmed Problem Carpal tunnel syndrome of left wrist (844561795468010) Carpal tunnel syndrome of left wrist (G56.02) Active confirmed Problem Type II diabetes mellitus without complication (303708021) Type 2 diabetes mellitus without complication, without long-term current use of insulin (E11.9) Active confirmed Problem Chronic rhinitis (43321373) Rhinitis, unspecified type (J31.0) Active confirmed Problem Pure hypercholesterolemia (609013517) Pure hypercholesterolemia (E78.00) Active confirmed Problem Lesion of ulnar nerv e (516132573) 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 [address] [id number] 09/07/2024 Blu [place] Essential hypertensi on I10 ; Mixed hyperlipidemia E78.2 ; Hypertriglyceridemia E78.1 ; Vitamin D deficiency E55.9 ; Type 2 diabetes mellitus without complication, without long-term current use of insulin E11.9 ; Prostate cancer screening Z12.5 ; PETER (obstructive sleep apnea) G47.33 ; Type 2 diabetes mellitus with diabetic mononeuropathy, unspecified whether alf insulin use E11.41 and BMI 26.0-26.9,adult Z68.26 [facility] [address] [facility] [address] [id number] 09/09/2024 Blu Estrada Abnormal finding of blood chemistry, unspecified R79.9 Assessments Encounter Date Diagnosis (ICD Code) Assessment Notes Treatment Notes Treatment Clinical Notes Section Notes 03/09/2024 Vitamin D deficiency (ICD-10 - E55.9) [...] angelito itus with diabetic mononeuropathy, unspecified whether alf insulin use (ICD-10 - E11.41) 09/07/2024 BMI 26.0-26.9,adult (ICD-10 - Z68.26) Plan Of Treatment Next Appt Details Provider Name:Blu Hernandez ry, 03/09/2025 10:15:00 AM, [address], [address], [place], [place], [id number], Insurance Providers Payer Name Payer Address Payer Phone Subscriber Number Group Number Insured Name Patient Relationship to Insured Coverage Start Date Coverage End Date MEDICARE PART B [address] [address] ANG[place] Lubin [id number] Darrion Shipley Self - patient is the insured [facility] [address] [place] [address] [id number] Darrion Shipley Self - patient is [...]
--- OUTSIDE RECORDS SUMMARY | 2024-12-01 11:08 | XMS_ITS | Encounter Summary ---
Author Organization Healthcare Address [address] [id number] Care Team Providers Care Java Technical Manager Name Role Phone Blu Estrada MD Primary Care Provider [phone] Reason for Referral * Consultation (Routine) - Closed Specialty Diagnoses / Procedures Referred By Anna layne Referred To Contact Dentist / Pain Medicine Diagnoses Obstructive sleep apnea Mariaa Macdonald MD [address] [place] [address] Phone: tel: fax: Jenifer Tejeda, DDS [address] [facility] [address] [place] [address] Phone: tel: fax: Referral ID Status Reason Start Date Expiration Date Visits Re quested Visits Authorized [id number] Closed 01/12/2024 07/13/2025 1 1 Encounter Details Date Type Department Care Team (Late st Contact Info) Description 01/12/2024 [facility] [address] [place] [address] Mariaa Macdonald MD [address] [facility] [address] [place] [address] Obstructive sleep apnea (Primary Dx) Social [...] Description 03/09/2025 2:30 PM EST Office [facility] [place] [facility] [address] [place] [address] Jenifer Tejeda, DDS [address] [place] [address] Clary Valente Scheduled Referrals Name Type Priority Associated Diagnoses Order Schedule Ambulatory Referral to Orofacial Pain Outpatient Referral Routine Obstructive sleep apnea Expected: 01/12/2024 (Approximate), Expires: 07/12/2025 documented as of this encounter Visit Diagnoses Diagnosis Obstructive sleep apnea- Primary Obstructive sleep apnea (adult) (pediatric) documented in this encounter Care Teams Java Technical Manager Relationship Specialty Start Date End Date Blu Estrada MD [address] [facility] [address] [place] [address] PCP - General 08/09/21 documented as of this encounter
== END ==
LOC: SL 11:05
PROVIDERS: PCP Family Medicine; Visit Provider Specialist
DX: G47.33 Obstructive sleep apnea (adult) (pediatric) (principal); G47.10 Hypersomnia, unspecified; R09.02 Hypoxemia; R00.2 Palpitations
CPT/HCPCS: 94762

== ENCOUNTER → 2025-01-03 20:31 | Outpatient (CLI) | payer MEDICARE, SELFPAY ==
--- OUTSIDE RECORDS SUMMARY | 2023-09-08 05:00 | XMS_ITS ---
Author Organization [facility] Address [address] [facility] [address] [place] [id number] Care Team Providers Care Taffy Puller Name Role Phone Blu Estrada Primary Care Provider Allergies No Known Allergies Results Component Value Reference Range Notes Glucose (In-House) Reviewed date:09/09/2023 09:23:13 AM Interpretation:139 Performing Lab: Notes/Report: 139 blood glucose 139 74 - 106 mg/dL Glycohemoglobin A1c (in hous e) Reviewed date:09/09/2023 09:23:13 AM Interpretation:6.1% Performing Lab: Notes/Report: 6.1% glycohemoglobin 6.1% 5 - 6.5 % P-Comprehensive Metabolic Pa zafar (CMP) Reviewed date:09/09/2023 09:23:13 AM Interpretation:gluc 147 Performing Lab: Notes/Report: CLIA: [id number] Nicolas Skelton MD, [facility] [address] [facility] , [address], [place] [address] Test performed by [facility], [employer] Sodium 142 135-145 mEq/L Potassium 4.2 3.5-5.3 mEq/L Chloride 102 97-108 mEq/L CO2 27 22-32 mEq/L Glucose 147 65-99 mg/dL BUN 17 8-23 mg/dL Creatinine 1.05 0.70-1.30 mg/dL Calcium 9.8 8.6-10.4 mg/dL eGFR by Creatinine 78 >59 mL/min/1.73m2 Protein 6.7 6.0-8.3 g/dL Albumin 4.7 3.5-5.3 g/dL Alkaline Phosphatase 73 40-129 IU/L ALT (SGPT) 26 <5-55 IU/L AST (SGOT) 22 <5-46 IU/L Bilirubin, Total 0.2 <0.2-1.2 mg/dL A/G Ratio 2.4 1.1-2.5 mg/dL P-Lipid Panel Reviewed date:09/09/2023 09:23:13 AM Interpretation:Normal Performing Lab: Notes/Report: Test performed by [facility], [address] , [place] [address] Nicolas Skelton MD, [employer] CLIA: [id number] Cholesterol 171 <200 mg/dL Triglycerides 121 <150 mg/dL HDL Cholesterol 56 >39 mg/dL Cholesterol / HDL Ratio 3.05 0.00-4.99 Ratio Non-HDL Cholesterol 115 <130 mg/dL LDL Cholesterol (Calculation) 91 <130 mg/dL LDL Cholesterol Levels* Less than 100 mg/dL Optimal 100 to 129 mg/dL Near Optimal/ Above Optimal 130 to 159 mg/dL Borderline High 160 to 189 mg/dL High 190 mg/dL and above Very High * Categories as recommended by the 2004 ATPIII guidelines LDL/HDL Ratio 1.6 <3.3 Ratio LDL Cholesterol Patient History Test Date: 09/08/2023 LDL Results: 91 Units: mg/dL % Change: - P-PSA Reviewed date:09/09/2023 09:23:13 AM Interpretation:Normal Performing Lab: Notes/Report: Test performed by [facility] [address] [place] [address] , [place] [address] Nicolas Skelton MD, [employer] CLIA: [id number] PSA 1.54 <4.00 ng/mL Please note this is an ultrasensitive PSA assay with a lower limit of detection of 0.014 ng/mL. This test is performed by the Bert ECLIA methodology. Values obtained with different assay methods or kits cannot be directly compared. P-TSH reflex to FT4 Reviewed date:09/09/2023 09:23:13 AM Interpretation:Normal Performing Lab: Notes/Report: Test performed by [facility] [address] [place] [address] , [place] [address] Nicolas Skelton MD, [employer] CLIA: [id number] TSH reflex to FT4 1.54 0.43-5.25 mU/L P-Microalbumin/Creatinine, R andom Urine Sample Reviewed date:09/09/2023 09:23:13 AM Interpretation:satisfactory Performing Lab: Notes/Report: Test performed by [facility] [address] [place] [address] , [address], [place] [address] Nicolas Skelton MD, [employer] CLIA: [id number] Albumin/Creatinine Ratio, Urine See Comment 0-30 ug/mg Unable to calculate Urine Albumin/Creatinine Ratio when urine creatinine or urine albumin fall outside established reportable range. Microalbumin, Urine, Random <0.3 Creatinine, Urine 101.5 P-Vitamin D 25-Hydroxy Reviewed date:09/09/2023 09:23:13 AM Interpretation:Normal Performing Lab: Notes/Report: Test performed by [facility] [address] [place] [address] , [address], [place] [address] Nicolas Skelton MD, [employer] CLIA: [id number] Vitamin D 25-Hydroxy 52.3 30.0-100.0 ng/mL Interpretation of Vitamin D 25 OH: < 20 ng/mL - Deficiency 20 - 29 ng/mL - Insufficiency 30 - 100 ng/mL - Sufficiency > 100 ng/mL - Super-therapeutic- toxicity may occur above this level. Clinical correlation required. REASON FOR VISIT 6 month check Medications Medication SIG (Take, Route, Frequency, Duration) Notes Start Date End Date Status Propranolol HCl ER 160 MG Take 1 capsule by mouth once daily Active Rosuvastatin Calcium 20 MG 1 tab(s) orally once a day (at bedtime) Active Rybelsus 7 MG 1 tablet at least 30 minutes before first food, beverage or other oral medicine of the day Orally Once a day 09/05/2022 Active Synjardy XR 12.5-1000 MG Take 2 tablets by mouth once daily Active ALPRAZolam 0.5 MG 1 tab(s) orally ever y 12 hours as needed 12/04/2015 Not-Taking Sildenafil Citrate 20 MG 1 to 5 tab(s) o rally once daily as needed 08/07/2020 Active RELION GLUCOMETER 10/17/2016 A ctive Meloxicam 15 MG Take 1 tablet by abrahan th once daily; Duration: 90 Active Primidone 250 MG Take 1 tablet by abrahan th twice daily for 90 days; Duration: 90 days Active Lisinopril 10 MG 1 tablet Orally Once a day; Duration: 90 days 09/08/2023 Active Vitamin D3 125 MCG (5000 UT) 1 cap(s) orally once a day Active CoQ-10 100 MG as directed Orally Active ReliOn Blood Glucose Test - as directed In Vitro Active Terbinafine HCl 250 MG 1 tablet Orally O nce a day; Duration: 90 days 09/08/2023 Active Modafinil 100 MG 1 tab(s) Orally Two times a day Active ReliOn Lancets Ultra-Thin 30G - as directed Active Vital Signs Blood pressure systolic 116 mm Hg 09/08/19 24 Blood pressure diastolic 78 mm Hg 024 Heart Rate 67 /min 09/08/2023 Height 69.50 in 09/08/2023 Weight 179 lbs 09/08/2023 BMI 26.05 kg/m2 09/08/2023 Encounters Encounter Location Date Provider Diagnosis [facility] [address] [facility] [address] [place] [address], [place] [id number] 09/08/2023 Blu Estrada Type 2 diabetes angelito itus without complication, without long-term current use of insulin E11.9 ; Essential hypertension I10 ; Mixed hyperlipidemia E78.2 ; Hypertriglyceridemia E78.1 ; Essential tremor G25.0 ; Vitamin D deficiency E55.9 ; Prostate cancer screening Z12.5 and Onychomycosis B35.1 Assessments Encounter Date Diagnosis (ICD Code) Assessment Notes Treatment Notes Treatment Clinical Notes Section Notes 09/08/2023 Type 2 diabetes angelito itus without complication, without long-term current use of insulin (ICD-10 - E11.9) Patient seems t be having side effects to Rybelsus. He does not want to change medication at this time 09/08/2023 Essential hypertensi on (ICD-10 - I10) 09/08/2023 Mixed hyperlipidemia (ICD-10 - E78.2) 09/08/2023 Hypertriglyceridemia (ICD-10 - E78.1) 09/08/2023 Essential tremor (IC D-10 - G25.0) 09/08/2023 Vitamin D deficiency (ICD-10 - E55.9) 09/08/2023 Prostate cancer screening (ICD-10 - Z12.5) 09/08/2023 Onychomycosis (ICD-1 0 - B35.1) Plan Of Treatment Medication Medication Name Sig Start Date Stop Date Notes Propranolol HCl ER 160 MG Take 1 capsule by mouth once daily Rosuvastatin Calcium 20 MG 1 tab(s) oral ly once a day (at bedtime) Rybelsus 7 MG 1 tablet at least 30 minutes before first food, beverage or other oral medicine of the day Orally Once a day 09/05/2022 Synjardy XR 12.5-1000 MG Take 2 tablets by mouth once daily Lisinopril 10 MG 1 tablet Orally Once a day; Duration: 90 days 09/08/2023 Lisinopril-hydroCHLOROthiazi de 10-12.5 MG 1 tab(s) orally once a day Terbinafine HCl 250 MG 1 tablet Orally O nce a day; Duration: 90 days 09/08/2023 Treatment Notes Assessment Notes Type 2 diabetes mellitus wit hout complication, without long-term current use of insulin Patient seems t be having side effects t o Rybelsus. He does not want to change medication at this time Next Appt Details Follow Up: 6 Months, Reason: Provider Name:Blu allen, 03/09/2025 10:15:00 AM, [address], [address], [place], [id number], Progress Notes * Darrion COWANDOB:[birth year] (69 yo M)Acc No.[id number]:09/08/2023 Progress Notes Patient: Darrion CONNOR Provider: Cody Estrada M.D. :1955 A ge:67 Y S ex:Male Date:09/08/2023 Address:[address] [facility] [address] [id number] Subjective: * Chief Complaints: * 1 . 6 month check. * HPI: E ndocrinology: Maintenance P t presents today for a 6 month check up. Pt is fasting today. G astroenterology: c/o Diarrhea. c/o Constipation P t sts that for the last 3 months he has had issues with constipation and diarrhea. Pt sts that he does not have regular bowel movements anymore. Pt sts that he either cannot go or he cannot make it to the rest room in time. Pt sts that he was having issues with diarrhea especially bad when he would eat salad but he sts that he has stopped eating as much leafy greens and it has helped some but sts that his stomach issues have not fully resolved. * ROS: C ARDIOLOGY: no D izziness. n o C hest pain. D ERMATOLOGY: no R allan. n o H lilly. U ROLOGY: no D ifficulty urinating. n o B lood in urine. * Medical History: T ype 2 Diabetes, Allergic Rhinitis, Anxiety disorder, Father had prostate cancer in his 50's, sleep apnea, Dx: 2013, Tremor, Hypertension, Hyperlipidemia, Hypertriglyceridemia, Carpal tunnel syndrome, Diverticulosis. * Surgical History: V asectomy , Colonoscopy 2008, Colonoscopy 2020, LT Carpal Tunnel Release 2021, LT Ulnar Nerve Release 2021. * Family History: F ather: , prostate cancer, diagnosed with Cancer. M other: alive. 2 brother(s) - healthy. 2 daughter(s) - healthy. . * Social History: C URRENT TOBACCO USE S moking Status: Patient does NOT smoke. C affeine: yes, frequency: 4 cups a day. Exercise: no. Marital Status: . Past smoking status: no. Alcohol: Yes, occasional. Sexually active: yes. * Medications: T aking Modafinil 100 MG Tablet 1 tab(s) Orally Two times a day , Taking ReliOn Lancets Ultra-Thin 30G - Miscellaneous as directed , Taking ReliOn Blood Glucose Test - Strip as directed In Vitro , Taking CoQ-10 100 MG Capsule as directed Orally , Taking Vitamin D3 125 MCG (5000 UT) Capsule 1 cap(s) orally once a day , Taking RELION GLUCOMETER , Taking Sildenafil Citrate 20 MG Tablet 1 to 5 tab(s) orally once daily as needed , Taking Rybelsus 7 MG Tablet 1 tablet at least 30 minutes before first food, beverage or other oral medicine of the day Orally Once a day , Taking Primidone 250 MG Tablet Take 1 tablet by mouth twice daily for 90 days , Taking Propranolol HCl ER 160 MG Capsule Extended Release 24 Hour Take 1 capsule by mouth once daily , Taking Lisinopril-hydroCHLOROthiazide 10-12.5 MG Tablet 1 tab(s) orally once a day , Taking Meloxicam 15 MG Tablet Take 1 tablet by mouth once daily , Taking Rosuvastatin Calcium 20 MG Tablet 1 tab(s) orally once a day (at bedtime) , Taking Synjardy XR 12.5-1000 MG Tablet Extended Release 24 Hour Take 2 tablets by mouth once daily , Not-Taking ALPRAZolam 0.5 MG Tablet 1 tab(s) orally every 12 hours as needed , Discontinued levoFLOXacin 500 MG Tablet 1 tablet Orally Once a day , Medication List reviewed and reconciled with the patient * Allergies: N .K.D.A. Objective: * Vitals: W t:179, Temp:97.9, BP:116/78, HR:67, Nurse:ANILA, Ht: 69.50, BMI:26.05. * Examination: E ndocrinology: General Appearance: N AD. H EENT: u nremarkable.?Neck, Thyroid : n o lymphadenopathy. T hyroid exam: n o enlargement. H eart: R SR. L ungs: c lear to auscultation. E xtremities: n o leg edema. S kin: g reat toenails thickened and discolored yellow, left more than right. Assessment: * Assessment: 1. T ype 2 diabetes mellitus without complication, without long-term current use of insulin - E11.9 (Primary) 2 . E ssential hypertension - I10 3 . M ixed hyperlipidemia - E78.2 4 . H ypertriglyceridemia - E78.1 5 . Essential tremor - G25.0 6 . V itamin D deficiency - E55.9 7 .?Prostate cancer screening - Z12.5 8 . O nychomycosis - B35.1 ? Plan: * Treatment: Value Reference Range A /G Ratio 2.4 1.1-2.5 - mg/dL * A lbumin 4.7 3.5-5.3 - g/dL * A lkaline Phosphatase 73 40-129 - IU/L * A LT (SGPT) 26 <5-55 - IU/L * A ST (SGOT) 22 <5-46 - IU/L * B ilirubin, Total 0.2 <0.2-1.2 - mg/dL * B UN 17 8-23 - mg/dL * C alcium 9.8 8.6-10.4 - mg/dL * C hloride 102 97-108 - mEq/L * C O2 27 22-32 - mEq/L * C reatinine 1.05 0.70-1.30 - mg/dL * G lucose 147 H 65-99 - mg/dL * P otassium 4.2 3.5-5.3 - mEq/L * S odium 142 135-145 - mEq/L * P rotein 6.7 6.0-8.3 - g/dL * e GFR by Creatinine 78 >59 - mL/min/1.73m2 * Shabana Martínez 09/09/2023 9:23: 08 AM >See phone encounter ?LAB: P-TSH reflex to FT4 (Collection Date & Time - 09/08/2023 08:30 AM)? Normal* Value Reference Range T SH reflex to FT4 1.54 0.43-5.25 - mU/L * Shabana Martínez 09/09/2023 9:23: 08 AM >See phone encounter ?LAB: P-Microalbumin/Creatinine, Random Urine Sample (Collection Date & Time - 09/08/2023 08:30 AM)?satisfactory* Value Reference Range A lbumin/Creatinine Ratio, Urine See Comment L 0-30 - ug /mg * C reatinine, Urine 101.5 - mg/dL * M icroalbumin, Urine, Random <0.3 - mg/dL * Shabana Martínez 09/09/2023 9:23: 08 AM >See phone encounter ?LAB: Glucose (In-House) (Collection Date & Time - 09/08/2023)?139* Value Reference Range b lood glucose 139 74 - 106 mg/dL * VinicioIvelisse 09/08/2023 9:43 :32 AM > Shabana Martínez 09/09/2023 9:23:08 AM >See phone encounter ?LAB: Glycohemoglobin A1c (in house) (Collection Date & Time - 09/08/2023)? 6.1%* Value Reference Range g lycohemoglobin 6.1% 5 - 6.5 % * Ivelisse Mooney 09/08/2023 9:43 :54 AM > Shabana Martínez 09/09/2023 9:23:08 AM >See phone encounter Notes: Patient seems t be having side effects to Rybelsus. He does not want to change medication atthis time??2.?Essential hypertension? Stop Lisinopril-hydroCHLOROthiazide Tablet, 10-12.5 MG, 1 tab(s), orally, once a day;?Start Lisinopril Tablet, 10 MG, 1 tablet, Orally, Once a day, 90 days, 90 Tablet, Refills 1.?LAB: P-Comprehensive Metabolic Panel (CMP) (Collection Date & Time - 09/08/2023 08:30 AM)?gluc 147* Value Reference Range A /G Ratio 2.4 1.1-2.5 - mg/dL * A lbumin 4.7 3.5-5.3 - g/dL * A lkaline Phosphatase 73 40-129 - IU/L * A LT (SGPT) 26 <5-55 - IU/L * A ST (SGOT) 22 <5-46 - IU/L * B ilirubin, Total 0.2 <0.2-1.2 - mg/dL * B UN 17 8-23 - mg/dL * C alcium 9.8 8.6-10.4 - mg/dL * C hloride 102 97-108 - mEq/L * C O2 27 22-32 - mEq/L * C reatinine 1.05 0.70-1.30 - mg/dL * G lucose 147 H 65-99 - mg/dL * P otassium 4.2 3.5-5.3 - mEq/L * S odium 142 135-145 - mEq/L * P rotein 6.7 6.0-8.3 - g/dL * e GFR by Creatinine 78 >59 - mL/min/1.73m2 * Shabana Martínez 09/09/2023 9:23: 08 AM >See phone encounter 3.?Mixed hyperlipidemia? Continue Rosuvastatin Calcium Tablet, 20 MG, 1 tab(s), orally, once a day (at bedtime).?LAB: P-Comprehensive Metabolic Panel (CMP) (Collection Date & Time - 09/08/2023 08:30 AM)?gluc 147* Value Reference Range A /G Ratio 2.4 1.1-2.5 - mg/dL * A lbumin 4.7 3.5-5.3 - g/dL * A lkaline Phosphatase 73 40-129 - IU/L * A LT (SGPT) 26 <5-55 - IU/L * A ST (SGOT) 22 <5-46 - IU/L * B ilirubin, Total 0.2 <0.2-1.2 - mg/dL * B UN 17 8-23 - mg/dL * C alcium 9.8 8.6-10.4 - mg/dL * C hloride 102 97-108 - mEq/L * C O2 27 22-32 - mEq/L * C reatinine 1.05 0.70-1.30 - mg/dL * G lucose 147 H 65-99 - mg/dL * P otassium 4.2 3.5-5.3 - mEq/L * S odium 142 135-145 - mEq/L * P rotein 6.7 6.0-8.3 - g/dL * e GFR by Creatinine 78 >59 - mL/min/1.73m2 * Shabana Martínez 09/09/2023 9:23: 08 AM >See phone encounter ?LAB: P-Lipid Panel (Collection Date & Time - 09/08/2023 08:30 AM)?Normal* Value Reference Range C holesterol / HDL Ratio 3.05 0.00-4.99 - Ratio * C holesterol 171 <200 - mg/dL * H DL Cholesterol 56 >39 - mg/dL * L DL Cholesterol (Calculation) 91 <130 - mg/d L * L DL/HDL Ratio 1.6 <3.3 - Ratio * N on-HDL Cholesterol 115 <130 - mg/dL * T riglycerides 121 <150 - mg/dL * Shabana Martínez 09/09/2023 9:23: 08 AM >See phone encounter 4.?Essential tremor? Continue Propranolol HCl ER Capsule Extended Release 24 Hour, 160 MG, Take 1 capsule by mouth once daily.??5.?Vitamin D deficiency?LAB: P-Vitamin D 25-Hydroxy (Collection Date & Time - 09/08/2023 08:30 AM)? Normal* Value Reference Range V itamin D 25-Hydroxy 52.3 30.0-100.0 - ng/mL * Shabana Martínez 09/09/2023 9:23: 08 AM >See phone encounter 6.?Prostate cancer screening?LAB: P-PSA (Collection Date & Time - 09/08/2023 08:30 AM)?Normal* Value Reference Range P SA 1.54 <4.00 - ng/mL * TanyaShabana 09/09/2023 9:23: 08 AM >See phone encounter 7.?Onychomycosis? Start Terbinafine HCl Tablet, 250 MG, 1 tablet, Orally, Once a day, 90 days, 90 Tablet, Refills 0. ? * Procedure Codes: G 2211 Complex e/[place], [address] GLUCOSE TEST, 33058 GLYCATED HEMOGLOBIN TEST, Modifiers: QW * Follow Up: 6 Months * Images: Billing Information: * Visit Code: 58569 Office Visit, Est Pt., Level 4. * Procedure Codes: G2211 Complex e/[place]. [address] GLUCOSE TEST. 45002 GLYCATED HEMOGLOBIN TEST. Modifiers: QW * Electronic signature of Cyn Estrada MD on 01/03/2025 at 08:35 PM EDT Sign off status: Pending * Provider: Cody Estrada M.D. Date: 0 09/08/2023 Generated for Mayco almaraz/Barbara/Cynthia on: 1 08:35 PM EDT History and Physical Notes * HPI (History of Present Illness) Category Sub-Category Detail Notes Category Not es [facility]. Pt is fasting today Gastroenterology Diarrhea Constipation Pt sts that for the last 3 months he has had issues with constipation and diarrhea. Pt sts that he does not have regular bowel movements anymore. Pt sts that he either cannot go or he cannot make it to the rest room in time. Pt sts that he was having issues with diarrhea especially bad when he would eat salad but he sts that he has stopped eating as much leafy greens and it has helped some but sts that his stomach issues have not fully resolved Examination Category Sub-Category Detail Notes Category Not es Endocrinology HEENT: unremarkable Neck, Thyroid : no lymphadenopathy Heart: RSR Lungs: clear to auscultatio n Extremities: no leg edema General Appearance: NAD Skin: great toenails thick ened and discolored yellow, left more than right Thyroid exam: no enlargement
--- OUTSIDE RECORDS SUMMARY | 2023-09-22 10:45 | XMS_ITS ---
Author Organization [facility] Address [address] [place] [id number] Care Team Providers Care Enamel Drier Name Role Phone Blu Estrada Primary Care Provider [phone] Allergies No Known Allergies Results Component Value Reference Range Notes CBC Fingerstick (in house) Reviewed date:09/22/2023 04:13:39 PM Interpretation: Performing Lab: Notes/Report: wbc 8.1 3.5 - 10 lym 21.4% 15 - 50 mid 5.6% 2 - 15 gran 73.0% 35 - 80 rbc 4.99 3.5 - 5.5 hgb 16.0 11.5 - 16.5 hct 48.6 35 - 55 mcv 97.3 75 - 100 mch 32.1 25 - 35 mchc 32.9 31 - 38 plat 251 100 - 400 REASON FOR VISIT cold, congestion Medications Medication SIG (Take, Route, Frequency, Duration) Notes Start Date End Date Status Modafinil 100 MG 1 tab(s) Orally Two times a day Active Propranolol HCl ER 160 MG Take 1 capsule by mouth once daily Active Rosuvastatin Calcium 20 MG 1 tab(s) oral ly once a day (at bedtime) Active Primidone 250 MG Take 1 tablet by abrahan th twice daily for 90 days; Duration: 90 days Active Lisinopril 10 MG 1 tablet Orally Once a day; Duration: 90 days 09/08/2023 Active Rybelsus 7 MG 1 tablet at least 30 minutes before first food, beverage or other oral medicine of the day Orally Once a day 09/05/2022 Active Synjardy XR 12.5-1000 MG Take 2 tablets by mouth once daily Active Terbinafine HCl 250 MG 1 tablet Orally O nce a day; Duration: 90 days 09/08/2023 Active Meloxicam 15 MG Take 1 tablet by abrahan th once daily; Duration: 90 Active Vitamin D3 125 MCG (5000 UT) 1 cap(s) orally once a day Active CoQ-10 100 MG as directed Orally Active Sildenafil Citrate 20 MG 1 to 5 tab(s) o rally once daily as needed 08/07/2020 Active RELION GLUCOMETER 10/17/2016 A ctive Cefdinir 300 MG 1 cap(s) Orally Two times a day; Duration: 7 days 09/22/2023 Active ReliOn Blood Glucose Test - as directed In Vitro Active ReliOn Lancets Ultra-Thin 30G - as directed Active Vital Signs Blood pressure systolic 120 mm Hg 09/22/19 24 Blood pressure diastolic 74 mm Hg 024 Heart Rate 67 /min 09/22/2023 Height 69.50 in 09/22/2023 Weight 180.2 lbs 09/22/2023 BMI 26.23 kg/m2 09/22/2023 Encounters Encounter Location Date Provider Diagnosis [facility] [address] [facility] [address] [facility] [address] [place] [id number] 09/22/2023 Bul Estrada Acute URI J06.9 Assessments Encounter Date Diagnosis (ICD Code) Assessment Notes Treatment Notes Treatment Clinical Notes Section Notes 09/22/2023 Acute URI (ICD-10 - J06.9) Plan Of Treatment Medication Medication Name Sig Start Date Stop Date Notes Cefdinir 300 MG 1 cap(s) Orally Two times a day; Duration: 7 days 09/22/2023 Next Appt Details Follow Up: prn, Reason: Provider Name:Blu Hernandez ry, 03/09/2025 10:15:00 AM, [address] [facility] 36 [facility], [address], [place], [id number], Progress Notes * Darrion COWANDOB:09/22 (69 yo M)Acc No.[id number]:09/22/2023 Progress Notes Patient: Darrion CONNOR Provider: Cody Estrada M.D. :1955 A ge:67 Y S ex:Male Date:09/22/2023 Address:[address] [place] [address] [place], [id number] Subjective: * Chief Complaints: * 1 . Cold, congestion. * HPI: E NT/respiratory: 67 year old male presents with c/o cough P t complains of small amount of white sputum cough for about a week. Associated with chest tightness, nasal congestion and wheezing. Pt states he did have low grade fever a couple days ago but that has improved. * ROS: D ERMATOLOGY: no R allan. n o H lilly. G ASTROENTEROLOGY: no N ausea. n o V omiting. U ROLOGY: no D ifficulty urinating. n o B lood in urine. * Medical History: T ype 2 Diabetes, Allergic Rhinitis, Anxiety disorder, Father had prostate cancer in his 50's, sleep apnea, Dx: 2013, Tremor, Hypertension, Hyperlipidemia, Hypertriglyceridemia, Carpal tunnel syndrome, Diverticulosis. * Surgical History: V asectomy , Colonoscopy 2008, Colonoscopy 2020, LT Carpal Tunnel Release 2021, LT Ulnar Nerve Release 2021. * Hospitalization/Major Diagno stic Procedure: D enies Past Hospitalization. * Family History: F ather: , prostate [...] orally once daily as needed , Taking Meloxicam 15 MG Tablet Take 1 tablet by mouth once daily , Taking Terbinafine HCl 250 MG Tablet 1 tablet Orally Once a day , Taking Lisinopril 10 MG Tablet 1 tablet Orally Once a day , Taking Synjardy XR 12.5-1000 MG Tablet Extended Release 24 Hour Take 2 tablets by mouth once daily , Taking Rybelsus 7 MG Tablet 1 tablet at least 30 minutes before first food, beverage or other oral medicine of the day Orally Once a day , Taking Rosuvastatin Calcium 20 MG Tablet 1 tab(s) orally once a day (at bedtime) , Taking Propranolol HCl ER 160 MG Capsule Extended Release 24 Hour Take 1 capsule by mouth once daily , Taking Primidone 250 MG Tablet Take 1 tablet by mouth twice daily for 90 days , Discontinued ALPRAZolam 0.5 MG Tablet 1 tab(s) orally every 12 hours as needed , Medication List reviewed and reconciled with the patient * Allergies: N .K.D.A. Objective: * Vitals: W t:180.2, Temp:97.1, BP:120/74, HR:67, O2 Sat:94% on RA, Nurse:lanie, Ht: 69.50, BMI:26.23. * Examination: E NT/Respiratory: General Appearance: N AD. E yes: P ERRLA, sclera clear. E ars: a uditory canals normal bilaterally, TM's WNL. O ral cavity : erythema without exudate on pharynx. N jose angel : Shotty, nontender adenopathy. H eart : R RR, normal S1 S2. L ungs: c lear to auscultation bilaterally. Assessment: * Assessment: 1. Nishant dean URI - J06.9 (Primary) Plan: * Treatment: Value Reference Range w bc 8.1 3.5 - 10 * l ym 21.4% 15 - 50 * m id 5.6% 2 - 15 * g ran 73.0% 35 - 80 * r bc 4.99 3.5 - 5.5 * h gb 16.0 11.5 - 16.5 * h ct 48.6 35 - 55 * m cv 97.3 75 - 100 * m ch 32.1 25 - 35 * m chc 32.9 31 - 38 * p lat 251 100 - 400 * Lisa De La Garza 09/22/2023 3:28:07 PM > , Provider reviewed results while patient in office. * Procedure Codes: 3 6416 CAPILLARY BLOOD DRAW, [address] [place], [address] CBC WITH AUTO DIFF, G2211 Complex e/m visit add on * Follow Up: p rn * Images: Billing Information: * Visit Code: 58137 Office Visit, Est Pt., Level 3. * Procedure Codes: 78318 CAPILL[place]. [address] [place]. [address] CBC WITH AUTO DIFF. G2211 Complex e/m visit add on. * Electronic signature of Cyn Estrada MD on 01/03/2025 at 08:34 PM EDT Sign off status: Pending * Provider: Cody Estrada M.D. Date: 0 09/22/2023 Generated for Mayco almaraz/Barbara/eTransmitting on: 1 08:34 PM EDT History and Physical Notes * HPI (History of Present Illness) Category Sub-Category Detail Notes Category Not es ENT/respiratory cough Pt complains of small amount of white sputum cough for about a week. Associated with chest tightness, nasal congestion and wheezing. Pt states he did have low grade fever a couple days ago but that has improved Examination Category Sub-Category Detail Notes Category Not es ENT/Respiratory Oral cavity : erythema without exudate on pharynx Ears: auditory canals norm al bilaterally, TM's WNL Neck : Shotty, nontender ad enopathy Heart : RRR, normal S1 S2 Lungs: clear to auscultatio n bilaterally General Appearance: NAD Eyes: PERRLA, sclera clear
--- OUTSIDE RECORDS SUMMARY | 2024-03-09 05:00 | XMS_ITS ---
Author [facility] Address [address] [place] [phone] Care Team Providers Care Die Casting Machine Setter Name Role Phone Blu Estrada Primary Care [...] Meloxicam 15 MG 1 tablet Orally once daily; Duration: 90 days Active ReliOn Blood Glucose Test - as directed In Vitro Active ReliOn Lancets Ultra-Thin 30G - as directed Active Terbinafine HCl 250 MG 1 tablet Orally O nce a day; Duration: 90 days 03/09/2024 Active CoQ-10 100 MG as directed Orally Active Propranolol HCl ER 160 MG 1 capsule Oral ly Once a day; Duration: 90 days Active Rosuvastatin Calcium 20 MG 1 tab(s) oral ly once a day (at bedtime); Duration: 90 days Active Modafinil 100 MG 1 tab(s) Orally Two times a day Active Primidone 250 MG 1 tablet Orally Two times a day; Duration: 90 days Active Lisinopril 10 MG [...] 03/09/2024 Encounters Encounter Location Date Provider Diagnosis [facility] [address] [place] [phone] 03/09/2024 Blu Estrada Essential hypertensi on I10 [...] Meloxicam 15 MG 1 tablet Orally once daily; Duration: 90 days Terbinafine HCl 250 MG 1 tablet Orally O nce a day; Duration: 90 days 03/09/2024 Propranolol HCl ER 160 MG 1 capsule Oral ly Once a day; Duration: 90 days Rosuvastatin Calcium 20 MG 1 tab(s) oral ly once a day (at bedtime); Duration: 90 days Primidone 250 MG 1 tablet Orally Two times a day; Duration: 90 days Lisinopril 10 MG 1 tablet Orally Once a day Next Appt Details Follow Up: 6 Months, Reason: Provider Name:Blu Hernandez ry, 03/09/2025 10:15:00 AM, [address] [facility], [address], [place], [id number], Progress Notes * Darrion COWAN:[birth year] (69 yo M)Acc No.[id number]:03/09/2024 Progress Notes Patient: Darrion CONNOR Provider: Cody Estrada M.D. :1955 A ge:68 Y S ex:Male Date:03/09/2024 Address:[address] [place] [address] [id number] Subjective: * Chief Complaints: * 1 . [...] E ndocrinology: General Appearance: N AD. H eart: R SR. L ungs:?clear to auscultation. E xtremities: n o leg edema. S kin: l eft great toenail thickened and crumbling distally. Assessment: * Assessment: 1. E ssential hypertension [...] on * Follow Up: 6 Months * Images: Billing Information: * Visit Code: 78726 Office Visit, Est Pt., Level 4. * Procedure Codes: G2211 Complex e/m visit add on. * Electronic signature of Cyn Estrada MD on 01/03/2025 at 08:35 PM EDT Sign off status: Pending * Provider: Cody Estrada M.D. Date: 1 05/10/2023 Generated for Mayco almaraz/Barbara/Cynthia on: 1 08:35 [...]
--- OUTSIDE RECORDS SUMMARY | 2024-09-07 05:30 | XMS_ITS ---
Author Organization [facility] Address [address] [facility] [address] [place] [id number] Care Team Providers Care Dimension Specification Inspector Name Role Phone Maxi Estradaian Primary Care Provider [phone] Allergies No Known Allergies Results Component Value Reference Range Notes P-Comprehensive Metabolic Pa zafar (CMP) Reviewed date:09/09/2024 09:06:30 AM Interpretation:K+ 6.8, gluc 132 Performing Lab: Notes/Report: Test performed by [facility], [facility] [address] [place] [address] , [address], [place] [address] Nicolas Skelton MD, Scrap Metal Processing Worker CLIA: [id number] Sodium 138 135-145 mmol/L Potassium 6.8 3.5-5.3 [...] Interpretation:Normal Performing Lab: Notes/Report: Test performed by [facility], [place] [address] [facility] [address], [place] [address] Nicolas Skelton MD, Scrap Metal Processing Worker CLIA: [id number] Cholesterol 189 <200 mg/dL Triglycerides 114 <150 [...] Interpretation:Normal Performing Lab: Notes/Report: Test performed by [facility] [address] , [place] [address] Nicolas Skelton MD, Scrap Metal Processing Worker CLIA: [id number] PSA 1.55 <4.00 ng/mL Please note this is an ultrasensitive PSA assay with a lower limit of detection of 0.014 ng/mL. This test is performed by the Bert ECLIA methodology. Values obtained with different assay methods or kits cannot be directly compared. P-TSH reflex to FT4 Reviewed date:09/09/2024 09:06:30 AM Interpretation:Normal Performing Lab: Notes/Report: Test performed by [facility] [address] , [place] [address] Nicolas Skelton MD, Scrap Metal Processing Worker CLIA: [id number] TSH reflex to FT4 1.28 0.43-5.25 mU/L P-Microalbumin/Creatinine, R andom Urine Sample Reviewed date:09/09/2024 09:06:30 AM Interpretation:Normal Performing Lab: Notes/Report: Test performed by [facility] [employer] [address] , [place] [address] Nicolas Skelton MD, Scrap Metal Processing Worker CLIA: [id number] Albumin/Creatinine Ratio, Urine 5 0-30 ug/mg Microalbumin, Urine, Random 0.5 Creatinine, Urine 92.1 P-Vitamin D 25-Hydroxy Reviewed date:09/09/2024 09:06:30 AM Interpretation:46.3 Performing Lab: Notes/Report: Test performed by [facility] [employer] [address] , [place] [address] Nicolas Skelton MD, Scrap Metal Processing Worker CLIA: [id number] Vitamin D 25-Hydroxy 46.3 30.0-100.0 ng/mL Interpretation [...] Orally Once a day; Duration: 90 days Active Meloxicam 15 MG 1 tablet Orally once daily; Duration: 90 days Active Primidone 250 MG 1 tablet Orally Two times a day; Duration: 90 days Active Terbinafine HCl 250 MG 1 tablet Orally O nce a day; Duration: 90 days 03/09/2024 Active Jardiance 25 MG 1 tablet Orally Once a day Active Propranolol HCl ER 160 MG 1 capsule Oral ly Once a day; Duration: 90 days Active Rosuvastatin Calcium 20 MG 1 tab(s) oral ly once a day (at bedtime); Duration: 90 days Active Rybelsus 7 MG 1 [...] Problem Status W/U Status Risk Notes Problem Obstructive sleep apnea syndrome ([id number]) PETER (obstructiv e sleep apnea) (G47.33) Active confirmed Vital Signs Blood pressure systolic 124 mm Hg 09/08/19 25 Blood pressure diastolic 70 mm Hg 025 Heart Rate 75 /min 09/07/2024 Height 69.50 in 09/07/2024 Weight 178.8 lbs 09/07/2024 BMI 26.02 kg/m2 09/07/2024 Encounters Encounter Location Date Provider Diagnosis [facility] [address] [place], [place] [id number] 09/07/2024 Blu [place] Essential hypertensi on I10 ; Mixed hyperlipidemia E78.2 ; Hypertriglyceridemia E78.1 ; Vitamin D deficiency E55.9 ; Type 2 diabetes mellitus without complication, without long-term current use of insulin E11.9 ; Prostate cancer screening Z12.5 ; PETER (obstructive sleep apnea) G47.33 ; Type 2 diabetes mellitus with diabetic mononeuropathy, unspecified whether shelter insulin use E11.41 and BMI 26.0-26.9,adult Z68.26 Assessments Encounter Date Diagnosis (ICD Code) Assessment [...] G47.33) Doing well with mandibular advancment device 09/07/2024 Type 2 diabetes angelito itus with diabetic mononeuropathy, unspecified whether shelter insulin use (ICD-10 - E11.41) 09/07/2024 BMI 26.0-26.9,adult (ICD-10 - Z68.26) Plan Of Treatment Medication Medication Name Sig Start Date Stop Date Notes Lisinopril 10 MG 1 tablet Orally Once a day; Duration: 90 days Treatment Notes Assessment Notes PETER (obstructive sleep apnea) Doing well with mandibular advancment device Next Appt Details Follow Up: 6 Months, Reason: Provider Name:Blu Hernandez ry, 03/09/2025 10:15:00 AM, [address] [facility], [address] , [place], [place], [id number], Progress Notes * Darrion COWANDOB:[birth year] (69 yo M)Acc No.[id number]:09/07/2024 Progress Notes Patient: Darrion CONNOR Provider: Cody Estrada M.D. :1955 A ge:68 Y S ex:Male Date:09/07/2024 Address:[address] [facility] [id number] Subjective: * Chief Complaints: * 1 . [...] be faxed to Dr. Theron Monahan in [place]. * ROS: D ERMATOLOGY: no R allan. [...] General Appearance: N AD. H EENT: u nremarkable.?Heart: R SR. L ungs: c lear to auscultation. E xtremities: n o leg edema.? Assessment: * Assessment: 1. E ssential hypertension [...] O SA (obstructive sleep apnea) - G47.33 8 . 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 B OH 26.0-26.9,adult - Z68.26 Plan: * Treatment: Value Reference Range A [...] G 2211 Complex e/m visit add on, 3044F HG A1C LEVEL LT 7.0%, 1036F TOBACCO NON- USER, G8420 BMI<30 AND >=22 CALC & DOCU, G8783 BP SCR PRFRM RCMDD DEFIND SCR INTVL, G8752 MOST RECENT SYSTOLIC BP < 140MM HG, G8754 MOST RECENT DIASTOLIC BP < 90MM HG, 3017F COLORECTAL CA SCREEN DOC REV * Preventive Medicine: Screening / Special Tests: C olonoscopy Dr. Li, polyps, diverticulosis, hemorrhoids, repeat 5-7 years. * Follow Up: 6 Months * Images: Billing Information: * Visit Code: 37078 Office Visit, Est Pt., Level 4. * Procedure Codes: G2211 Complex e/m visit add on. 3044F HG A1C LEVEL LT 7.0%. 1036F TOBACCO NON-USER. G8420 BMI<30 AND >=22 CALC & DOCU. G8783 BP SCR PRFRM RCMDD DEFIND SCR INTVL. G8752 MOST RECENT SYSTOLIC BP < 140MM HG. G8754 MOST RECENT DIASTOLIC BP < 90MM HG. 3017F COLORECTAL CA SCREEN DOC REV. * Electronic signature of Cyn Estrada MD on 01/03/2025 at 08:35 PM EDT Sign off status: Pending * Provider: Cody Estrada M.D. Date: 0 09/07/2024 Generated for Gregoryi ng/Fajohng/eTransmitting on: 1 08:35 PM EDT History and Physical Notes * HPI (History of Present Illness) Category Sub-Category Detail Notes Category Not es Endocrinology Recent Blood Sugars Pt here to f /u on DM 2. Pt requesting lab results from today to be faxed to Dr. Theron Monahan in [place] [facility] Blood Pressure Elevated Pt here for 6 mo f/u on hypertension. Pt states he is doing well and does not have any concerns Hyperlipidemia Pt is fasting today Examination Category Sub-Category Detail Notes Category Not es Endocrinology HEENT: unremarkable Heart: RSR Lungs: clear to auscultatio n Extremities: no leg edema General Appearance: NAD
--- OUTSIDE RECORDS SUMMARY | 2025-01-03 20:34 | XMS_ITS | Clinical Summary ---
Author Organization [facility] Address [address] [place] [address] Care Team Providers Care College Teacher Name Role Phone Blu Estrada MD Primary Care Provider + [phone] Allergies No known active allergies Medications modafinil [...] 2 Woodrow Brain cancer Father Jose Guadalupe Camryn Sr Cancer Father Jose Guadalupe Shipley Sr Diabetes Mother Jenifer Shipley Relation Name Status Comments Brother 1 Jose Guadalupe Alive Brother 2 Woodrow Alive Daughter 1 Melanie Alive Daughter 2 Belkys Alive Father Jose Guadalupe Judgex Sr Mother Jenifer Shipley Social History Tobacco [...] Description 02/08/2025 8:00 AM EST Office Visit [facility] [address] [place] [address] Thao Crump MD [address] [place] [address] Health Maintenance Due Date Last Done Comments LIPID PANEL 1956 TDAP/TD VACCINES (1 - Tdap) 10/11/1975 COLOGUARD 2001 COLON CANCER SCREENING 5 YEA R SIGMOIDOSCOPY 2001 COLONOSCOPY 2001 COLORECTAL CANCER SCREENING 2001 CT COLONOGRAPHY 2001 FECAL OCCULT BLOOD TEST 2001 FIT Testing (1 year) 2001 ZOSTER VACCINE (1 of 2) 2006 ANNUAL WELLNESS VISIT 02/10/2023 HEPATITIS C SCREENING 02/10/2023 INFLUENZA VACCINE 10/22/2024 03/09/2024, , 12/07/2018, Additional history exists COVID-19 Vaccine (3 - 2024-2 6 season) 2024 02/22/2021, 05/31/2020 HEMOGLOBIN A1C 02/06/2025 08/06/2024, 03/24, 12/19/2023, Additional history exists DIABETIC EYE EXAM 03/03/2025 03/03/2024 (Pa tient-Reported (Performed Externally)), 02/20/2023 (Patient-Reported (Performed Externally)) DIABETIC FOOT EXAM 04/08/2025 04/08/2024, 0 04/08/2024, 04/08/2024 URINE MICROALBUMIN-CREATININ E RATIO (uACR) 09/09/2025 09/09/2024, 09/08/2023, 09/08/2023 Pneumococcal Vaccine 50+ Completed 03/09/2024, 03/2022 Procedures Procedure Name Priority Date/Time Associated Diagnosis Comments MICROALBUMIN / CREATININE URINE RATIO Routine 09/09/2024 POCT GLYCOSYLATED HEMOGLOBIN (HGB A1C) Routine 08/06/2024 8:48 AM EDT Type 2 diabetes mellitus with hyperglycemia, without long-term current use of insulin from Last 3 Months or Most Recently Relevant to Health Maintenance Results * Microalbumin / Creatinine Urine Ratio - Urine, Clean Catch (09/09/2024) Albumin/Creatin ine Ratio, Urine 5 Urine Urine specimen obtained by clean catch procedure / Unknown 09/09/2024 us Historical Provider URINE ORDERABLES Final Re sult * (ABNORMAL) POC Glycosylated Hemoglobin (Hb A1C) (08/06/2024 8:48 AM EDT) Hemoglobin A1C 6.4(A) 4.5 - 5.7 % [facility] Lot Number [facility] Expiration Date [facility] Blood 08/06/2024 8:48 AM EDT us Thao Crump MD POINT OF CARE TEST ORDERABLES F inal Result [facility]
[address] [place] [address], [place] [phone] from Last 3 Months or Most Recently Relevant to Health Maintenance Insurance [facility]ICARE A [facility] Care Teams College Teacher Relationship Specialty Start Date End Date Blu Estrada MD [address] [place] [address] [place] [address] PCP - General Family Medicine 02/11/23
--- OUTSIDE RECORDS SUMMARY | 2025-01-03 20:35 | XMS_ITS | Encounter Summary ---
Author Organization Healthcare Address [address] [id number] Care Team Providers Care Rod Hanger Name Role Phone Blu Estrada MD Primary Care Provider [phone] Reason for Referral * Consultation (Routine) - Closed Specialty Diagnoses / Procedures Referred By Anna layne Referred To Contact Dentist / Pain Medicine Diagnoses Obstructive sleep apnea Mariaa Macdonald MD [address] [place] [address] Phone: tel: fax: Jenifer Tejeda, DDS [address] [facility] [address] [place] [address] Phone: tel: fax: Referral ID Status Reason Start Date Expiration Date Visits Re quested Visits Authorized [id number] Closed 01/12/2024 07/13/2025 1 1 Encounter Details Date Type Department Care Team (Late st Contact Info) Description 01/12/2024 [facility] [address] [place] [address] Mariaa Macdonald MD [address] [facility] [address] [place] [address] Obstructive sleep apnea (Primary Dx) Social [...] Description 03/09/2025 2:30 PM EST [facility] [address] [place] [address] Jenifer Tejeda, DDS [address] [place] [address] Clary Valente Scheduled Referrals Name Type Priority Associated Diagnoses Order Schedule Ambulatory Referral to Orofacial Pain Outpatient Referral Routine Obstructive sleep apnea Expected: 01/12/2024 (Approximate), Expires: 07/12/2025 documented as of this encounter Visit Diagnoses Diagnosis Obstructive sleep apnea- Primary Obstructive sleep apnea (adult) (pediatric) documented in this encounter Care Teams Rod Hanger Relationship Specialty Start Date End Date Blu Estrada MD [address] [facility] [address] [place] [address] PCP - General 08/09/21 documented as of this encounter
--- OUTSIDE RECORDS SUMMARY | 2025-01-03 20:36 | XMS_ITS | Clinical Summary ---
Author Organization [facility] Address [address] [place] [address] Care Team Providers Care Event Executive Name Role Phone Blu Estrada MD Primary Care Provider [phone] Allergies No known active allergies Medications cholecalciferol [...] 1 (one) time each day. 02/15/2024 Active Family History Medical History Relation Name Comments Cancer Father Jose Guadalupe Judgex Sr Diabetes Mother Jenifer Cowan Relation Name Status Comments Father Jose Guadalupe Judgex Sr Alive Mother Jenifer Cowan Alive Social History Tobacco Use Types Packs/Day [...] Description 03/09/2025 2:30 PM EST Office Visit [place] [facility] Room [address] [address] Jenifer Tejeda, DDS [address] [address] Clary Valente Health Maintenance Due Date Last Done Comments Dental Oral Exam 1955 Dental Prophylaxis 1956 Dental X-Ray: Bitewings 1956 Dental X-Ray: Full Mouth 1956 [facility]-Depression Screening 1956 [facility]-Hepatitis C Screening [facility] Annual Wellness (AWV) 1956 [facility]-/Child/Adol SDOH Screenings 1956 [facility]- SDOH Screenings 1974 [facility]-Adult SDOH Screenings 1974 [facility]-DTaP,Tdap,and Td Vaccines (1 - Tdap) 10/11/1975 CT Colonography 2001 Colonoscopy 2001 FIT-DNA 2001 FIT 2001 FOBT 2001 Sigmoidoscopy 2001 [facility]-Colorectal Cancer Screening 2001 [facility]-Zoster Vaccines (1 of 2) 2006 NMS-[id number]-44 Vaccine (3 - season) 2024 02/22/2021, 05/31/2020 [...] patient's age to complete this topic Insurance [place] [address] Care Teams Event Executive Relationship Specialty Start Date End Date Blu Estrada MD [address] [facility] [address] [place] [address] PCP - General 08/09/21
--- OUTSIDE RECORDS SUMMARY | 2025-01-03 20:36 | XMS_ITS | Patient Health Record ---
Author Organization [facility] Address [address] [facility] [address] [facility] [address] ANGIE Guadalupe [id number] Care Team Providers Care Match Marker Name Role Phone Maxi Estradaian Primary Care Provider Allergies No Known Allergies Results Component Value Reference Range Notes P-Comprehensive Metabolic Pa zafar (CMP) Reviewed date:09/09/2024 09:06:30 AM Interpretation:K+ 6.8, gluc 132 Performing Lab: Notes/Report: Test performed by [facility] [address] [place] [address] , [address], [place] [address] Nicolas Skelton MD, Nub Card Tender CLIA: [id number] Sodium 138 135-145 mmol/L Potassium 6.8 3.5-5.3 [...] Interpretation:Normal Performing Lab: Notes/Report: Test performed by [facility] [address] [facility] , [address], [place] [address] Nicolas Skelton MD, Nub Card Tender MIAH: [id number] Cholesterol 189 <200 mg/dL Triglycerides 114 <150 [...] Interpretation:Normal Performing Lab: Notes/Report: Test performed by [facility] [address] , [place] [address] Nicolas Skelton MD, Nub Card Tender CLIA: [id number] PSA 1.55 <4.00 ng/mL Please note this is an ultrasensitive PSA assay with a lower limit of detection of 0.014 ng/mL. This test is performed by the [employer] methodology. Values obtained with different assay methods or kits cannot be directly compared. P-TSH reflex to FT4 Reviewed date:09/09/2024 09:06:30 AM Interpretation:Normal Performing Lab: Notes/Report: Test performed by [facility] , [place] [address] Nicolas Skelton MD, Nub Card Tender CLIA: [id number] TSH reflex to FT4 1.28 0.43-5.25 mU/L P-Microalbumin/Creatinine, R andom Urine Sample Reviewed date:09/09/2024 09:06:30 AM Interpretation:Normal Performing Lab: Notes/Report: Test performed by [facility] , [address], [place] [address] Nicolas Skelton MD, Nub Card Tender CLIA: [id number] Albumin/Creatinine Ratio, Urine 5 0-30 ug/mg Microalbumin, Urine, Random 0.5 Creatinine, Urine 92.1 P-Vitamin D 25-Hydroxy Reviewed date:09/09/2024 09:06:30 AM Interpretation:46.3 Performing Lab: Notes/Report: Test performed by [facility] , [address], [place] [address] Nicolas Skelton MD, Nub Card Tender CLIA: [id number] Vitamin D 25-Hydroxy 46.3 30.0-100.0 ng/mL Interpretation [...] Vaccine Route Administration Date Status Comme nts Prevnar (PCV20) IM Intramuscular 02/21/2023 Administered PNEUMOVAX 23 VACCINE IM Intramuscular 03/09/2024 Administe red Fluzone Quad (6months&older) IM Intramuscular 02/04/2017 Administered Fluzone Quad (6months&older) IM Intramuscular 12/07/2018 Administered Fluzone Quad (6months&older) IM Intramuscular 02/05/2021 Administered Fluzone High Dose (65yr and older) IM Intramuscular 02/21/2023 Administered Fluzone High Dose (65yr and older) IM Intramuscular 03/09/2024 Administered Flublok IM Intramuscular 02/27/2018 Administered COVID 19 Pfizer Unknown 02/22/2021 Administered COVID 19 David Unknown 05/31/2020 Administered Problems Problem Type SNOMED Code ICD Code Onset Dates Problem Status W/U Status Risk Notes Problem Vitamin D deficiency (56250429) Vitamin D deficiency (E55.9) Active confirmed Problem Essential hypertension (72719158) Essential hypertension (I10) Active confirmed Problem Hypertriglyceridemia (634090176) Hypertriglyceridemia (E78.1) Active confirmed Problem Tremor (24097146) Tremor (R25.1) Active confirm ed Problem Impaired fasting glucose (867959040) Impaired fasting glucose (R73.01) Active confirmed Problem Generalized anxiety disorder (13228768) Generalized anxiety disorder (F41.1) Active confirmed Problem Mixed hyperlipidemia (217606484) Mixed hyperlipidemia (E78.2) Active confirmed Problem Essential tremor (127608670) Essential tremor (G25.0) Active confirmed Problem Erectile dysfunction (disorder) (512326989) Erectile dysfunction, unspecified erectile dysfunction type (N52.9) Active confirmed Problem Obstructive sleep apnea syndrome (37130605) PETER (obstructive sleep apnea) (G47.33) Active confirmed Problem Carpal tunnel syndrome of left wrist (337259832359103) Carpal tunnel syndrome of left wrist (G56.02) Active confirmed Problem Type II diabetes mellitus without complication (015847211) Type 2 diabetes mellitus without complication, without long-term current use of insulin (E11.9) Active confirmed Problem Chronic rhinitis (35723884) Rhinitis, unspecified type (J31.0) Active confirmed Problem Pure hypercholesterolemia (548051901) Pure hypercholesterolemia (E78.00) Active confirmed Problem Lesion of ulnar nerv e (985495816) 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) Active confirmed Vital Signs Heart Rate 75 /min 09/07/2024 Blood pressure diastolic 70 mm Hg 09/07/2024 Height 69.50 in 09/07/2024 Blood pressure systolic 124 mm Hg 09/07/2024 Weight 178.8 lbs 09/07/2024 BMI 26.02 kg/m2 09/07/2024 Encounters Encounter Location Date Provider Diagnosis [facility] [address] [place] Guadalupe [id number] 03/09/2024 Blu [place] Essential hypertensi on I10 ; Vitamin D deficiency E55.9 ; Mixed hyperlipidemia E78.2 ; Hypertriglyceridemia E78.1 ; Essential tremor G25.0 and Encounter for immunization Z23 [facility] [address] [facility] [address] [id number] 09/07/2024 Blu [place] Essential hypertensi on I10 ; Mixed hyperlipidemia E78.2 ; Hypertriglyceridemia E78.1 ; Vitamin D deficiency E55.9 ; Type 2 diabetes mellitus without complication, without long-term current use of insulin E11.9 ; Prostate cancer screening Z12.5 ; PETER (obstructive sleep apnea) G47.33 ; Type 2 diabetes mellitus with diabetic mononeuropathy, unspecified whether half-way insulin use E11.41 and BMI 26.0-26.9,adult Z68.26 [facility] [address] [facility] [address] [id number] 09/09/2024 Blu Estrada Abnormal finding of blood [...] angelito itus with diabetic mononeuropathy, unspecified whether half-way insulin use (ICD-10 - E11.41) 09/07/2024 BMI 26.0-26.9,adult (ICD-10 - Z68.26) Plan Of Treatment Next Appt Details Provider Name:Blu Hernandez ry, 03/09/2025 10:15:00 AM, [address], [address], [place], [place], [id number], Insurance Providers Payer Name Payer Address Payer Phone Subscriber Number Group Number Insured Name Patient Relationship to Insured Coverage Start Date Coverage End Date MEDICARE PART B [address] [address] [place] Lubin [address] [id number] Darrion Shipley Self - patient is the insured [facility] [address] [place] [address] [id number] Darrion Shipley Self - patient is [...]
== END ==
LOC: SL 20:33
PROVIDERS: PCP Family Medicine; Visit Provider Specialist
DX: G47.33 Obstructive sleep apnea (adult) (pediatric) (principal); G47.34 Idiopathic sleep related nonobstructive alveolar hypoventilation; G47.09 Other insomnia; I10 Essential (primary) hypertension